=== PATIENT | male | born 1940 | race Caucasian/White ===

== ENCOUNTER 2016-07-23 09:07 | Observation (INO) | payer OTHER ==
[2016-07-23] MEDS ORDERED: TUSSIONEX PENNKINETIC SUSP PO PRN (10:57)
[2016-07-23] MEDS: DUONEB 0.5 MG/3 MG NEB SCH ×4 (11:33→20:23)
[2016-07-23 11:53] LABS: BASOPHILS # (AUTO) 0.1 X10^3/uL (0.0-0.1); BASOPHILS % (AUTO) 0.7 % (0.2-1.0); EOSINOPHILS # (AUTO) 0.2 x10^3/uL (0.0-0.2); EOSINOPHILS % (AUTO) 1.9 % (0.9-2.9); HEMATOCRIT 42.4 % (42.0-54.0); HEMOGLOBIN 14.5 g/dL (13.5-18.0); LYMPHOCYTES # (AUTO) 1.3 X10^3/uL (1.3-2.9); MEAN CORPUSCULAR HGB CONC 34.3 g/dL (33.0-35.0); MEAN CORPUSCULAR VOLUME 81.7 fL (80.0-100.0); MEAN PLATELET VOLUME 8.5 fL (7.4-11.0); MONOCYTES # (AUTO) 0.8 x10^3/uL (0.3-0.8); MONOCYTES % (AUTO) 7.9 % (0.0-13.0); NEUTROPHILS # (AUTO) 8.2 x10^3/uL (2.2-4.8); NEUTROPHILS % (AUTO) 77.5 % (42.0-75.0); PLATELET COUNT 203 X10^3/uL (150.0-450.0); RED BLOOD COUNT 5.19 X10^6/uL (4.7-6.0); RED CELL DISTRIBUTION WIDTH 14.7 % (11.6-16.5); WHITE BLOOD COUNT 10.6 X10^3/uL (3.6-10.0)
[2016-07-23 12:00] LABS: ALANINE AMINOTRANSFERASE 15 Units/L (12-78); ALKALINE PHOSPHATASE 86 Units/L (46-116); ASPARTATE AMINO TRANSFERASE 14 Units/L (15-37); BLOOD UREA NITROGEN 21 mg/dL (7-18); CALCIUM 9.4 mg/dL (8.5-10.1); CARBON DIOXIDE 28.9 mmol/L (21-32); CHLORIDE 101 mmol/L (98-107); COR NA(FOR HYPERGLY) 143 mmol/L (136-145); CREATININE 1.09 mg/dL (0.70-1.30); GLUCOSE 160 mg/dL (65-99); SODIUM 142 mmol/L (136-145); eGFR BLACK RACES > 60 (>60); eGFR NON BLACK RACES > 60 (>60)
--- NOTE | 2016-07-23 12:32 | RAD ---
HISTORY: Pneumonia, coughing Study: Two-view Chest Comparison: Findings: The trachea is midline . There is no widening or shift of mediastinum. The cardiac silhouette appear s within normal limits. The costophrenic angles are sharp and both diaphragms are adequately maintai jeffrey. The lungs are adequately aerated. Osseous structures are within normal limits for the patient's age peribronchial cuffing centrally consistent with bronchitis. IMPRESSION: 1. Heart normal size possible bronchitis. No evidence of bacterial pneumonia. Reported By:
[2016-07-23 12:34] VITALS: BMI 26.4
[2016-07-23] MEDS ORDERED: NS 1/2 1000 ML IV 1,000 ML IV ONE (12:38)
[2016-07-23] MEDS: LEVAQUIN PREMIX IV 750 MG 750 MG/150 ML BAG IV SCH (12:48)
[2016-07-23] MEDS: NS 1/2 1000 ML IV 1,000 ML IV SCH (12:48)
[2016-07-23] MEDS: ROBITUSSIN DM PO SCH ×3 (12:48→20:21)
[2016-07-23] MEDS ORDERED: POTASSIUM CHLORIDE LIQ 20 MEQ UDC PO PRN (17:46)
[2016-07-23] MEDS ORDERED: K-LYTE EFFERVESCENT PO PRN (17:46)
[2016-07-23] MEDS: K-DUR TAB 20 MEQ PO PRN (19:13)
[2016-07-23] MEDS ORDERED: TYLENOL 325 MG TAB PO PRN (20:06)
[2016-07-23] MEDS: NORVASC TAB 10 MG PO SCH ×2 (20:21→22:01)
[2016-07-23] MEDS: SINEMET (PLAIN) 25/250 MG PO SCH (20:24)
[2016-07-23] MEDS: ZOCOR TAB 40 MG PO SCH (20:25)
[2016-07-23] MEDS: SNACK - Diabetic Appropriate PO SCH (22:00)
[2016-07-24] MEDS: DUONEB 0.5 MG/3 MG NEB SCH ×6 (01:08→20:45)
[2016-07-24] MEDS ORDERED: RESTORIL CAP 15 MG PO PRN (01:23)
[2016-07-24] MEDS: NS 1/2 1000 ML IV 1,000 ML IV SCH ×2 (01:37→18:03)
[2016-07-24] MEDS ORDERED: NS 1/2 1000 ML IV 1,000 ML IV ONE ×2 (02:38→17:59)
[2016-07-24 06:01] LABS: BASOPHILS # (AUTO) 0.1 X10^3/uL (0.0-0.1); BASOPHILS % (AUTO) 0.8 % (0.2-1.0); EOSINOPHILS # (AUTO) 0.1 x10^3/uL (0.0-0.2); EOSINOPHILS % (AUTO) 1.5 % (0.9-2.9); HEMATOCRIT 37.2 % (42.0-54.0); HEMOGLOBIN 12.6 g/dL (13.5-18.0); MEAN CORPUSCULAR HEMOGLOBIN 27.7 pg (27.0-34.0); MEAN CORPUSCULAR HGB CONC 33.8 g/dL (33.0-35.0); MEAN CORPUSCULAR VOLUME 81.8 fL (80.0-100.0); MEAN PLATELET VOLUME 8.7 fL (7.4-11.0); MONOCYTES % (AUTO) 9.7 % (0.0-13.0); NEUTROPHILS # (AUTO) 7.8 x10^3/uL (2.2-4.8); PLATELET COUNT 181 X10^3/uL (150.0-450.0); RED BLOOD COUNT 4.54 X10^6/uL (4.7-6.0); RED CELL DISTRIBUTION WIDTH 14.7 % (11.6-16.5); WHITE BLOOD COUNT 9.9 X10^3/uL (3.6-10.0)
[2016-07-24 06:14] LABS: ALANINE AMINOTRANSFERASE 14 Units/L (12-78); ALBUMIN 3.2 g/dL (3.4-5.0); ALKALINE PHOSPHATASE 68 Units/L (46-116); ASPARTATE AMINO TRANSFERASE 14 Units/L (15-37); BLOOD UREA NITROGEN 18 mg/dL (7-18); CALCIUM 8.8 mg/dL (8.5-10.1); CARBON DIOXIDE 24.7 mmol/L (21-32); CHLORIDE 104 mmol/L (98-107); COR CA(FOR HYPOALB) 9.4 mg/dL (8.5-10.1); COR NA(FOR HYPERGLY) 144 mmol/L (136-145); CREATININE 1.12 mg/dL (0.70-1.30); GLUCOSE 175 mg/dL (65-99); MAGNESIUM 1.7 mg/dL (1.7-2.9); SODIUM 142 mmol/L (136-145); TOTAL PROTEIN 6.6 g/dL (6.4-8.2); eGFR BLACK RACES > 60 (>60); eGFR NON BLACK RACES > 60 (>60)
[2016-07-24] MEDS: K-DUR TAB 20 MEQ PO PRN (06:30)
--- NOTE | 2016-07-24 06:51 | RAD ---
HISTORY: Cough Study: Chest one view Comparison: July 23, 2016 Findings: The trachea is midline. The cardiac silhouette is unremarkable. The lungs are free of acute alveol ar infiltrates. No pleural effusions are identified. There is peribronchial thickening consistent wi th bronchitis.. The bony thorax is unremarkable. IMPRESSION: . Peribronchial thickening consistent with bronchitis Reported By:
[2016-07-24] MEDS: LEVAQUIN PREMIX IV 750 MG 750 MG/150 ML BAG IV SCH (08:40)
[2016-07-24] MEDS: SINEMET (PLAIN) 25/250 MG PO SCH ×2 (08:41→20:32)
[2016-07-24] MEDS: ECOTRIN TAB 325 MG PO SCH (08:41)
[2016-07-24] MEDS: HYZAAR 50/12.5 MG PO SCH (08:41)
[2016-07-24] MEDS: ROBITUSSIN DM PO SCH ×4 (08:41→20:32)
[2016-07-24] MEDS ORDERED: MAALOX or MYLANTA PO PRN (11:32)
[2016-07-24] MEDS ORDERED: GLUCOPHAGE ONE (17:59)
[2016-07-24] MEDS: GLUCOPHAGE PO SCH (18:04)
[2016-07-24] MEDS: ZOCOR TAB 40 MG PO SCH (20:33)
[2016-07-24] MEDS: NORVASC TAB 10 MG PO SCH (20:33)
[2016-07-24] MEDS: SNACK - Diabetic Appropriate PO SCH (20:34)
--- NOTE | 2016-07-24 22:00 | DR.UPDATE ---
H&P Update History and Physical Update: H&P UPDATE FOR ADMISSION 07/23/16 MR. KIM'S H&P WAS COMPLETED IN OUR OFFICE PRIOR TO ADMISSION. HE HAS BEEN SEEN AND EXAMINED WITH NO CHANGES NOTED.
--- NOTE | 2016-07-24 22:03 | PCM.PROG ---
Progress Note - Progress Note for Day of Date: 07/24/16 - Subjective Subjective: PATIENT RESTS IN BED, AT BEDSIDE. PATIENT CONTINUES PNEUMONIA PROTOCOL WITH IV LEVAQUIN, DUONEBS, ROBITUSSIN, TUSSIONEX, AND SUPPLEMENTAL OXYGEN. PATIENT IS NOTED WITH A COARSE, NON-PRODUCTIVE COUGH. PATIENT IS AFEBRILE. ON AUSCULTATION, LUNGS ARE NOTED WITH WHEEZING THROUGHOUT. CBC WNL EXCEPT: H/H 12.6/37.2. CMP WNL EXCEPT: POTASSIUM 3.2, GLUCOSE 175, ALBUMIN 3.2. WE WILL CONTINUE CURRENT TREATMENT AND FOLLOW UP IN AM WITH LABS AND CHEST XRAY. - Past Medical Family Social History Past Med/Fam/Surg Hx: No changes since H&P Allergies: Allergies No Known Drug Allergy Allergy (Verified 11/03/14 15:11) - Review of Systems ROS: No change since H&P - Vital Signs and I&O's Vital Signs: Temperature 98.1 F Pulse Rate [Left Brachial] 100 Pulse Rate [Right Brachial] 55 Pulse Rate 99 Respiratory Rate 20 Blood Pressure [Right Arm] 113/57 Blood Pressure [Left Arm] 130/71 Blood Pressure 158/90 O2 Sat by Pulse Oximetry 95 Intake and Output: Intake & Output 07/22/16 07/23/16 07/24/16 07/25/16 11:59 11:59 11:59 11:59 Intake Total 1660 695 Output Total 2550 Balance -890 695 - Physical Exam Oriented: Normal, Time, Person, Place Eyes: Normal. negative: Diplopia, Discharge, Pain, Redness, Photophobia Ear: Normal. negative: Swelling, Ecchymosis, Hemotypanum, Abrasion, Laceration Nose: Discharge. negative: Injected, Blood Throat: Red, Dry. negative: Exudate Respiratory: Generalized, Wheezes Cardiovascular: Normal. negative: Murmur, Edema : Normal. negative: Dysuria, Hematuria, Frequency, Discharge, Testicular Pain Auscultation: Bowel Sounds: Normal. negative: Bruit Palpation: Normal. negative: Spleen Enlarged, Liver Enlarged, Mass Pulsatile Tenderness: Normal. negative: Rebound, Guarding, Rigidity Skin: Normal. negative: Diaphoresis, Wound, Bruising, Ecchymosis Musculoskeletal: Normal Psychiatric: Normal Mood Description: Calm, Appropriate Affect: Normal Speech Pattern: Clear, Appropriate - Laboratory and Diagnostics Result Diagrams: 07/24/16 03:23 07/24/16 13:10 Labs: 07/23/16 11:39 Sputum - Expectorated Sputum Sputum Culture - Preliminary 07/23/16 11:39 Sputum - Expectorated Sputum - Final Laboratory WBC 9.9 X10^3/uL (3.6-10.0) 07/24/16 03:23 RBC 4.54 X10^6/uL (4.7-6.0) L 07/24/16 03:23 Hgb 12.6 g/dL (13.5-18.0) L 07/24/16 03:23 Hct 37.2 % (42.0-54.0) L 07/24/16 03:23 MCV 81.8 fL (80.0-100.0) 07/24/16 03:23 MCH 27.7 pg (27.0-34.0) 07/24/16 03:23 MCHC 33.8 g/dL (33.0-35.0) 07/24/16 03:23 RDW 14.7 % (11.6-16.5) 07/24/16 03:23 Plt Count 181 X10^3/uL (150.0-450.0) 07/24/16 03:23 MPV 8.7 fL (7.4-11.0) 07/24/16 03:23 Neut % 78.0 % (42.0-75.0) H 07/24/16 03:23 Lymph % 10.0 % (21.0-51.0) L 07/24/16 03:23 [place] % 9.7 % (0.0-13.0) 07/24/16 03:23 Eos % 1.5 % (0.9-2.9) 07/24/16 03:23 Baso % 0.8 % (0.2-1.0) 07/24/16 03:23 Neut # 7.8 x10^3/uL (2.2-4.8) H 07/24/16 03:23 Lymph # 1.0 X10^3/uL (1.3-2.9) L 07/24/16 03:23 [place] # 1.0 x10^3/uL (0.3-0.8) H 07/24/16 03:23 Eos # 0.1 x10^3/uL (0.0-0.2) 07/24/16 03:23 Baso # 0.1 X10^3/uL (0.0-0.1) 07/24/16 03:23 Absolute Nucleated RBC 0.0 /100WBC 07/24/16 03:23 Sodium 142 mmol/L (136-145) 07/24/16 03:23 Corrected Sodium 144 mmol/L (136-145) 07/24/16 03:23 Potassium 4.2 mmol/L (3.5-5.1) 07/24/16 13:10 Chloride 104 mmol/L (98-107) 07/24/16 03:23 Carbon Dioxide 24.7 mmol/L (21-32) 07/24/16 03:23 BUN 18 mg/dL (7-18) 07/24/16 03:23 Creatinine 1.12 mg/dL (0.70-1.30) 07/24/16 03:23 Est GFR (MDRD) Af Amer > 60 (>60) 07/24/16 03:23 Est GFR (MDRD) Non-Af > 60 (>60) 07/24/16 03:23 Glucose 175 mg/dL (65-99) H 07/24/16 03:23 Calcium 8.8 mg/dL (8.5-10.1) 07/24/16 03:23 Corrected Calcium 9.4 mg/dL (8.5-10.1) 07/24/16 03:23 Magnesium 1.7 mg/dL (1.7-2.9) 07/24/16 03:23 Total Bilirubin 0.60 mg/dL (0.2-1.0) 07/24/16 03:23 AST 14 Units/L (15-37) L 07/24/16 03:23 ALT 14 Units/L (12-78) 07/24/16 03:23 Alkaline Phosphatase 68 Units/L (46-116) 07/24/16 03:23 Total Protein 6.6 g/dL (6.4-8.2) 07/24/16 03:23 Albumin 3.2 g/dL (3.4-5.0) L 07/24/16 03:23 Globulin 3.4 g/dL (2.5-4.5) 07/24/16 03:23 Albumin/Globulin Ratio 0.9 Ratio (1.1-2.1) L 07/24/16 03:23 Influenza A (H1N1) PCR Not detected (NOT DETECT) 07/23/16 12:57 Influenza Type A (PCR) Negative (NEGATIVE) 07/23/16 12:57 Influenza Type B (PCR) Negative (NEGATIVE) 07/23/16 12:57 - Plan (1) Bronchopneumonia Status: Acute Plan: CONTINUE IV LEVAQUIN, DUONEBS, ROBITUSSIN, TUSSIONEX, SUPPLEMENTAL OXYGEN , MONITOR LABS AND CHEST XRAY. (2) Essential hypertension Status: Chronic
[2016-07-25] MEDS: DUONEB 0.5 MG/3 MG NEB SCH ×3 (01:02→08:46)
[2016-07-25] MEDS ORDERED: NS 1/2 1000 ML IV 1,000 ML IV ONE (04:59)
[2016-07-25] MEDS: NS 1/2 1000 ML IV 1,000 ML IV SCH (05:21)
[2016-07-25 06:30] LABS: ALANINE AMINOTRANSFERASE 12 Units/L (12-78); ALBUMIN 3.3 g/dL (3.4-5.0); ALKALINE PHOSPHATASE 69 Units/L (46-116); ASPARTATE AMINO TRANSFERASE 16 Units/L (15-37); BLOOD UREA NITROGEN 11 mg/dL (7-18); CALCIUM 9.4 mg/dL (8.5-10.1); CARBON DIOXIDE 25.7 mmol/L (21-32); CHLORIDE 106 mmol/L (98-107); COR NA(FOR HYPERGLY) 144 mmol/L (136-145); CREATININE 0.95 mg/dL (0.70-1.30); GLUCOSE 130 mg/dL (65-99); MAGNESIUM 1.9 mg/dL (1.7-2.9); SODIUM 143 mmol/L (136-145); TOTAL PROTEIN 6.7 g/dL (6.4-8.2); eGFR BLACK RACES > 60 (>60); eGFR NON BLACK RACES > 60 (>60)
[2016-07-25 06:37] LABS: BASOPHILS # (AUTO) 0.1 X10^3/uL (0.0-0.1); BASOPHILS % (AUTO) 1.3 % (0.2-1.0); EOSINOPHILS # (AUTO) 0.2 x10^3/uL (0.0-0.2); EOSINOPHILS % (AUTO) 3.5 % (0.9-2.9); HEMATOCRIT 36.6 % (42.0-54.0); HEMOGLOBIN 12.5 g/dL (13.5-18.0); LYMPHOCYTES % (AUTO) 14.5 % (21.0-51.0); MEAN CORPUSCULAR HEMOGLOBIN 28.1 pg (27.0-34.0); MEAN CORPUSCULAR HGB CONC 34.3 g/dL (33.0-35.0); MEAN CORPUSCULAR VOLUME 82.1 fL (80.0-100.0); MEAN PLATELET VOLUME 8.6 fL (7.4-11.0); MONOCYTES # (AUTO) 0.7 x10^3/uL (0.3-0.8); MONOCYTES % (AUTO) 10.4 % (0.0-13.0); NEUTROPHILS % (AUTO) 70.3 % (42.0-75.0); PLATELET COUNT 189 X10^3/uL (150.0-450.0); RED BLOOD COUNT 4.46 X10^6/uL (4.7-6.0); RED CELL DISTRIBUTION WIDTH 14.3 % (11.6-16.5); WHITE BLOOD COUNT 7.1 X10^3/uL (3.6-10.0)
--- NOTE | 2016-07-25 07:23 | RAD ---
HISTORY: Pneumonia Study: Single-view chest, done portably Comparison: July 24, 2016 Findings: Trachea is midline. Heart size is at the upper limits of normal with aortic uncoiling. Peribronchial cuffing is seen in the hilar regions bilaterally compatible with bronchitis. No consolidation, CHF, pleural fluid or pneumothorax is seen. Osseous structures are intact. IMPRESSION: Hypertensive configuration. Peribronchial cuffing in the hilar regions bilaterally, compatible with bronchitis. No consolidation is seen. There is no significant interval change. Reported By:
[2016-07-25] MEDS ORDERED: GLUCOPHAGE ONE (08:29)
[2016-07-25] MEDS: GLUCOPHAGE PO SCH (08:51)
[2016-07-25] MEDS: HYZAAR 50/12.5 MG PO SCH (08:51)
[2016-07-25] MEDS: LEVAQUIN PREMIX IV 750 MG 750 MG/150 ML BAG IV SCH (08:51)
[2016-07-25] MEDS: ECOTRIN TAB 325 MG PO SCH (08:51)
[2016-07-25] MEDS: ROBITUSSIN DM PO SCH (08:51)
[2016-07-25] MEDS: SINEMET (PLAIN) 25/250 MG PO SCH (08:51)
[2016-07-25 09:20] VITALS: BP 158/71
== END 2016-07-25 10:45 | disposition home or self-care (01) ==
LOC: MED/SURG 09:07 → UNDOADMOB 09:07 → MED/SURG 10:10
PROVIDERS: ADMIT Internal Medicine; ATTEND Internal Medicine
DX: J18.0 Bronchopneumonia, unspecified organism (principal); I10 Essential (primary) hypertension; D64.89 Other specified anemias; I25.10 Atherosclerotic heart disease of native coronary artery without angina pectoris; E11.65 Type 2 diabetes mellitus with hyperglycemia; E87.6 Hypokalemia
CPT/HCPCS: 36415; 71010; 71020; 80053; 83735; 84132; 85025; 87040; 87070; 87205; 87502; 87503; 94640; 94760; A4222; G0378; J1956; J7620

== ENCOUNTER 2022-10-01 08:16 | Inpatient (IN) ==
--- NOTE | 2022-10-01 12:10 | EKG ---
Test Reason : weakness Blood Pressure : */* mmHG Vent. Rate : 79 BPM Atrial Rate : 79 BPM P-R Int : 198 ms QRS Dur : 82 ms QT Int : 386 ms P-R-T Axes : 98 -7 11 degrees QTc Int : 442 ms Normal sinus rhythm Inferior infarct , age undetermined Abnormal ECG No previous ECGs available Confirmed by Arnold Iraheta ([id number]) on 10/02/2022 4:38:33 PM Referred By: Confirmed By: Arnold Iraheta
[2022-10-01] MEDS: NS 1,000 ML IV 1,000 ML IV SCH (12:15)
[2022-10-01 12:34] LABS: BASOPHILS # (AUTO) 0.1 X10^3/uL (0.0-0.1); EOSINOPHILS # (AUTO) 0.4 x10^3/uL (0.0-0.2); EOSINOPHILS % (AUTO) 4.3 % (0.9-2.9); HEMATOCRIT 42.1 % (42.0-54.0); HEMOGLOBIN 14.7 g/dL (13.5-18.0); LYMPHOCYTES # (AUTO) 1.3 X10^3/uL (1.3-2.9); LYMPHOCYTES % (AUTO) 15.2 % (21.0-51.0); MEAN CORPUSCULAR HEMOGLOBIN 28.4 pg (27.0-34.0); MEAN CORPUSCULAR VOLUME 81.2 fL (80.0-100.0); MEAN PLATELET VOLUME 8.1 fL (7.4-11.0); MONOCYTES # (AUTO) 0.7 x10^3/uL (0.3-0.8); MONOCYTES % (AUTO) 8.5 % (0.0-13.0); NEUTROPHILS # (AUTO) 5.9 x10^3/uL (2.2-4.8); PLATELET COUNT 248 X10^3/uL (150.0-450.0); RED BLOOD COUNT 5.18 X10^6/uL (4.7-6.0); RED CELL DISTRIBUTION WIDTH 14.6 % (11.6-16.5); WHITE BLOOD COUNT 8.3 X10^3/uL (3.6-10.0)
[2022-10-01 12:45] LABS: ALANINE AMINOTRANSFERASE 47 Units/L (12-78); ALBUMIN 3.8 g/dL (3.4-5.0); ALKALINE PHOSPHATASE 116 Units/L (46-116); ASPARTATE AMINO TRANSFERASE 31 Units/L (15-37); BLOOD UREA NITROGEN 21 mg/dL (7-18); CALCIUM 9.3 mg/dL (8.5-10.1); CARBON DIOXIDE 36.6 mmol/L (21-32); CHLORIDE 98 mmol/L (98-107); COR NA(FOR HYPERGLY) 142 mmol/L (136-145); CREATINE KINASE 63 Units/L (39-308); CREATININE 1.19 mg/dL (0.70-1.30); GLUCOSE 167 mg/dL (65-99); POTASSIUM 3.4 mmol/L (3.5-5.1); SODIUM 140 mmol/L (136-145); TOTAL PROTEIN 7.7 g/dL (6.4-8.2); eGFR NON BLACK RACES > 60 (>60)
[2022-10-01 16:08] LABS: APPEARANCE,URINE CLEAR (CLEAR); COLOR,URINE YELLOW (YELLOW)
[2022-10-01 16:09] LABS: BILIRUBIN,URINE NEGATIVE (NEGATIVE); BLOOD/HEMOGLOBIN,URINE NEGATIVE (NEGATIVE); GLUCOSE, URINE NEGATIVE (NEGATIVE); KETONES,URINE NEGATIVE (NEGATIVE); LEUKOCYTE ESTERASE ,URINE NEGATIVE (NEGATIVE); NITRITES,URINE NEGATIVE (NEGATIVE); PROTEIN,URINE NEGATIVE (NEGATIVE); UROBILINOGEN,URINE NORMAL (NORMAL)
[2022-10-01] MEDS: NovoLIN R (or HumuLIN R) SUBCUT PRN ×2 (17:02→21:11)
[2022-10-01] MEDS ORDERED: K-DUR TAB 20 MEQ PO PRN (18:49)
[2022-10-01] MEDS ORDERED: KLOR-CON PO PRN (18:49)
[2022-10-01] MEDS ORDERED: K-RIDER 10 MEQ/NS 100 ML 10 MEQ/100 ML BAG IV PRN (18:49)
[2022-10-01] MEDS ORDERED: POTASSIUM CHLORIDE LIQ 20 MEQ UDC PO PRN (18:49)
[2022-10-01] MEDS ORDERED: POTASSIUM CHL 60 MEQ/NS 0.45% 500 ML IV PRN (18:49)
[2022-10-01] MEDS ORDERED: POTASSIUM CHL 40 MEQ/NS 0.45% 500 ML IV PRN (18:49)
[2022-10-01] MEDS ORDERED: MICRO K EXTEN CAP 10 MEQ PO PRN (18:49)
[2022-10-01] MEDS ORDERED: MILK OF MAGNESIA PO PRN (20:24)
[2022-10-01] MEDS ORDERED: GLUCOPHAGE ONE (21:01)
[2022-10-01] MEDS: FLOMAX PO SCH (21:05)
[2022-10-01] MEDS: COLACE CAP 100 MG PO PRN (21:05)
[2022-10-01] MEDS: GLUCOPHAGE PO SCH (21:06)
[2022-10-01] MEDS: NORVASC TAB 10 MG PO SCH (21:06)
[2022-10-01] MEDS: SNACK - Diabetic Appropriate PO SCH (21:06)
[2022-10-01] MEDS: ZOCOR TAB 40 MG PO SCH (21:06)
[2022-10-01] MEDS: SINEMET (PLAIN) 25/100 MG PO SCH (21:06)
[2022-10-01] MEDS: MAGNESIUM SULFATE 1 GRAM/100 mL PREMIX 1 G/100 ML BAG IV PRN (21:11)
--- NOTE | 2022-10-01 23:41 | CT ---
HISTORYweakness, frequent fallsSTUDYBRAIN W/O [id number]/2023TECHNIQUE r including Automated Exposure Control (AEC) and adjustment of mA and kV were utilized.Contrast: NoneFINDINGSBRAIN PARENCHYMA: No acute hemorrhage, infarct, mass, or mass effect.Colon-white differentiation is maintained.Scattered white matter chronic small vessel ischemic changes.VENTRICLES/EXTRA-AXIAL SPACES: Unremarkable size and configuration. No hydrocephalus or extra-axial fluid collections.EXTRACRANIAL STRUCTURES:Unremarkable bones and soft tissues. Minimal frothy material in the sphenoid sinus.IMPRESSIONNo acute intracranial findings with atrophy and probable chronic small vessel ischemic change. MRI is more sensitive for acute infarct. Minimal frothy material in the sphenoid sinus.Electronically signed by: Sonu Morris (Oct 01, 2022 23:40:29)
[2022-10-02] MEDS: NS 1,000 ML IV 1,000 ML IV SCH ×4 (01:23→18:43)
[2022-10-02] MEDS ORDERED: GLUCOPHAGE ONE ×3 (03:42→19:28)
[2022-10-02] MEDS: GLUCOPHAGE PO SCH ×3 (05:50→21:36)
[2022-10-02] MEDS: NovoLIN R (or HumuLIN R) SUBCUT PRN ×3 (05:51→17:20)
[2022-10-02 06:40] LABS: BASOPHILS # (AUTO) 0.1 X10^3/uL (0.0-0.1); BASOPHILS % (AUTO) 1.1 % (0.2-1.0); EOSINOPHILS # (AUTO) 0.4 x10^3/uL (0.0-0.2); EOSINOPHILS % (AUTO) 4.3 % (0.9-2.9); HEMATOCRIT 37.1 % (42.0-54.0); LYMPHOCYTES % (AUTO) 10.2 % (21.0-51.0); MEAN CORPUSCULAR HEMOGLOBIN 28.5 pg (27.0-34.0); MEAN CORPUSCULAR VOLUME 81.3 fL (80.0-100.0); MEAN PLATELET VOLUME 8.5 fL (7.4-11.0); MONOCYTES # (AUTO) 0.8 x10^3/uL (0.3-0.8); MONOCYTES % (AUTO) 9.1 % (0.0-13.0); NEUTROPHILS # (AUTO) 7.1 x10^3/uL (2.2-4.8); NEUTROPHILS % (AUTO) 75.3 % (42.0-75.0); PLATELET COUNT 230 X10^3/uL (150.0-450.0); RED BLOOD COUNT 4.57 X10^6/uL (4.7-6.0); RED CELL DISTRIBUTION WIDTH 14.7 % (11.6-16.5); WHITE BLOOD COUNT 9.4 X10^3/uL (3.6-10.0)
[2022-10-02 06:48] LABS: ALANINE AMINOTRANSFERASE 38 Units/L (12-78); ALBUMIN 3.1 g/dL (3.4-5.0); ALKALINE PHOSPHATASE 93 Units/L (46-116); ASPARTATE AMINO TRANSFERASE 35 Units/L (15-37); BLOOD UREA NITROGEN 25 mg/dL (7-18); CALCIUM 8.5 mg/dL (8.5-10.1); CARBON DIOXIDE 29.5 mmol/L (21-32); CHLORIDE 99 mmol/L (98-107); COR CA(FOR HYPOALB) 9.2 mg/dL (8.5-10.1); COR NA(FOR HYPERGLY) 141 mmol/L (136-145); CREATININE 1.09 mg/dL (0.70-1.30); GLUCOSE 249 mg/dL (65-99); POTASSIUM 3.5 mmol/L (3.5-5.1); SODIUM 137 mmol/L (136-145); TOTAL PROTEIN 6.4 g/dL (6.4-8.2); eGFR NON BLACK RACES > 60 (>60)
--- NOTE | 2022-10-02 07:55 | RAD ---
HISTORYSOB Relevant Clinical InformationSTUDYCHEST, 1 VIEWCOMPARISONNone availableFINDINGSThe trachea is midline, normal heart size, there is uncoiling of the aortic arch. There is mild elevation of the right diaphragm. There is no evidence of pneumothorax or pleural effusions. There is left lower lobe linear radiopacities that could correspond with atelectasis or chronic changes. No dominant alveolar radiopacities.IMPRESSIONLeft lower lobe radiopacities could represent subsegmental atelectasis versus chronic changes.Electronically signed by: Bryanna Kellogg (Oct 02, 2022 07:53:45)
[2022-10-02] MEDS: SINEMET (PLAIN) 25/100 MG PO SCH ×2 (08:19→20:28)
[2022-10-02] MEDS: PriLOSEC PO SCH (08:19)
[2022-10-02] MEDS: HYZAAR 50/12.5 MG PO SCH (08:19)
[2022-10-02] MEDS: ASPIRIN EC 81 MG PO SCH (08:19)
[2022-10-02] MEDS: MAGNESIUM SULFATE 1 GRAM/100 mL PREMIX 1 G/100 ML BAG IV PRN (08:22)
[2022-10-02] MEDS ORDERED: PATIENT'S HOME MEDICATION (Losartan-Hydrochlorothiazide 100-25 mg tablet) PO SCH (09:00)
[2022-10-02] MEDS: LOVENOX INJ 40 MG SYR SC SCH (10:15)
--- NOTE | 2022-10-02 11:02 | DR.UPDATE ---
H&P Update Prescription drug monitoring program results: PDMP reviewed and no concerns identified H&P Reviewed: Yes Any changes to H&P?: Yes Changes noted:: WAS A DIRECT ADMISSION FROM OUR OFFICE FOR FURTHER EVALUATION AND TREATMENT OF GENERALIZED WEANESS, UNSTEADY GAIT, AND FREQUENT FALLS. PATIENT REPORTS FALLING SEVERAL TIMES OVER THE PAST FEW MONTHS, BUT REPORTS THAT IT HAS BEEN WORSE OVER THE PAST FEW WEEKS. HIS FAMILY FEELS THAT HE IS UNSAFE AT HOME AND COULD BENEFIT FROM PHYSICAL THERAPY SERVICES IN THE HALF-WAY UNTIL HE IS SAFE TO RETURN HOME. ON ARRIVAL TO THE HOSPITAL, HIS VITALS WERE 97.8-88-18-95%-146/69. LABS WERE OBTAINED. WBC 8.3, RBC 5.18, HGB 14.7, HCT 42.1, PLT COUNT 248, SODIUM 140, POTASSIUM 3.4, CHLORIDE 98, CARBON DIOXIDE 36.6, BUN 21, CREATININE 1.19, GLUCOSE 167, CALCIUM 9.3, MAGNESIUM 1.6, TOTAL BILI 1.30, AST 31, ALT 47, ALK PHOS 116, CREATINE KINASE 63, TROPONIN 5.3, TOTAL PROTEIN 7.7. A URINALYSIS WAS OBTAINED AND WAS UNREMARKABLE, HOWEVER, A CULTURE WAS SET UP. A CHEST XRAY WAS OBTAINED AND REVEALED: Left lower lobe radiopacities could represent subsegmental atelectasis versus chronic changes. EKG REVEALED: NORMAL SINUS RHYTHM WITH HR 79. A BRAIN CT WAS OBTAINED AND REVEALED: No acute intracranial findings with atrophy and probable chronic small vessel ischemic change. MRI is more sensitive for acute infarct. Minimal frothy material in the sphenoid sinus. HE WAS STARTED ON NORMAL SALINE AT 80 ML/HR, THE POTASSIUM AND MAGNESIUM PROTOCOLS, OTBS ACHS, HUMULIN R SLIDING SCALE, MILK OF MAGNESIA 30ML Q12H PRN, COLACE 200MG Q12H PRN, LOVENOX 40MG SC DAILY, AND HIS HOME MEDICATIONS WERE RESUMED. HOME MEDS INCLUDE: NORVASC, ASPIRIN, SINEMET, HYZAAR, GLUCOPHAGE, ZOCOR, AND FLOMAX. WE WILL HAVE PHYSICAL THERAPY EVALATE PATIENT. OTHERWISE, WE PLAN TO FOLLOW-UP WITH AM LABS AND CONTINUE TO MONITOR. ADMITTING DX: HYPOMAGENESEMIA, HYPOKALEMIA, GENERALIZED WEAKNESS, UNSTEADY GAIT, FREQUENT FALLS, HTN, TYPE 2 DM. TIME SPENT ON CLINICAL ASSESSMENT, REVIWING LABS AND IMAGING, DECISION MAKING, AND DOCUMENTATION GREATER THAN 75 MINUTES. Patient was examined?: Yes
[2022-10-02] MEDS: ZOCOR TAB 40 MG PO SCH (20:28)
[2022-10-02] MEDS: FLOMAX PO SCH (20:28)
[2022-10-02] MEDS: NORVASC TAB 10 MG PO SCH (20:28)
[2022-10-02] MEDS: SNACK - Diabetic Appropriate PO SCH (20:29)
--- NOTE | 2022-10-02 23:28 | PCM.PROG ---
Progress Note - Progress Note for Day of Date of Exam: 10/02/22 - Subjective Subjective: IS CURRENTLY INPATIENT STATUS FOR TREATMENT OF HYPOMAGNESEMIA, HYPOKALEMIA, GENERALIZED WEAKNESS, UNSTEADY GAIT, AND FREQUENT FALLS. HE HAS A PMH OF PARKINSONS DISEASE, HYPERLIPIDEMIA, HTN, GERD, BPH, KIDNEY STONES, DM II, AND PROSTATE CANCER. TODAY, PATIENT IS ALERT AND ORIENTED, LYING IN BED ON MORNING ROUNDS. HE CONTINUES TO COMPLAIN OF WEAKNESS. STAFF REPORTS THAT HE HAS AN UNSTEADY GAIT AND REQUIRES MODERATE ASSISTANCE ON AMBULATION. ON EXAMINATION, HEART IS REGULAR IN RATE AND RHYTHM. BILATERAL LUNGS ARE NOTED WITH DIMINISHED LUNG SOUNDS THROUGHOUT. ABDOMEN IS ROUND, SOFT, AND NON-TENDER WITH NORMAL BOWEL SOUNDS NOTED IN ALL QUADRANTS. HER VITALS THIS MORNING ARE: 97.9-95-18-94%-138/70. LABS WERE OBTAINED. WBC 9.4, RBC 4.57, HGB 13.0, HCT 37.1, PLT COUNT 230, SODIUM 137, POTASSIUM 3.5, CHLORIDE 99, CARBON DIOXIDE 29.5, BUN 25, CREATININE 1.09, GLUCOSE 249, CALCIUM 8.5, MAGNESIUM 1.9, AST 35, ALT 38, ALK PHOS 93, TOTAL PROTEIN 6.4, ALBUMIN 3.1. URINE CULTURE IS P ENDING. A BRAIN CT WITHOUT CONTRAST WAS OBTAINED YESTERDAY AND REVEALED: No acute intracranial findings with atrophy and probable chronic small vessel ischemic change. MRI is more sensitive for acute infarct. Minimal frothy material in the sphenoid sinus. HE IS CURRENTLY RECEIVING NORMAL SALINE AT 80 ML/HR, THE POTASSIUM AND MAGNESIUM PROTOCOLS, OTBS ACHS, HUMULIN R SLIDING SCALE, MILK OF MAGNESIA 30ML Q12H PRN, COLACE 200MG Q12H PRN, LOVENOX 40MG SC DAILY, AND HIS HOME MEDICATIONS WERE RESUMED. HOME MEDS INCLUDE: NORVASC, ASPIRIN, SINEMET, HYZAAR, GLUCOPHAGE, ZOCOR, AND FLOMAX. WE WILL CONTINUE WITH CURRENT PLAN OF CARE TODAY. WE WILL HAVE PHYSICAL THERAPY EVALUATE HIM. OTHERWISE, WE PLAN TO FOLLOW-UP WITH AM LABS AND CONTINUE TO MONITOR. TIME SPENT ON CLINICAL ASSESSMENT, REVIEWING LABS AND IMAGING, DECISION MAKING, AND DOCUMENTATION GREATER THAN 45 MINUTES. - Past Medical Family Social History Past Med/Fam/Surg Hx: No changes since H&P Allergies: Allergies No Known Allergies Allergy (Verified 10/01/22 12:09) - Review of Systems ROS: No change since H&P - Vital Signs and I&O's Vital Signs: Temperature 98.4 F Temperature 97.8 F Pulse Rate [Right Brachial] 78 Pulse Rate [Right Brachial] 88 Respiratory Rate 20 Respiratory Rate 18 Blood Pressure [Right Arm] 145/77 Blood Pressure [Left Arm] 158/71 O2 Sat by Pulse Oximetry 94 O2 Sat by Pulse Oximetry 95 Intake and Output: Intake & Output 09/30/22 10/01/22 10/02/22 10/03/22 11:59 11:59 11:59 11:59 Intake Total 1738 / 1738 1070 / 1070 Output Total 200 / 200 Balance 1538 / 1538 1070 / 1070 - Physical Exam Oriented: Normal Eyes: Normal Ear: Normal Nose: Normal Throat: Normal Respiratory: Normal Cardiovascular: Normal : Normal Auscultation: Bowel Sounds: Normal Palpation: Normal Tenderness: Normal Skin: Normal Musculoskeletal: Normal Psychiatric: Normal Mood Description: Calm Affect: Normal Speech Pattern: Clear, Appropriate - Laboratory and Diagnostics Result Diagrams: 10/02/22 05:16 10/02/22 05:16 Labs: 10/01/22 15:45 Urine,Clean Catch Urine Culture - Preliminary Laboratory WBC 9.4 X10^3/uL (3.6-10.0) 10/02/22 05:16 RBC 4.57 X10^6/uL (4.7-6.0) L 10/02/22 05:16 Hgb 13.0 g/dL (13.5-18.0) L 10/02/22 05:16 Hct 37.1 % (42.0-54.0) L 10/02/22 05:16 MCV 81.3 fL (80.0-100.0) 10/02/22 05:16 MCH 28.5 pg (27.0-34.0) 10/02/22 05:16 MCHC 35.0 g/dL (33.0-35.0) 10/02/22 05:16 RDW 14.7 % (11.6-16.5) 10/02/22 05:16 Plt Count 230 X10^3/uL (150.0-450.0) 10/02/22 05:16 MPV 8.5 fL (7.4-11.0) 10/02/22 05:16 Neut % (Auto) 75.3 % (42.0-75.0) H 10/02/22 05:16 Lymph % (Auto) 10.2 % (21.0-51.0) L 10/02/22 05:16 [place] % (Auto) 9.1 % (0.0-13.0) 10/02/22 05:16 Eos % (Auto) 4.3 % (0.9-2.9) H 10/02/22 05:16 Baso % (Auto) 1.1 % (0.2-1.0) H 10/02/22 05:16 Neut # (Auto) 7.1 x10^3/uL (2.2-4.8) H 10/02/22 05:16 Lymph # (Auto) 1.0 X10^3/uL (1.3-2.9) L 10/02/22 05:16 [place] # (Auto) 0.8 x10^3/uL (0.3-0.8) 10/02/22 05:16 Eos # (Auto) 0.4 x10^3/uL (0.0-0.2) H 10/02/22 05:16 Baso # (Auto) 0.1 X10^3/uL (0.0-0.1) 10/02/22 05:16 Absolute Nucleated RBC 0.1 /100WBC 10/02/22 05:16 Sodium 137 mmol/L (136-145) 10/02/22 05:16 Corrected Sodium 141 mmol/L (136-145) 10/02/22 05:16 Potassium 3.5 mmol/L (3.5-5.1) 10/02/22 05:16 Chloride 99 mmol/L (98-107) 10/02/22 05:16 Carbon Dioxide 29.5 mmol/L (21-32) 10/02/22 05:16 BUN 25 mg/dL (7-18) H 10/02/22 05:16 Creatinine 1.09 mg/dL (0.70-1.30) 10/02/22 05:16 Est GFR (MDRD) Af Amer > 60 (>60) 10/02/22 05:16 Est GFR (MDRD) Non-Af > 60 (>60) 10/02/22 05:16 Glucose 249 mg/dL (65-99) H 10/02/22 05:16 POC Glucose (mg/dL) 148 mg/dL (65-99) H 10/02/22 20:58 Calcium 8.5 mg/dL (8.5-10.1) 10/02/22 05:16 Corrected Calcium 9.2 mg/dL (8.5-10.1) 10/02/22 05:16 Magnesium 1.9 mg/dL (2.0-2.9) L 10/02/22 05:16 Total Bilirubin 0.80 mg/dL (0.2-1.0) 10/02/22 05:16 AST 35 Units/L (15-37) 10/02/22 05:16 ALT 38 Units/L (12-78) 10/02/22 05:16 Alkaline Phosphatase 93 Units/L (46-116) 10/02/22 05:16 Creatine Kinase 63 Units/L (39-308) 10/01/22 12:08 Troponin I High Sens 5.3 ng/L (4.0-60.0) 10/01/22 12:08 Total Protein 6.4 g/dL (6.4-8.2) 10/02/22 05:16 Albumin 3.1 g/dL (3.4-5.0) L 10/02/22 05:16 Globulin 3.3 g/dL (2.5-4.5) 10/02/22 05:16 Albumin/Globulin Ratio 0.9 Ratio (1.1-2.1) L 10/02/22 05:16 Specimen Type Random urine 10/01/22 15:45 Urine Color Yellow (YELLOW) 10/01/22 15:45 Urine Appearance Clear (CLEAR) 10/01/22 15:45 Urine pH 6.0 (5.0 - 8.0) 10/01/22 15:45 Ur Specific Arthur 1.015 (1.000-1.030) 10/01/22 15:45 Urine Protein Negative (NEGATIVE) 10/01/22 15:45 Urine Glucose (UA) Negative (NEGATIVE) 10/01/22 15:45 Urine Ketones Negative (NEGATIVE) 10/01/22 15:45 Urine Blood Negative (NEGATIVE) 10/01/22 15:45 Urine Nitrite Negative (NEGATIVE) 10/01/22 15:45 Urine Bilirubin Negative (NEGATIVE) 10/01/22 15:45 Urine Urobilinogen Normal (NORMAL) 10/01/22 15:45 Ur Leukocyte Esterase Negative (NEGATIVE) 10/01/22 15:45 - Plan (1) Hypomagnesemia Status: Acute Plan: NORMAL SALINE AT 80 ML/HR, THE POTASSIUM AND MAGNESIUM PROTOCOLS, OTBS ACHS, HUMULIN R SLIDING SCALE, MILK OF MAGNESIA 30ML Q12H PRN, COLACE 200MG Q12H PRN, LOVENOX 40MG SC DAILY, AND HIS HOME MEDICATIONS WERE RESUMED. HOME MEDS INCLUDE: NORVASC, ASPIRIN, SINEMET, HYZAAR, GLUCOPHAGE, ZOCOR, AND FLOMAX. (2) Hypokalemia Status: Acute (3) Generalized weakness Status: Acute (4) Unsteady gait Status: Acute (5) Frequent falls Status: Acute (6) GERD (gastroesophageal reflux disease) Status: Chronic Qualifiers: Esophagitis presence: esophagitis presence not specified Qualified Code(s): K21.9 - Gastro-esophageal reflux disease without esophagitis (7) Hyperlipidemia Status: Chronic Qualifiers: Hyperlipidemia type: mixed hyperlipidemia Qualified Code(s): E78.2 - Mixed hyperlipidemia (8) BPH (benign prostatic hyperplasia) Status: Chronic Qualifiers: Lower urinary tract symptom presence: unspecified whether lower urinary tract symptoms present Qualified Code(s): N40.0 - Benign prostatic hyperplasia without lower urinary tract symptoms (9) DM II (diabetes mellitus, type II), controlled Status: Chronic Qualifiers: Diabetes mellitus watermelon harvesting supervisor insulin use: with watermelon harvesting supervisor use Diabetes mellitus complication status: with hyperglycemia Qualified Code(s): E11.65 - Type 2 diabetes mellitus with hyperglycemia; Z79.4 - assisted (current) use of insulin (10) Essential hypertension Status: Chronic
[2022-10-03] MEDS: NS 1,000 ML IV 1,000 ML IV SCH ×4 (04:29→23:30)
[2022-10-03] MEDS ORDERED: GLUCOPHAGE ONE ×3 (05:01→19:52)
[2022-10-03] MEDS: GLUCOPHAGE PO SCH ×4 (05:16→21:07)
[2022-10-03 05:41] LABS: BASOPHILS # (AUTO) 0.1 X10^3/uL (0.0-0.1); BASOPHILS % (AUTO) 1.1 % (0.2-1.0); EOSINOPHILS # (AUTO) 0.5 x10^3/uL (0.0-0.2); EOSINOPHILS % (AUTO) 4.8 % (0.9-2.9); HEMATOCRIT 38.6 % (42.0-54.0); HEMOGLOBIN 13.5 g/dL (13.5-18.0); LYMPHOCYTES # (AUTO) 1.3 X10^3/uL (1.3-2.9); LYMPHOCYTES % (AUTO) 12.1 % (21.0-51.0); MEAN CORPUSCULAR HEMOGLOBIN 28.3 pg (27.0-34.0); MEAN CORPUSCULAR HGB CONC 34.9 g/dL (33.0-35.0); MEAN CORPUSCULAR VOLUME 81.3 fL (80.0-100.0); MEAN PLATELET VOLUME 8.8 fL (7.4-11.0); MONOCYTES # (AUTO) 0.8 x10^3/uL (0.3-0.8); MONOCYTES % (AUTO) 7.3 % (0.0-13.0); NEUTROPHILS # (AUTO) 7.9 x10^3/uL (2.2-4.8); NEUTROPHILS % (AUTO) 74.7 % (42.0-75.0); PLATELET COUNT 277 X10^3/uL (150.0-450.0); RED BLOOD COUNT 4.75 X10^6/uL (4.7-6.0); RED CELL DISTRIBUTION WIDTH 14.6 % (11.6-16.5); WHITE BLOOD COUNT 10.6 X10^3/uL (3.6-10.0)
[2022-10-03 06:04] LABS: ALANINE AMINOTRANSFERASE 29 Units/L (12-78); ALBUMIN 3.5 g/dL (3.4-5.0); ALKALINE PHOSPHATASE 102 Units/L (46-116); ASPARTATE AMINO TRANSFERASE 27 Units/L (15-37); BLOOD UREA NITROGEN 16 mg/dL (7-18); CALCIUM 8.8 mg/dL (8.5-10.1); CARBON DIOXIDE 28.8 mmol/L (21-32); CHLORIDE 102 mmol/L (98-107); COR NA(FOR HYPERGLY) 141 mmol/L (136-145); CREATININE 0.93 mg/dL (0.70-1.30); GLUCOSE 148 mg/dL (65-99); MAGNESIUM 1.9 mg/dL (2.0-2.9); POTASSIUM 3.9 mmol/L (3.5-5.1); SODIUM 140 mmol/L (136-145); TOTAL PROTEIN 6.8 g/dL (6.4-8.2); eGFR NON BLACK RACES > 60 (>60)
[2022-10-03] MEDS: HYZAAR 50/12.5 MG PO SCH (09:39)
[2022-10-03] MEDS: LOVENOX INJ 40 MG SYR SC SCH (09:40)
[2022-10-03] MEDS: SINEMET (PLAIN) 25/100 MG PO SCH ×2 (09:40→20:25)
[2022-10-03] MEDS: ASPIRIN EC 81 MG PO SCH (09:40)
[2022-10-03] MEDS: PriLOSEC PO SCH (09:40)
[2022-10-03] MEDS: MAGNESIUM SULFATE 1 GRAM/100 mL PREMIX 1 G/100 ML BAG IV PRN ×2 (10:26→15:08)
[2022-10-03] MEDS: NovoLIN R (or HumuLIN R) SUBCUT PRN ×2 (12:09→20:29)
--- NOTE | 2022-10-03 13:20 | PCM.PROG ---
Progress Note - Progress Note for Day of Date of Exam: 10/03/22 - Subjective Subjective: IS CURRENTLY INPATIENT STATUS FOR TREATMENT OF HYPOMAGNESEMIA, HYPOKALEMIA, GENERALIZED WEAKNESS, UNSTEADY GAIT, AND FREQUENT FALLS. HE HAS A PMH OF PARKINSONS DISEASE, HYPERLIPIDEMIA, HTN, GERD, BPH, KIDNEY STONES, DM II, AND PROSTATE CANCER. TODAY, PATIENT IS ALERT AND ORIENTED, LYING IN BED ON MORNING ROUNDS. HE CONTINUES TO COMPLAIN OF WEAKNESS. STAFF REPORTS THAT HE HAS AN UNSTEADY GAIT AND REQUIRES MODERATE ASSISTANCE ON AMBULATION. ON EXAMINATION, HEART IS REGULAR IN RATE AND RHYTHM. BILATERAL LUNGS ARE NOTED WITH DIMINISHED LUNG SOUNDS THROUGHOUT. ABDOMEN IS ROUND, SOFT, AND NON-TENDER WITH NORMAL BOWEL SOUNDS NOTED IN ALL QUADRANTS. HER VITALS THIS MORNING ARE: 98.5-84-20-94%-139/71. LABS WERE OBTAINED. WBC 10.6, RBC 4.75, HGB 13.5, HCT 38.6, PLT COUNT 277, SODIUM 140, POTASSIUM 3.9, CHLORIDE 102, BUN 16, CREATININE 0.93, GLUCOSE 148, CALCIUM 8.8, MAGNESIUM 1.9, AST 27, ALT 29, ALK PHOS 102, TOTAL PROTEIN 6.8, ALBUMIN 3.5. URINE CULTURE IS PENDING. HE IS CURR ENTLY RECEIVING NORMAL SALINE AT 80 ML/HR, THE POTASSIUM AND MAGNESIUM PROTOCOLS, OTBS ACHS, HUMULIN R SLIDING SCALE, MILK OF MAGNESIA 30ML Q12H PRN, COLACE 200MG Q12H PRN, LOVENOX 40MG SC DAILY, AND HIS HOME MEDICATIONS WERE RESUMED. HOME MEDS INCLUDE: NORVASC, ASPIRIN, SINEMET, HYZAAR, GLUCOPHAGE, ZOCOR, AND FLOMAX. WE WILL CONTINUE WITH CURRENT PLAN OF CARE TODAY. WE WILL HAVE PHYSICAL THERAPY WORK WITH HIM TODAY. OTHERWISE, WE PLAN TO FOLLOW-UP WITH AM LABS AND CONTINUE TO MONITOR. TIME SPENT ON CLINICAL ASSESSMENT, REVIEWING LABS AND IMAGING, DECISION MAKING, AND DOCUMENTATION GREATER THAN 45 MINUTES. - Past Medical Family Social History Past Med/Fam/Surg Hx: No changes since H&P Allergies: Allergies No Known Allergies Allergy (Verified 10/01/22 12:09) - Review of Systems ROS: No change since H&P - Vital Signs and I&O's Vital Signs: Temperature 98.5 F Temperature 97.8 F Pulse Rate [Right Brachial] 84 Pulse Rate [Right Brachial] 88 Respiratory Rate 20 Respiratory Rate 18 Blood Pressure [Right Arm] 139/71 Blood Pressure [Left Arm] 158/71 O2 Sat by Pulse Oximetry 94 O2 Sat by Pulse Oximetry 95 Intake and Output: Intake & Output 10/01/22 10/02/22 10/03/22 10/04/22 11:59 11:59 11:59 11:59 Intake Total 1738 / 1738 1650 / 1650 Output Total 200 / 200 Balance 1538 / 1538 1650 / 1650 - Physical Exam Oriented: Normal Eyes: Normal Ear: Normal Nose: Normal Throat: Normal Respiratory: Normal Cardiovascular: Normal : Normal Auscultation: Bowel Sounds: Normal Tenderness: Normal Skin: Normal Musculoskeletal: Normal Psychiatric: Normal Mood Description: Calm Affect: Normal Speech Pattern: Clear, Appropriate - Laboratory and Diagnostics Result Diagrams: 10/03/22 04:26 10/03/22 04:26 Labs: 10/01/22 15:45 Urine,Clean Catch Urine Culture - Final Laboratory WBC 10.6 X10^3/uL (3.6-10.0) H 10/03/22 04:26 RBC 4.75 X10^6/uL (4.7-6.0) 10/03/22 04:26 Hgb 13.5 g/dL (13.5-18.0) 10/03/22 04:26 Hct 38.6 % (42.0-54.0) L 10/03/22 04:26 MCV 81.3 fL (80.0-100.0) 10/03/22 04:26 MCH 28.3 pg (27.0-34.0) 10/03/22 04:26 MCHC 34.9 g/dL (33.0-35.0) 10/03/22 04:26 RDW 14.6 % (11.6-16.5) 10/03/22 04:26 Plt Count 277 X10^3/uL (150.0-450.0) 10/03/22 04:26 MPV 8.8 fL (7.4-11.0) 10/03/22 04:26 Neut % (Auto) 74.7 % (42.0-75.0) 10/03/22 04:26 Lymph % (Auto) 12.1 % (21.0-51.0) L 10/03/22 04:26 [place] % (Auto) 7.3 % (0.0-13.0) 10/03/22 04:26 Eos % (Auto) 4.8 % (0.9-2.9) H 10/03/22 04:26 Baso % (Auto) 1.1 % (0.2-1.0) H 10/03/22 04:26 Neut # (Auto) 7.9 x10^3/uL (2.2-4.8) H 10/03/22 04:26 Lymph # (Auto) 1.3 X10^3/uL (1.3-2.9) 10/03/22 04:26 [place] # (Auto) 0.8 x10^3/uL (0.3-0.8) 10/03/22 04:26 Eos # (Auto) 0.5 x10^3/uL (0.0-0.2) H 10/03/22 04:26 Baso # (Auto) 0.1 X10^3/uL (0.0-0.1) 10/03/22 04:26 Absolute Nucleated RBC 0.0 /100WBC 10/03/22 04:26 Sodium 140 mmol/L (136-145) 10/03/22 04:26 Corrected Sodium 141 mmol/L (136-145) 10/03/22 04:26 Potassium 3.9 mmol/L (3.5-5.1) 10/03/22 04:26 Chloride 102 mmol/L (98-107) 10/03/22 04:26 Carbon Dioxide 28.8 mmol/L (21-32) 10/03/22 04:26 BUN 16 mg/dL (7-18) 10/03/22 04:26 Creatinine 0.93 mg/dL (0.70-1.30) 10/03/22 04:26 Est GFR (MDRD) Af Amer > 60 (>60) 10/03/22 04:26 Est GFR (MDRD) Non-Af > 60 (>60) 10/03/22 04:26 Glucose 148 mg/dL (65-99) H 10/03/22 04:26 POC Glucose (mg/dL) 219 mg/dL (65-99) H 10/03/22 11:25 Calcium 8.8 mg/dL (8.5-10.1) 10/03/22 04:26 Corrected Calcium TNP 10/03/22 04:26 Magnesium 1.9 mg/dL (2.0-2.9) L 10/03/22 04:26 Total Bilirubin 0.80 mg/dL (0.2-1.0) 10/03/22 04:26 AST 27 Units/L (15-37) 10/03/22 04:26 ALT 29 Units/L (12-78) 10/03/22 04:26 Alkaline Phosphatase 102 Units/L (46-116) 10/03/22 04:26 Creatine Kinase 63 Units/L (39-308) 10/01/22 12:08 Troponin I High Sens 5.3 ng/L (4.0-60.0) 10/01/22 12:08 Total Protein 6.8 g/dL (6.4-8.2) 10/03/22 04:26 Albumin 3.5 g/dL (3.4-5.0) 10/03/22 04:26 Globulin 3.3 g/dL (2.5-4.5) 10/03/22 04:26 Albumin/Globulin Ratio 1.1 Ratio (1.1-2.1) 10/03/22 04:26 Specimen Type Random urine 10/01/22 15:45 Urine Color Yellow (YELLOW) 10/01/22 15:45 Urine Appearance Clear (CLEAR) 10/01/22 15:45 Urine pH 6.0 (5.0 - 8.0) 10/01/22 15:45 Ur Specific [place] 1.015 (1.000-1.030) 10/01/22 15:45 Urine Protein Negative (NEGATIVE) 10/01/22 15:45 Urine Glucose (UA) Negative (NEGATIVE) 10/01/22 15:45 Urine Ketones Negative (NEGATIVE) 10/01/22 15:45 Urine Blood Negative (NEGATIVE) 10/01/22 15:45 Urine Nitrite Negative (NEGATIVE) 10/01/22 15:45 Urine Bilirubin Negative (NEGATIVE) 10/01/22 15:45 Urine Urobilinogen Normal (NORMAL) 10/01/22 15:45 Ur Leukocyte Esterase Negative (NEGATIVE) 10/01/22 15:45 - Plan (1) Hypomagnesemia Status: Acute Plan: NORMAL SALINE AT 80 ML/HR, THE POTASSIUM AND MAGNESIUM PROTOCOLS, OTBS ACHS, HUMULIN R SLIDING SCALE, MILK OF MAGNESIA 30ML Q12H PRN, COLACE 200MG Q12H PRN, LOVENOX 40MG SC DAILY, AND HIS HOME MEDICATIONS WERE RESUMED. HOME MEDS INCLUDE: NORVASC, ASPIRIN, SINEMET, HYZAAR, GLUCOPHAGE, ZOCOR, AND FLOMAX. (2) Hypokalemia Status: Acute (3) Generalized weakness Status: Acute (4) Unsteady gait Status: Acute (5) Frequent falls Status: Acute (6) GERD (gastroesophageal reflux disease) Status: Chronic Qualifiers: Esophagitis presence: esophagitis presence not specified Qualified Code(s): K21.9 - Gastro-esophageal reflux disease without esophagitis (7) Hyperlipidemia Status: Chronic Qualifiers: Hyperlipidemia type: mixed hyperlipidemia Qualified Code(s): E78.2 - Mixed hyperlipidemia (8) BPH (benign prostatic hyperplasia) Status: Chronic Qualifiers: Lower urinary tract symptom presence: unspecified whether lower urinary tract symptoms present Qualified Code(s): N40.0 - Benign prostatic hyperplasia without lower urinary tract symptoms (9) DM II (diabetes mellitus, type II), controlled Status: Chronic Qualifiers: Diabetes mellitus retirement insulin use: with watermelon harvesting supervisor use Diabetes mellitus complication status: with hyperglycemia Qualified Code(s): E11.65 - Type 2 diabetes mellitus with hyperglycemia; Z79.4 - senior care (current) use of insulin (10) Essential hypertension Status: Chronic
[2022-10-03] MEDS: COLACE CAP 100 MG PO PRN (20:25)
[2022-10-03] MEDS: ZOCOR TAB 40 MG PO SCH (20:26)
[2022-10-03] MEDS: FLOMAX PO SCH (20:26)
[2022-10-03] MEDS: NORVASC TAB 10 MG PO SCH (20:26)
[2022-10-03] MEDS: SNACK - Diabetic Appropriate PO SCH (20:29)
[2022-10-04] MEDS ORDERED: GLUCOPHAGE ONE ×3 (05:00→19:49)
[2022-10-04] MEDS: GLUCOPHAGE PO SCH ×3 (05:18→21:55)
[2022-10-04] MEDS: NS 1,000 ML IV 1,000 ML IV SCH ×3 (05:18→20:52)
[2022-10-04 05:29] LABS: BASOPHILS # (AUTO) 0.1 X10^3/uL (0.0-0.1); BASOPHILS % (AUTO) 1.1 % (0.2-1.0); EOSINOPHILS # (AUTO) 0.4 x10^3/uL (0.0-0.2); EOSINOPHILS % (AUTO) 4.1 % (0.9-2.9); HEMATOCRIT 37.5 % (42.0-54.0); HEMOGLOBIN 13.1 g/dL (13.5-18.0); LYMPHOCYTES # (AUTO) 1.1 X10^3/uL (1.3-2.9); LYMPHOCYTES % (AUTO) 11.6 % (21.0-51.0); MEAN CORPUSCULAR HEMOGLOBIN 28.3 pg (27.0-34.0); MEAN CORPUSCULAR HGB CONC 34.8 g/dL (33.0-35.0); MEAN CORPUSCULAR VOLUME 81.3 fL (80.0-100.0); MEAN PLATELET VOLUME 8.3 fL (7.4-11.0); MONOCYTES # (AUTO) 0.8 x10^3/uL (0.3-0.8); MONOCYTES % (AUTO) 8.5 % (0.0-13.0); NEUTROPHILS # (AUTO) 7.2 x10^3/uL (2.2-4.8); NEUTROPHILS % (AUTO) 74.7 % (42.0-75.0); PLATELET COUNT 263 X10^3/uL (150.0-450.0); RED BLOOD COUNT 4.61 X10^6/uL (4.7-6.0); RED CELL DISTRIBUTION WIDTH 14.7 % (11.6-16.5); WHITE BLOOD COUNT 9.6 X10^3/uL (3.6-10.0)
[2022-10-04 05:50] LABS: ALANINE AMINOTRANSFERASE 25 Units/L (12-78); ALBUMIN 3.3 g/dL (3.4-5.0); ALKALINE PHOSPHATASE 99 Units/L (46-116); ASPARTATE AMINO TRANSFERASE 23 Units/L (15-37); BLOOD UREA NITROGEN 16 mg/dL (7-18); CALCIUM 8.6 mg/dL (8.5-10.1); CARBON DIOXIDE 29.3 mmol/L (21-32); CHLORIDE 101 mmol/L (98-107); COR CA(FOR HYPOALB) 9.2 mg/dL (8.5-10.1); COR NA(FOR HYPERGLY) 140 mmol/L (136-145); CREATININE 0.98 mg/dL (0.70-1.30); GLUCOSE 135 mg/dL (65-99); SODIUM 139 mmol/L (136-145); TOTAL PROTEIN 6.7 g/dL (6.4-8.2); eGFR NON BLACK RACES > 60 (>60)
[2022-10-04] MEDS: SINEMET (PLAIN) 25/100 MG PO SCH ×2 (08:38→20:00)
[2022-10-04] MEDS: ASPIRIN EC 81 MG PO SCH (08:38)
[2022-10-04] MEDS: PriLOSEC PO SCH (08:38)
[2022-10-04] MEDS: HYZAAR 50/12.5 MG PO SCH (08:40)
[2022-10-04] MEDS: LOVENOX INJ 40 MG SYR SC SCH (08:40)
--- NOTE | 2022-10-04 10:25 | PCM.PROG ---
Progress Note - Progress Note for Day of Date of Exam: 10/04/22 - Subjective Subjective: IS CURRENTLY INPATIENT STATUS FOR TREATMENT OF HYPOMAGNESEMIA, HYPOKALEMIA, GENERALIZED WEAKNESS, UNSTEADY GAIT, AND FREQUENT FALLS. HE HAS A PMH OF PARKINSONS DISEASE, HYPERLIPIDEMIA, HTN, GERD, BPH, KIDNEY STONES, DM II, AND PROSTATE CANCER. TODAY, PATIENT IS ALERT AND ORIENTED, LYING IN BED ON MORNING ROUNDS. HE CONTINUES TO COMPLAIN OF WEAKNESS. STAFF REPORTS THAT HE HAS AN UNSTEADY GAIT AND REQUIRES ASSISTANCE WITH AMBULATION. ON EXAMINATION, HEART IS REGULAR IN RATE AND RHYTHM. BILATERAL LUNGS ARE NOTED WITH DIMINISHED LUNG SOUNDS THROUGHOUT. ABDOMEN IS ROUND, SOFT, AND NON-TENDER WITH NORMAL BOWEL SOUNDS NOTED IN ALL QUADRANTS. HER VITALS THIS MORNING ARE: 98.4-87-20-94%-116/67. LABS WERE OBTAINED. WBC 9.6-4.61, HGB 13.1, HCT 37.5, PLT COUNT 263, SODIUM 139, POTASSIUM 4.0, CHLORIDE 101, CARBON DIOXIDE 29.3, BUN 16, CREATININE 0.98, GLUCOSE 135, CALCIUM 8.6, AST 23, ALT 25, ALK PHOS 99, TOTAL PROTEIN 6.7, ALBUMIN 3.3. HE IS CURRENTLY RECEIVING NORMAL SALINE AT 80 ML/HR, THE POTASSIUM AND MAGNESIUM PROTOCOLS, OTBS ACHS, HUMULIN R SLIDING SCALE, MILK OF MAGNESIA 30ML Q12H PRN, COLACE 200MG Q12H PRN, LOVENOX 40MG SC DAILY, AND HIS HOME MEDICATIONS WERE RESUMED. HOME MEDS INCLUDE: NORVASC, ASPIRIN, SINEMET, HYZAAR, GLUCOPHAGE, ZOCOR, AND FLOMAX. WE WILL CONTINUE WITH CURRENT PLAN OF CARE TODAY. WE WILL HAVE PHYSICAL THERAPY WORK WITH HIM TODAY. OTHERWISE, WE PLAN TO FOLLOW-UP WITH AM LABS AND CONTINUE TO MONITOR. TIME SPENT ON CLINICAL ASSESSMENT, REVIEWING LABS AND IMAGING, DECISION MAKING, AND DOCUMENTATION GREATER THAN 45 MINUTES. - Past Medical Family Social History Past Med/Fam/Surg Hx: No changes since H&P Allergies: Allergies No Known Allergies Allergy (Verified 10/01/22 12:09) - Review of Systems ROS: No change since H&P - Vital Signs and I&O's Vital Signs: Temperature 98.4 F Temperature 97.8 F Pulse Rate [Right Brachial] 87 Pulse Rate [Right Brachial] 88 Respiratory Rate 20 Respiratory Rate 18 Blood Pressure [Right Arm] 116/67 Blood Pressure [Left Arm] 148/66 Blood Pressure [Left Arm] 148/70 O2 Sat by Pulse Oximetry 94 O2 Sat by Pulse Oximetry 95 Intake and Output: Intake & Output 10/01/22 10/02/22 10/03/22 10/04/22 11:59 11:59 11:59 11:59 Intake Total 1738 / 1738 1650 / 1650 2385 / 2385 Output Total 200 / 200 Balance 1538 / 1538 1650 / 1650 2385 / 2385 - Physical Exam Oriented: Normal Eyes: Normal Ear: Normal Nose: Normal Throat: Normal Respiratory: Normal Cardiovascular: Normal : Normal Auscultation: Bowel Sounds: Normal Palpation: Normal Tenderness: Normal Skin: Normal Musculoskeletal: Normal Psychiatric: Normal Mood Description: Calm Affect: Normal Speech Pattern: Clear, Appropriate - Laboratory and Diagnostics Result Diagrams: 10/05/22 04:46 10/05/22 04:46 Labs: 10/01/22 15:45 Urine,Clean Catch Urine Culture - Final Laboratory WBC 9.6 X10^3/uL (3.6-10.0) 10/04/22 04:53 RBC 4.61 X10^6/uL (4.7-6.0) L 10/04/22 04:53 Hgb 13.1 g/dL (13.5-18.0) L 10/04/22 04:53 Hct 37.5 % (42.0-54.0) L 10/04/22 04:53 MCV 81.3 fL (80.0-100.0) 10/04/22 04:53 MCH 28.3 pg (27.0-34.0) 10/04/22 04:53 MCHC 34.8 g/dL (33.0-35.0) 10/04/22 04:53 RDW 14.7 % (11.6-16.5) 10/04/22 04:53 Plt Count 263 X10^3/uL (150.0-450.0) 10/04/22 04:53 MPV 8.3 fL (7.4-11.0) 10/04/22 04:53 Neut % (Auto) 74.7 % (42.0-75.0) 10/04/22 04:53 Lymph % (Auto) 11.6 % (21.0-51.0) L 10/04/22 04:53 [place] % (Auto) 8.5 % (0.0-13.0) 10/04/22 04:53 Eos % (Auto) 4.1 % (0.9-2.9) H 10/04/22 04:53 Baso % (Auto) 1.1 % (0.2-1.0) H 10/04/22 04:53 Neut # (Auto) 7.2 x10^3/uL (2.2-4.8) H 10/04/22 04:53 Lymph # (Auto) 1.1 X10^3/uL (1.3-2.9) L 10/04/22 04:53 [place] # (Auto) 0.8 x10^3/uL (0.3-0.8) 10/04/22 04:53 Eos # (Auto) 0.4 x10^3/uL (0.0-0.2) H 10/04/22 04:53 Baso # (Auto) 0.1 X10^3/uL (0.0-0.1) 10/04/22 04:53 Absolute Nucleated RBC 0.0 /100WBC 10/04/22 04:53 Sodium 139 mmol/L (136-145) 10/04/22 04:53 Corrected Sodium 140 mmol/L (136-145) 10/04/22 04:53 Potassium 4.0 mmol/L (3.5-5.1) 10/04/22 04:53 Chloride 101 mmol/L (98-107) 10/04/22 04:53 Carbon Dioxide 29.3 mmol/L (21-32) 10/04/22 04:53 BUN 16 mg/dL (7-18) 10/04/22 04:53 Creatinine 0.98 mg/dL (0.70-1.30) 10/04/22 04:53 Est GFR (MDRD) Af Amer > 60 (>60) 10/04/22 04:53 Est GFR (MDRD) Non-Af > 60 (>60) 10/04/22 04:53 Glucose 135 mg/dL (65-99) H 10/04/22 04:53 POC Glucose (mg/dL) 127 mg/dL (65-99) H 10/04/22 05:33 Calcium 8.6 mg/dL (8.5-10.1) 10/04/22 04:53 Corrected Calcium 9.2 mg/dL (8.5-10.1) 10/04/22 04:53 Magnesium 1.9 mg/dL (2.0-2.9) L 10/03/22 04:26 Total Bilirubin 1.00 mg/dL (0.2-1.0) 10/04/22 04:53 AST 23 Units/L (15-37) 10/04/22 04:53 ALT 25 Units/L (12-78) 10/04/22 04:53 Alkaline Phosphatase 99 Units/L (46-116) 10/04/22 04:53 Creatine Kinase 63 Units/L (39-308) 10/01/22 12:08 Troponin I High Sens 5.3 ng/L (4.0-60.0) 10/01/22 12:08 Total Protein 6.7 g/dL (6.4-8.2) 10/04/22 04:53 Albumin 3.3 g/dL (3.4-5.0) L 10/04/22 04:53 Globulin 3.4 g/dL (2.5-4.5) 10/04/22 04:53 Albumin/Globulin Ratio 1.0 Ratio (1.1-2.1) L 10/04/22 04:53 Specimen Type Random urine 10/01/22 15:45 Urine Color Yellow (YELLOW) 10/01/22 15:45 Urine Appearance Clear (CLEAR) 10/01/22 15:45 Urine pH 6.0 (5.0 - 8.0) 10/01/22 15:45 Ur Specific [place] 1.015 (1.000-1.030) 10/01/22 15:45 Urine Protein Negative (NEGATIVE) 10/01/22 15:45 Urine Glucose (UA) Negative (NEGATIVE) 10/01/22 15:45 Urine Ketones Negative (NEGATIVE) 10/01/22 15:45 Urine Blood Negative (NEGATIVE) 10/01/22 15:45 Urine Nitrite Negative (NEGATIVE) 10/01/22 15:45 Urine Bilirubin Negative (NEGATIVE) 10/01/22 15:45 Urine Urobilinogen Normal (NORMAL) 10/01/22 15:45 Ur Leukocyte Esterase Negative (NEGATIVE) 10/01/22 15:45 - Plan (1) Hypomagnesemia Status: Acute Plan: NORMAL SALINE AT 80 ML/HR, THE POTASSIUM AND MAGNESIUM PROTOCOLS, OTBS ACHS, HUMULIN R SLIDING SCALE, MILK OF MAGNESIA 30ML Q12H PRN, COLACE 200MG Q12H PRN, LOVENOX 40MG SC DAILY, AND HIS HOME MEDICATIONS WERE RESUMED. HOME MEDS INCLUDE: NORVASC, ASPIRIN, SINEMET, HYZAAR, GLUCOPHAGE, ZOCOR, AND FLOMAX. (2) Hypokalemia Status: Acute (3) Generalized weakness Status: Acute (4) Unsteady gait Status: Acute (5) Frequent falls Status: Acute (6) GERD (gastroesophageal reflux disease) Status: Chronic Qualifiers: Esophagitis presence: esophagitis presence not specified Qualified Code(s): K21.9 - Gastro-esophageal reflux disease without esophagitis (7) Hyperlipidemia Status: Chronic Qualifiers: Hyperlipidemia type: mixed hyperlipidemia Qualified Code(s): E78.2 - Mixed hyperlipidemia (8) BPH (benign prostatic hyperplasia) Status: Chronic Qualifiers: Lower urinary tract symptom presence: unspecified whether lower urinary tract symptoms present Qualified Code(s): N40.0 - Benign prostatic hyperplasia without lower urinary tract symptoms (9) DM II (diabetes mellitus, type II), controlled Status: Chronic Qualifiers: Diabetes mellitus snf insulin use: with marine oil terminal superintendent use Diabetes mellitus complication status: with hyperglycemia Qualified Code(s): E11.65 - Type 2 diabetes mellitus with hyperglycemia; Z79.4 - USP (current) use of insulin (10) Essential hypertension Status: Chronic
[2022-10-04] MEDS: NovoLIN R (or HumuLIN R) SUBCUT PRN (17:01)
[2022-10-04] MEDS: NORVASC TAB 10 MG PO SCH (20:00)
[2022-10-04] MEDS: FLOMAX PO SCH (20:00)
[2022-10-04] MEDS: ZOCOR TAB 40 MG PO SCH (20:00)
[2022-10-04] MEDS: SNACK - Diabetic Appropriate PO SCH (20:52)
[2022-10-05] MEDS ORDERED: GLUCOPHAGE ONE ×2 (05:11→13:41)
[2022-10-05 05:24] LABS: BASOPHILS # (AUTO) 0.1 X10^3/uL (0.0-0.1); BASOPHILS % (AUTO) 1.5 % (0.2-1.0); EOSINOPHILS # (AUTO) 0.4 x10^3/uL (0.0-0.2); EOSINOPHILS % (AUTO) 4.8 % (0.9-2.9); HEMATOCRIT 38.3 % (42.0-54.0); HEMOGLOBIN 13.4 g/dL (13.5-18.0); LYMPHOCYTES # (AUTO) 1.3 X10^3/uL (1.3-2.9); LYMPHOCYTES % (AUTO) 16.7 % (21.0-51.0); MEAN CORPUSCULAR HEMOGLOBIN 28.3 pg (27.0-34.0); MEAN CORPUSCULAR HGB CONC 34.9 g/dL (33.0-35.0); MEAN CORPUSCULAR VOLUME 81.1 fL (80.0-100.0); MEAN PLATELET VOLUME 8.4 fL (7.4-11.0); MONOCYTES # (AUTO) 0.7 x10^3/uL (0.3-0.8); NEUTROPHILS # (AUTO) 5.3 x10^3/uL (2.2-4.8); PLATELET COUNT 278 X10^3/uL (150.0-450.0); RED BLOOD COUNT 4.72 X10^6/uL (4.7-6.0); RED CELL DISTRIBUTION WIDTH 14.6 % (11.6-16.5); WHITE BLOOD COUNT 7.8 X10^3/uL (3.6-10.0)
[2022-10-05] MEDS: GLUCOPHAGE PO SCH ×2 (05:37→13:55)
[2022-10-05 05:41] LABS: ALANINE AMINOTRANSFERASE 19 Units/L (12-78); ALBUMIN 3.3 g/dL (3.4-5.0); ALKALINE PHOSPHATASE 97 Units/L (46-116); ASPARTATE AMINO TRANSFERASE 21 Units/L (15-37); BLOOD UREA NITROGEN 15 mg/dL (7-18); CALCIUM 8.8 mg/dL (8.5-10.1); CARBON DIOXIDE 28.3 mmol/L (21-32); CHLORIDE 103 mmol/L (98-107); COR CA(FOR HYPOALB) 9.4 mg/dL (8.5-10.1); COR NA(FOR HYPERGLY) 140 mmol/L (136-145); CREATININE 0.87 mg/dL (0.70-1.30); GLUCOSE 156 mg/dL (65-99); SODIUM 139 mmol/L (136-145); TOTAL PROTEIN 6.8 g/dL (6.4-8.2); eGFR NON BLACK RACES > 60 (>60)
[2022-10-05] MEDS: NS 1,000 ML IV 1,000 ML IV SCH ×2 (06:02→07:31)
[2022-10-05] MEDS: ASPIRIN EC 81 MG PO SCH (09:13)
[2022-10-05] MEDS: LOVENOX INJ 40 MG SYR SC SCH (09:13)
[2022-10-05] MEDS: PriLOSEC PO SCH (09:13)
[2022-10-05] MEDS: HYZAAR 50/12.5 MG PO SCH (09:14)
[2022-10-05] MEDS: SINEMET (PLAIN) 25/100 MG PO SCH (09:14)
[2022-10-05 14:24] VITALS: BP 139/63; PULSE 77; TEMP 98.1; O2SAT 94
== END 2022-10-05 14:40 | disposition home health service (06) | DRG 641 ==
LOC: MED/SURG → OBSVTOIN 11:14
PROVIDERS: ADMIT Internal Medicine; ATTEND Internal Medicine
DX: G20 Parkinson's disease; E83.42 Hypomagnesemia; I10 Essential (primary) hypertension; Z85.46 Personal history of malignant neoplasm of prostate; E11.65 Type 2 diabetes mellitus with hyperglycemia; Z79.4 Long term (current) use of insulin; R06.02 Shortness of breath; R29.6 Repeated falls; E87.6 Hypokalemia; R53.1 Weakness; E78.2 Mixed hyperlipidemia; R26.81 Unsteadiness on feet; N40.0 Benign prostatic hyperplasia without lower urinary tract symptoms

== ENCOUNTER 2022-12-12 10:41 | Observation (INO) ==
[2022-12-12 10:54] VITALS: BMI 25.7
--- NOTE | 2022-12-12 11:14 | DR.GENAD ---
HPI Time Seen Time Seen by Provider: 12/12/22 11:13 PCP Primary Care Physician: Dr. Godinez HPI Comment HPI Comment: Patient is 82yr old male in er with generalized weakness and frequent falls since discharge from hospital 2 months ago. He is complaining of intermittent dizziness and chills. He fell 5 times yesterday not hit his head. He is hurting in sacral area and left elbow. Complaint/Symptoms Chief Complaint Doctors Comments: Generalized weakness, dizziness and frequent fall. Chief Complaint:: Pt states that since being discharged from the hospital 2 months ago despite working with home therapy he has had progressively worsening generalized weakness with frequent falls. Pt states that yesterday he fell 5 times. Pt's only complaint from falls yesterday is pain in the left elbow and sacrum. Denies hitting his head. Pt has also had intermittent dizziness and chills. COVID-19 Coronavirus risk:travel/contact w/high risk person: No Has patient experienced Coronavirus symptoms: No Source History Provided: Patient Mode of Arrival Mode of Arrival: Wheelchair Timing Onset of Chief Complaint: 12/12/22 PMH PMH Past Medical History: Yes Past Medical History: Diabetes, GERD and Hypertension Past Medical History Comment: parkinsons, prostate cancer Past Surgical History: Yes Surgical History: Other Past Surgical History Comment: Prostatectomy Family History History of Family Medical Conditions: Yes Family Medical History: Diabetes Mellitus Social History Does patient currently use any type of tobacco product: No Have you used tobacco products in the last 12 months: No Type of Tobacco Use: None Does any household member use tobacco: No Alcohol Use: Rarely Do you use any recreational Drugs:: No Lives With: Spouse Lives Where: Home Travel Risk Coronavirus risk:travel/contact w/high risk person: No Has patient experienced Coronavirus symptoms: No Infectious screening In the last 2 months have you had wt loss of >10#?: NO Have you had fever, night sweats or hemotysis?: No Have you traveled outside the country in the last 6 months?: No Isolation: Standard ROS Review of Systems Constitutional: Weakness and Fatigue; negative Fever Eyes: No Symptoms Reported ENTM: No Symptoms Reported Respiratoy: No Symptoms Reported Cardiovascular: No Symptoms Reported Gastrointestinal/Abdominal: No Symptoms Reported Genitourinary: No Symptoms Reported Neurological: Weakness and Dizziness Musculoskeletal: Back Pain (SACRAL PAIN.), Muscle Pain and Elbow (LEFT ELBOW PAIN.) Integumentary: No Symptoms Reported Hematologic/Lymphatic: No Symptoms Reported Endocrine: No Symptoms Reported; negative Increased Thirst or Increased Urine Psychiatric: No Symptoms Reported All Other Systems: Reviewed and Negative PE Vital Signs Vitals: Vital Signs Temperature 98.0 F Pulse Rate 80 Pulse Rate 83 Pulse Rate 89 Pulse Rate 83 Pulse Rate 84 Pulse Rate 85 Pulse Rate 84 Pulse Rate 90 Pulse Rate 91 Pulse Rate 94 Pulse Rate 102 Respiratory Rate 23 Respiratory Rate 22 Respiratory Rate 23 Respiratory Rate 23 Respiratory Rate 22 Respiratory Rate 25 Respiratory Rate 22 Respiratory Rate 25 Respiratory Rate 25 Respiratory Rate 22 Blood Pressure 131/68 Blood Pressure 133/63 Blood Pressure 127/67 Blood Pressure 116/59 Blood Pressure 101/57 O2 Sat by Pulse Oximetry 97 O2 Sat by Pulse Oximetry 96 O2 Sat by Pulse Oximetry 97 O2 Sat by Pulse Oximetry 95 O2 Sat by Pulse Oximetry 96 O2 Sat by Pulse Oximetry 94 O2 Sat by Pulse Oximetry 95 O2 Sat by Pulse Oximetry 94 O2 Sat by Pulse Oximetry 95 O2 Sat by Pulse Oximetry 97 O2 Sat by Pulse Oximetry 95 General Limitations: No Limitations General Appearance: Alert and In No Apparent Distress Head Head Exam: Normal Inspection and Atraumatic Eyes Eye exam: Normal Appearance ENT ENT Exam: Normal Exam, Normal Oropharynx, Normal External Ear Exam and TM's Normal Bilaterally External Ear Exam: Normal External Inspection; negative Mastoid Tenderness TM/Canal Exam: Bilateral: Normal Nose Exam: Normal Nose Exam Mouth Exam: Normal Inspection Throat Exam: Normal Inspection; negative Tonsillar Erythema, Tonsillomegaly or Tonsillar Exudate Neck Neck Exam: Normal Inspection; negative Trachea Midline or Tenderness Chest Chest Inspection: Normal Inspection and Symmetric Chest Wall Rise; negative Tenderness Respiratory Respiratory Exam: Normal Lung Sounds Bilat; negative Accessory Muscle Use, Chest Wall Tenderness or Respiratory Distress Respiratory Exam: Bilateral: Rhonchi Cardiovascular Cardiovascular Exam: Regular Rate, Normal Rhythm and Normal Heart Sounds; negative Systolic Murmur or Diastolic Murmur Abdominal Exam Abdominal Exam: Normal Inspection, Normal Bowel Sounds and Soft; negative Tenderness Extremities Extremities Exam: Normal Inspection and Tenderness (Left elbow tenderness.) Back Back Exam: Paraspinal Tenderness (LOWER BACK TENDERNESS.) Neurologic Neurological Exam: Alert; negative Motor Sensory Deficit Psychiatric Psychiatric Exam: Normal Affect and Normal Mood Skin Skin Exam: Intact MDM Additional Information Additional Information Obtained From: Family Differential Diagnosis Differential Diagnosis: Generalized weakness, frequent falls, uti, pneumonia, m i, back pain and lt COURSE Treatment Treatment: See orders done while patient was in er. Labs, EKG, Xray, CT and EKG reports discussed with patient and family. Dr. Tillman will admit patient to hospital for further management. Consultation Consultation Comments: DISCUSSED PATIENT WITH DR. TILLMAN. HE WILL ADMIT PATIENT. Education/Counseling Education/Counseling: Patient and Family Educated On: Diagnosis ROR Labs Reviewed Laboratory Results Reviewed?: Yes 12/15/22 05:11 12/15/22 05:11 Laboratory: WBC 8.6 X10^3/uL (3.6-10.0) 12/12/22 11:47 RBC 4.76 X10^6/uL (4.7-6.0) 12/12/22 11:47 Hgb 13.4 g/dL (13.5-18.0) L 12/12/22 11:47 Hct 39.1 % (42.0-54.0) L 12/12/22 11:47 MCV 82.0 fL (80.0-100.0) 12/12/22 11:47 MCH 28.2 pg (27.0-34.0) 12/12/22 11:47 MCHC 34.4 g/dL (33.0-35.0) 12/12/22 11:47 RDW 14.9 % (11.6-16.5) 12/12/22 11:47 Plt Count 186 X10^3/uL (150.0-450.0) 12/12/22 11:47 MPV 8.5 fL (7.4-11.0) 12/12/22 11:47 Neut % (Auto) 88.3 % (42.0-75.0) H 12/12/22 11:47 Lymph % (Auto) 3.5 % (21.0-51.0) L 12/12/22 11:47 [place] % (Auto) 6.0 % (0.0-13.0) 12/12/22 11:47 Eos % (Auto) 1.6 % (0.9-2.9) 12/12/22 11:47 Baso % (Auto) 0.6 % (0.2-1.0) 12/12/22 11:47 Neut # (Auto) 7.6 x10^3/uL (2.2-4.8) H 12/12/22 11:47 Lymph # (Auto) 0.3 X10^3/uL (1.3-2.9) L 12/12/22 11:47 [place] # (Auto) 0.5 x10^3/uL (0.3-0.8) 12/12/22 11:47 Eos # (Auto) 0.1 x10^3/uL (0.0-0.2) 12/12/22 11:47 Baso # (Auto) 0.1 X10^3/uL (0.0-0.1) 12/12/22 11:47 Absolute Nucleated RBC 0.1 /100WBC 12/12/22 11:47 Sodium 135 mmol/L (136-145) L 12/12/22 11:47 Corrected Sodium 139 mmol/L (136-145) 12/12/22 11:47 Potassium 3.4 mmol/L (3.5-5.1) L 12/12/22 11:47 Chloride 97 mmol/L (98-107) L 12/12/22 11:47 Carbon Dioxide 27.0 mmol/L (21-32) 12/12/22 11:47 BUN 22 mg/dL (7-18) H 12/12/22 11:47 Creatinine 1.54 mg/dL (0.70-1.30) H 12/12/22 11:47 Est GFR (MDRD) Af Amer 56 (>60) L 12/12/22 11:47 Est GFR (MDRD) Non-Af 46 (>60) L 12/12/22 11:47 Glucose 260 mg/dL (65-99) H 12/12/22 11:47 Calcium 8.8 mg/dL (8.5-10.1) 12/12/22 11:47 Corrected Calcium TNP 12/12/22 11:47 Magnesium 1.9 mg/dL (2.0-2.9) L 12/12/22 11:47 Total Bilirubin 3.50 mg/dL (0.2-1.0) H 12/12/22 11:47 AST 247 Units/L (15-37) H 12/12/22 11:47 ALT 145 Units/L (12-78) H 12/12/22 11:47 Alkaline Phosphatase 231 Units/L (46-116) H 12/12/22 11:47 Ammonia 10 umol/L (11-32) L 12/12/22 14:45 Troponin I High Sens 6.9 ng/L (4.0-60.0) 12/12/22 11:47 Total Protein 6.6 g/dL (6.4-8.2) 12/12/22 11:47 Albumin 3.5 g/dL (3.4-5.0) 12/12/22 11:47 Globulin 3.1 g/dL (2.5-4.5) 12/12/22 11:47 Albumin/Globulin Ratio 1.1 Ratio (1.1-2.1) 12/12/22 11:47 Thiamine 133 nmol/L (70-180) 12/12/22 14:54 Vitamin B12 965 pg/mL (193-986) 12/12/22 14:45 Folate 13.5 ng/mL (>8.6) 12/12/22 14:45 Specimen Type Clean catch urine 12/12/22 13:33 Urine Color [place] (YELLOW) 12/12/22 13:33 Urine Appearance Clear (CLEAR) 12/12/22 13:33 Urine pH 5.0 (5.0 - 8.0) 12/12/22 13:33 Ur Specific [place] 1.015 (1.000-1.030) 12/12/22 13:33 Urine Protein 1+ (NEGATIVE) 12/12/22 13:33 Urine Glucose (UA) Negative (NEGATIVE) 12/12/22 13:33 Urine Ketones Negative (NEGATIVE) 12/12/22 13:33 Urine Blood 1+ (NEGATIVE) 12/12/22 13:33 Urine Nitrite Negative (NEGATIVE) 12/12/22 13:33 Urine Bilirubin 1+ (NEGATIVE) 12/12/22 13:33 Urine Urobilinogen 2+ (NORMAL) 12/12/22 13:33 Ur Leukocyte Esterase Negative (NEGATIVE) 12/12/22 13:33 Urine RBC None seen /HPF (0-3) 12/12/22 13:33 Urine WBC 0-2 /HPF (0-5) 12/12/22 13:33 Ur Squamous Epith Cells Rare /HPF (NEGATIVE) 12/12/22 13:33 Amorphous Sediment Trace /HPF (NEGATIVE) 12/12/22 13:33 Urine Bacteria Trace /HPF (NEGATIVE) 12/12/22 13:33 Hyaline Casts Rare /LPF (NEGATIVE) 12/12/22 13:33 Urine Mucus Rare /HPF (NEGATIVE) 12/12/22 13:33 Ur Culture Indicated? No/not indicated 12/12/22 13:33 XRAY XRAY Interpreted by: Radiologist (Report noted.) and Self EKG Rate: 84 [place]: Normal Rhythm: NSR Block: None Hypertrophy: None ST: Infarct (SEPTAL AGE UNDETERMINED.) Opioid Opioid Risk Tool Age (Fly box if 16-45): No History of Preadolescent Sexual Abuse: No Total: 0 Total Score Risk Category: Low Risk Copyright: Blade STEWART predicting aberrant behaviors Discharge Plan Diagnosis Discharge Problem: Generalized weakness, Frequent falls, Elevated transaminase level, Dehydration Discharge Plan Patient Disposition: ADMITTED INPATIENT Condition: Stable
[2022-12-12] MEDS ORDERED: NS 1,000 ML IV 1,000 ML ONE (11:38)
[2022-12-12] MEDS: NS 1,000 ML IV 1,000 ML IV SCH ×3 (11:49→19:43)
--- NOTE | 2022-12-12 11:51 | EKG ---
Test Reason : HYPOTENSION Blood Pressure : */* mmHG Vent. Rate : 84 BPM Atrial Rate : 84 BPM P-R Int : 204 ms QRS Dur : 80 ms QT Int : 362 ms P-R-T Axes : 10 10 45 degrees QTc Int : 427 ms Normal sinus rhythm Septal infarct , age undetermined Abnormal ECG When compared with ECG of 01-OCT-2022 12:02, Septal infarct is now present Criteria for Inferior infarct are no longer present Nonspecific T wave abnormality no longer evident in Inferior leads Confirmed by Arnold Iraheta ([id number]) on 12/14/2022 7:24:08 AM Referred By: Confirmed By: Arnold Iraheta
[2022-12-12 12:04] LABS: BASOPHILS # (AUTO) 0.1 X10^3/uL (0.0-0.1); BASOPHILS % (AUTO) 0.6 % (0.2-1.0); EOSINOPHILS # (AUTO) 0.1 x10^3/uL (0.0-0.2); EOSINOPHILS % (AUTO) 1.6 % (0.9-2.9); HEMATOCRIT 39.1 % (42.0-54.0); HEMOGLOBIN 13.4 g/dL (13.5-18.0); LYMPHOCYTES # (AUTO) 0.3 X10^3/uL (1.3-2.9); LYMPHOCYTES % (AUTO) 3.5 % (21.0-51.0); MEAN CORPUSCULAR HEMOGLOBIN 28.2 pg (27.0-34.0); MEAN CORPUSCULAR HGB CONC 34.4 g/dL (33.0-35.0); MEAN PLATELET VOLUME 8.5 fL (7.4-11.0); MONOCYTES # (AUTO) 0.5 x10^3/uL (0.3-0.8); NEUTROPHILS # (AUTO) 7.6 x10^3/uL (2.2-4.8); NEUTROPHILS % (AUTO) 88.3 % (42.0-75.0); PLATELET COUNT 186 X10^3/uL (150.0-450.0); RED BLOOD COUNT 4.76 X10^6/uL (4.7-6.0); RED CELL DISTRIBUTION WIDTH 14.9 % (11.6-16.5); WHITE BLOOD COUNT 8.6 X10^3/uL (3.6-10.0)
[2022-12-12 12:19] LABS: ALANINE AMINOTRANSFERASE 145 Units/L (12-78); ALBUMIN 3.5 g/dL (3.4-5.0); ALKALINE PHOSPHATASE 231 Units/L (46-116); ASPARTATE AMINO TRANSFERASE 247 Units/L (15-37); BLOOD UREA NITROGEN 22 mg/dL (7-18); CALCIUM 8.8 mg/dL (8.5-10.1); CHLORIDE 97 mmol/L (98-107); COR NA(FOR HYPERGLY) 139 mmol/L (136-145); CREATININE 1.54 mg/dL (0.70-1.30); GLUCOSE 260 mg/dL (65-99); POTASSIUM 3.4 mmol/L (3.5-5.1); SODIUM 135 mmol/L (136-145); TOTAL PROTEIN 6.6 g/dL (6.4-8.2); eGFR NON BLACK RACES 46 (>60)
[2022-12-12 13:50] LABS: BILIRUBIN,URINE 1+ (NEGATIVE); BLOOD/HEMOGLOBIN,URINE 1+ (NEGATIVE); GLUCOSE, URINE NEGATIVE (NEGATIVE); KETONES,URINE NEGATIVE (NEGATIVE); LEUKOCYTE ESTERASE ,URINE NEGATIVE (NEGATIVE); NITRITES,URINE NEGATIVE (NEGATIVE); PROTEIN,URINE 1+ (NEGATIVE); UROBILINOGEN,URINE 2+ (NORMAL)
[2022-12-12 13:59] LABS: COLOR,URINE ORANGE (YELLOW)
[2022-12-12 14:00] LABS: APPEARANCE,URINE CLEAR (CLEAR)
[2022-12-12 14:01] LABS: BACTERIA,URINE TRACE /HPF (NEGATIVE); HYALINE CASTS, URINE RARE /LPF (NEGATIVE); RBC,URINE NONE SEEN /HPF (0-3); SQUAMOUS EPITHELIAL CELL,UR RARE /HPF (NEGATIVE)
[2022-12-12] MEDS ORDERED: NS 1,000 ML IV 1,000 ML with MAGNESIUM SULFATE 50% INJ VIAL 1 G, MVI INJ (ADULT) 10 ML IV SCH ×3 (14:30)
[2022-12-12] MEDS ORDERED: PATIENT'S HOME MEDICATION (Losartan-Hydrochlorothiazide 100-25 mg tablet) PO SCH (14:45)
--- NOTE | 2022-12-12 15:57 | CT ---
EXAM: CT ABDOMEN WITHOUT INTRAVENOUS CONTRASTHISTORY: Elevated transaminases. Abdominal distention.TECHNIQUE: Spiral axial CT images are obtained through the abdomen without the administration of intravenous contrast. Additional coronal and sagittal reformatted images are reconstructed.DOSIMETRY: Total DLP 215.62 mGycm; CTDI 5.68 mGyCOMPARISON: None available.FINDINGS:GENITOURINARY SYSTEM: There are multiple scattered bilateral renal cysts; largest projecting from the left lower pole kidney measuring approximately 5.1 cm; the largest on the right seen in the anterior middle pole measuring 3.3 cm. There are multiple tiny nonobstructing bilateral renal calculi, left greater than right. The kidneys are otherwise unremarkable. There is no ureteral calculus or stigmata of obstructive uropathy. The urinary bladder is grossly unremarkable for a non-dedicated exam.GASTROINTESTINAL TRACT: There is no evidence for bowel herniation, bowel obstruction, colitis or diverticulitis seen in the visualized bowel loops. A normal-appearing appendix is seen.CT ABDOMEN: Severe aortoiliac atherosclerotic disease, without aneurysm formation. The liver, spleen, pancreas, adrenal glands, gallbladder, and inferior vena cava are within normal limits for a noncontrast CT scan. There is no intra-abdominal or retroperitoneal lymphadenopathy, free fluid, or free air seen. No abdominal herniation is noted. Moderate to severe multilevel DDD is seen in the middle and distal thoracic spine and upper lumbar spine.CT PELVIS: CT pelvis is not excluded with this exam.LUNG BASES: The lung bases are clear. There is severe coronary atherosclerosis.IMPRESSION:1. No gross acute abnormality seen.2. No evidence for renal stone disease or obstructive uropathy.3. Multiple scattered bilateral renal cysts; largest projecting from the left lower pole kidney measuring approximately 5.1 cm; the largest on the right seen in the anterior middle pole measuring 3.3 cm.4. Multiple tiny nonobstructing bilateral renal calculi, left greater than right.5. No evidence for acute appendicitis, bowel herniation/obstruction, colitis or diverticulitis seen.6. No free fluid, free air, mass lesions, or lymphadenopathy seen.7. The liver appears grossly unremarkable for a noncontrast CT scan.Electronically signed by: Ann Winchester (Dec 12, 2022 15:56:17)
[2022-12-12] MEDS ORDERED: NovoLIN R (or HumuLIN R) SC PRN (17:05)
[2022-12-12] MEDS: ACTOS PO SCH (17:24)
[2022-12-12] MEDS: HYZAAR 50/12.5 MG PO SCH (17:24)
[2022-12-12] MEDS ORDERED: ZOCOR TAB 40 MG PO SCH (21:00)
[2022-12-12] MEDS ORDERED: GLUCOPHAGE XR 24-HR PO SCH (21:00)
[2022-12-12] MEDS ORDERED: GLUCOPHAGE ONE (21:01)
[2022-12-12] MEDS: NORVASC TAB 10 MG PO SCH (21:03)
[2022-12-12] MEDS: SNACK - Diabetic Appropriate PO SCH (21:04)
[2022-12-12] MEDS: GLUCOPHAGE PO SCH (21:04)
[2022-12-12] MEDS: PriLOSEC PO SCH (21:04)
[2022-12-12] MEDS: SINEMET (PLAIN) 25/100 MG PO SCH (21:04)
[2022-12-12] MEDS: NovoLIN R (or HumuLIN R) SUBCUT PRN (21:09)
--- NOTE | 2022-12-12 21:24 | RAD ---
HISTORYsob generalized weaknessSTUDYCHEST, 1 [id number]/01/2023 aFINDINGSThe trachea is midline. The cardiac silhouette is unremarkable. The thoracic aorta is atherosclerotic and mildly tortuous. There is mild elevation of the right hemidiaphragm. The lungs are clear without focal infiltrate or effusion. The bony thorax is unremarkable.IMPRESSIONNo acute cardiopulmonary findings .Electronically signed by: Yakov Salazar (Dec 12, 2022 21:23:04)
[2022-12-12] MEDS: ULTRAM PO PRN (21:41)
[2022-12-12] MEDS ORDERED: CONSULT PHARMACY - POTASSIUM & MAGNESIUM XX SCH (22:00)
[2022-12-12] MEDS ORDERED: K-DUR TAB 20 MEQ PO SCH (23:00)
[2022-12-12] MEDS: MAG-OX TAB PO SCH (23:19)
[2022-12-13] MEDS: MAG-OX TAB PO SCH ×3 (00:14→20:12)
[2022-12-13] MEDS: NS 1,000 ML IV 1,000 ML IV SCH (03:30)
[2022-12-13] MEDS ORDERED: GLUCOPHAGE ONE ×3 (04:56→19:56)
[2022-12-13] MEDS: GLUCOPHAGE PO SCH ×3 (05:44→21:17)
[2022-12-13] MEDS: ULTRAM PO PRN ×2 (06:00→18:59)
[2022-12-13] MEDS: NovoLIN R (or HumuLIN R) SUBCUT PRN ×3 (06:03→20:27)
[2022-12-13 06:10] LABS: BASOPHILS # (AUTO) 0.1 X10^3/uL (0.0-0.1); BASOPHILS % (AUTO) 0.7 % (0.2-1.0); EOSINOPHILS # (AUTO) 0.2 x10^3/uL (0.0-0.2); EOSINOPHILS % (AUTO) 2.4 % (0.9-2.9); HEMATOCRIT 37.8 % (42.0-54.0); HEMOGLOBIN 12.9 g/dL (13.5-18.0); LYMPHOCYTES # (AUTO) 0.4 X10^3/uL (1.3-2.9); LYMPHOCYTES % (AUTO) 5.2 % (21.0-51.0); MEAN CORPUSCULAR HEMOGLOBIN 28.1 pg (27.0-34.0); MEAN CORPUSCULAR HGB CONC 34.1 g/dL (33.0-35.0); MEAN CORPUSCULAR VOLUME 82.4 fL (80.0-100.0); MONOCYTES # (AUTO) 0.8 x10^3/uL (0.3-0.8); NEUTROPHILS # (AUTO) 6.7 x10^3/uL (2.2-4.8); NEUTROPHILS % (AUTO) 81.7 % (42.0-75.0); PLATELET COUNT 175 X10^3/uL (150.0-450.0); RED BLOOD COUNT 4.59 X10^6/uL (4.7-6.0); RED CELL DISTRIBUTION WIDTH 14.8 % (11.6-16.5); WHITE BLOOD COUNT 8.2 X10^3/uL (3.6-10.0)
[2022-12-13 06:27] LABS: ALANINE AMINOTRANSFERASE 121 Units/L (12-78); ALBUMIN 3.1 g/dL (3.4-5.0); ALKALINE PHOSPHATASE 259 Units/L (46-116); ASPARTATE AMINO TRANSFERASE 171 Units/L (15-37); BLOOD UREA NITROGEN 15 mg/dL (7-18); CARBON DIOXIDE 27.3 mmol/L (21-32); CHLORIDE 97 mmol/L (98-107); COR CA(FOR HYPOALB) 8.7 mg/dL (8.5-10.1); COR NA(FOR HYPERGLY) 136 mmol/L (136-145); CREATININE 1.12 mg/dL (0.70-1.30); GLUCOSE 242 mg/dL (65-99); POTASSIUM 3.4 mmol/L (3.5-5.1); SODIUM 133 mmol/L (136-145); TOTAL PROTEIN 6.3 g/dL (6.4-8.2); eGFR NON BLACK RACES > 60 (>60)
[2022-12-13] MEDS ORDERED: CONSULT PHARMACY - POTASSIUM & MAGNESIUM XX SCH (08:00)
[2022-12-13] MEDS ORDERED: K-DUR TAB 20 MEQ PO ONE (09:00)
[2022-12-13] MEDS: NS + KCL 20 MEQ/L 1,000 ML IV SCH ×3 (09:52→18:28)
[2022-12-13] MEDS: ACTOS PO SCH (09:53)
[2022-12-13] MEDS: HYZAAR 50/12.5 MG PO SCH (09:53)
[2022-12-13] MEDS: SINEMET (PLAIN) 25/100 MG PO SCH ×2 (09:53→20:13)
[2022-12-13] MEDS: ASPIRIN EC 81 MG PO SCH (09:53)
[2022-12-13] MEDS: FLOMAX PO SCH (14:10)
[2022-12-13] MEDS: NORVASC TAB 10 MG PO SCH (20:08)
[2022-12-13] MEDS: SNACK - Diabetic Appropriate PO SCH (20:08)
[2022-12-13] MEDS: PriLOSEC PO SCH (20:08)
[2022-12-14] MEDS: NS + KCL 20 MEQ/L 1,000 ML IV SCH ×3 (01:49→18:50)
[2022-12-14] MEDS ORDERED: GLUCOPHAGE ONE ×3 (05:13→20:14)
[2022-12-14] MEDS: GLUCOPHAGE PO SCH ×3 (05:30→21:02)
[2022-12-14 06:09] LABS: BASOPHILS # (AUTO) 0.1 X10^3/uL (0.0-0.1); BASOPHILS % (AUTO) 1.1 % (0.2-1.0); EOSINOPHILS # (AUTO) 0.3 x10^3/uL (0.0-0.2); EOSINOPHILS % (AUTO) 4.8 % (0.9-2.9); HEMATOCRIT 35.5 % (42.0-54.0); HEMOGLOBIN 12.3 g/dL (13.5-18.0); LYMPHOCYTES # (AUTO) 0.6 X10^3/uL (1.3-2.9); LYMPHOCYTES % (AUTO) 8.2 % (21.0-51.0); MEAN CORPUSCULAR HEMOGLOBIN 28.3 pg (27.0-34.0); MEAN CORPUSCULAR HGB CONC 34.7 g/dL (33.0-35.0); MEAN CORPUSCULAR VOLUME 81.6 fL (80.0-100.0); MEAN PLATELET VOLUME 8.7 fL (7.4-11.0); MONOCYTES % (AUTO) 14.8 % (0.0-13.0); NEUTROPHILS # (AUTO) 4.9 x10^3/uL (2.2-4.8); NEUTROPHILS % (AUTO) 71.1 % (42.0-75.0); PLATELET COUNT 167 X10^3/uL (150.0-450.0); RED BLOOD COUNT 4.35 X10^6/uL (4.7-6.0); RED CELL DISTRIBUTION WIDTH 15.2 % (11.6-16.5); WHITE BLOOD COUNT 6.9 X10^3/uL (3.6-10.0)
[2022-12-14 06:26] LABS: ALANINE AMINOTRANSFERASE 111 Units/L (12-78); ALBUMIN 2.8 g/dL (3.4-5.0); ALKALINE PHOSPHATASE 236 Units/L (46-116); ASPARTATE AMINO TRANSFERASE 77 Units/L (15-37); BLOOD UREA NITROGEN 14 mg/dL (7-18); CALCIUM 8.3 mg/dL (8.5-10.1); CARBON DIOXIDE 28.1 mmol/L (21-32); CHLORIDE 100 mmol/L (98-107); COR CA(FOR HYPOALB) 9.3 mg/dL (8.5-10.1); COR NA(FOR HYPERGLY) 136 mmol/L (136-145); CREATININE 1.04 mg/dL (0.70-1.30); GLUCOSE 147 mg/dL (65-99); POTASSIUM 3.9 mmol/L (3.5-5.1); SODIUM 135 mmol/L (136-145); eGFR NON BLACK RACES > 60 (>60)
[2022-12-14] MEDS: FLOMAX PO SCH (09:42)
[2022-12-14] MEDS: ACTOS PO SCH (09:42)
[2022-12-14] MEDS: HYZAAR 50/12.5 MG PO SCH (09:43)
[2022-12-14] MEDS: MAG-OX TAB PO SCH ×2 (09:43→21:04)
[2022-12-14] MEDS: ASPIRIN EC 81 MG PO SCH (09:43)
[2022-12-14] MEDS: SINEMET (PLAIN) 25/100 MG PO SCH ×2 (09:43→21:03)
[2022-12-14] MEDS: LOVENOX INJ 40 MG SYR SC SCH (09:44)
[2022-12-14] MEDS: ULTRAM PO PRN (15:47)
--- NOTE | 2022-12-14 16:13 | RAD ---
HISTORYCONSTIPATIONSTUDYACUTE ABDOMEN SERIESCOMPARISONNoneFINDINGSThe lungs are not well inflated. As a result, there are hypoventilatory changes. Given the degree of inflation, I see no evidence for pneumonia.Heart size probably normal. The aorta is tortuous; this can be seen with atherosclerosis, hypertension, and aging.Gas is present in nondilated bowel. No bowel obstruction or free air. There is not an abnormally large amount of stool in the colon. No significant abnormal calcification is seen.Degenerative changes are present in the spine.Surgical clips are seen in the lower pelvis.IMPRESSION1. No significant abnormalityElectronically signed by: Joe Bagley (Dec 14, 2022 16:11:59)
[2022-12-14] MEDS: LINZESS PO SCH (18:20)
[2022-12-14] MEDS: SNACK - Diabetic Appropriate PO SCH (20:40)
[2022-12-14] MEDS ORDERED: COLACE CAP 100 MG PO SCH ×2 (21:00)
[2022-12-14] MEDS: PriLOSEC PO SCH (21:02)
[2022-12-14] MEDS: NORVASC TAB 10 MG PO SCH (21:03)
[2022-12-15] MEDS: NS + KCL 20 MEQ/L 1,000 ML IV SCH ×2 (00:55→08:57)
[2022-12-15 04:36] VITALS: RESP 20
[2022-12-15] MEDS ORDERED: GLUCOPHAGE ONE (05:23)
[2022-12-15] MEDS: GLUCOPHAGE PO SCH (05:24)
[2022-12-15 06:23] LABS: BASOPHILS # (AUTO) 0.1 X10^3/uL (0.0-0.1); BASOPHILS % (AUTO) 0.8 % (0.2-1.0); EOSINOPHILS # (AUTO) 0.3 x10^3/uL (0.0-0.2); EOSINOPHILS % (AUTO) 4.5 % (0.9-2.9); HEMOGLOBIN 12.4 g/dL (13.5-18.0); LYMPHOCYTES # (AUTO) 0.6 X10^3/uL (1.3-2.9); LYMPHOCYTES % (AUTO) 8.2 % (21.0-51.0); MEAN CORPUSCULAR HEMOGLOBIN 27.9 pg (27.0-34.0); MEAN CORPUSCULAR HGB CONC 34.4 g/dL (33.0-35.0); MEAN CORPUSCULAR VOLUME 81.2 fL (80.0-100.0); MEAN PLATELET VOLUME 8.9 fL (7.4-11.0); MONOCYTES # (AUTO) 0.8 x10^3/uL (0.3-0.8); MONOCYTES % (AUTO) 10.7 % (0.0-13.0); NEUTROPHILS # (AUTO) 5.6 x10^3/uL (2.2-4.8); NEUTROPHILS % (AUTO) 75.8 % (42.0-75.0); PLATELET COUNT 176 X10^3/uL (150.0-450.0); RED BLOOD COUNT 4.44 X10^6/uL (4.7-6.0); RED CELL DISTRIBUTION WIDTH 15.1 % (11.6-16.5); WHITE BLOOD COUNT 7.4 X10^3/uL (3.6-10.0)
[2022-12-15 06:40] LABS: ALANINE AMINOTRANSFERASE 100 Units/L (12-78); ALBUMIN 2.8 g/dL (3.4-5.0); ALKALINE PHOSPHATASE 228 Units/L (46-116); ASPARTATE AMINO TRANSFERASE 39 Units/L (15-37); BLOOD UREA NITROGEN 12 mg/dL (7-18); CALCIUM 8.6 mg/dL (8.5-10.1); CARBON DIOXIDE 26.5 mmol/L (21-32); CHLORIDE 99 mmol/L (98-107); COR CA(FOR HYPOALB) 9.6 mg/dL (8.5-10.1); COR NA(FOR HYPERGLY) 135 mmol/L (136-145); CREATININE 0.85 mg/dL (0.70-1.30); GLUCOSE 143 mg/dL (65-99); MAGNESIUM 1.9 mg/dL (2.0-2.9); POTASSIUM 4.1 mmol/L (3.5-5.1); SODIUM 134 mmol/L (136-145); TOTAL PROTEIN 6.2 g/dL (6.4-8.2); eGFR NON BLACK RACES > 60 (>60)
[2022-12-15] MEDS: ASPIRIN EC 81 MG PO SCH (08:56)
[2022-12-15] MEDS: LOVENOX INJ 40 MG SYR SC SCH (08:56)
[2022-12-15] MEDS: ACTOS PO SCH (08:56)
[2022-12-15] MEDS: FLOMAX PO SCH (08:56)
[2022-12-15] MEDS: MAG-OX TAB PO SCH (08:56)
[2022-12-15] MEDS: HYZAAR 50/12.5 MG PO SCH (08:56)
[2022-12-15] MEDS: SINEMET (PLAIN) 25/100 MG PO SCH (08:57)
[2022-12-15] MEDS: LINZESS PO SCH (09:00)
[2022-12-15 09:58] VITALS: BP 148/73; PULSE 90; TEMP 97.9; O2SAT 93
[2022-12-15] MEDS ORDERED: COLACE CAP 100 MG PO SCH (21:00)
== END 2022-12-15 12:20 | disposition home health service (06) ==
LOC: ER 10:41 → MED/SURG 10:41
PROVIDERS: ADMIT Obstetrics & Gynecology Obstetrics; ATTEND Internal Medicine
DX: R26.89 Other abnormalities of gait and mobility; I10 Essential (primary) hypertension; N40.1 Benign prostatic hyperplasia with lower urinary tract symptoms; R42 Dizziness and giddiness; R53.1 Weakness; Z59.86 Financial insecurity; R06.02 Shortness of breath; K21.9 Gastro-esophageal reflux disease without esophagitis; R29.6 Repeated falls; R74.01 Elevation of levels of liver transaminase levels; R94.31 Abnormal electrocardiogram [ECG] [EKG]; W18.39XA Other fall on same level, initial encounter; M25.522 Pain in left elbow; R35.0 Frequency of micturition; E86.0 Dehydration; E11.65 Type 2 diabetes mellitus with hyperglycemia; K59.09 Other constipation

== ENCOUNTER 2023-08-17 19:30 | Observation (INO) ==
--- NOTE | 2023-08-17 20:20 | DR.GENAD ---
HPI Time Seen Time Seen by Provider: 08/17/23 20:20 PCP Primary Care Physician: Melba Albert HPI Comment HPI Comment: 83 y/o with Parkinson's in with worsening, recurrent falls for the past 2-3 days per the son as below; information is hard to obtain from patient but he says he doesn't really hurt anywhere; he's legs are just "weak" and have been x "nine months"; he's been in PT which hasn't helped; for the past few days, he's become weaker and weaker; he denies cough, cp, sob, abd pain, n/v/d and headache. Complaint/Symptoms Chief Complaint:: Patient son states patient has been more unsteady since wednesday and has fell 5 time since wednesday. Patient states he does not have much energy. Source History Provided: Family Member Mode of Arrival Mode of Arrival: Wheelchair Timing Onset of Chief Complaint: 08/15/23 PMH PMH Past Medical History: Yes Past Medical History: Diabetes Past Surgical History: Yes Surgical History: Other Past Surgical History Comment: Prostate Family History History of Family Medical Conditions: No Family Medical History: Diabetes Mellitus and Hypertension Social History Do you use any recreational Drugs:: No Infectious screening Have you traveled outside the country in the last 6 months?: No Isolation: Standard ROS Review of Systems Constitutional: No Symptoms Reported Eyes: No Symptoms Reported ENTM: No Symptoms Reported Respiratoy: No Symptoms Reported Cardiovascular: No Symptoms Reported Gastrointestinal/Abdominal: No Symptoms Reported Genitourinary: No Symptoms Reported Neurological: No Symptoms Reported Musculoskeletal: See HPI Integumentary: No Symptoms Reported Hematologic/Lymphatic: No Symptoms Reported Endocrine: No Symptoms Reported Psychiatric: No Symptoms Reported PE Vital Signs Vitals: Vital Signs Temperature 97.5 F Pulse Rate 95 Pulse Rate 95 Pulse Rate 109 Pulse Rate 93 Pulse Rate 95 Pulse Rate 93 Pulse Rate 90 Pulse Rate 93 Pulse Rate 96 Pulse Rate 99 Respiratory Rate 33 Respiratory Rate 28 Respiratory Rate 33 Respiratory Rate 22 Respiratory Rate 28 Respiratory Rate 24 Respiratory Rate 25 Respiratory Rate 25 Respiratory Rate 27 Respiratory Rate 20 Blood Pressure 116/79 Blood Pressure 122/68 Blood Pressure 113/61 Blood Pressure 119/66 O2 Sat by Pulse Oximetry 94 O2 Sat by Pulse Oximetry 95 O2 Sat by Pulse Oximetry 95 O2 Sat by Pulse Oximetry 95 O2 Sat by Pulse Oximetry 92 O2 Sat by Pulse Oximetry 94 O2 Sat by Pulse Oximetry 95 O2 Sat by Pulse Oximetry 93 General Limitations: No Limitations General Appearance: Alert and In No Apparent Distress Head Head Exam: Normal Inspection Eyes Eye exam: Normal Appearance Neck Neck Exam: Normal Inspection Chest Chest Inspection: Normal Inspection Respiratory Respiratory Exam: Normal Lung Sounds Bilat Respiratory Exam: Bilateral: Clear to Auscultation Cardiovascular Cardiovascular Exam: Regular Rate and Normal Rhythm Abdominal Exam Abdominal Exam: Normal Inspection, Normal Bowel Sounds and Soft Extremities Extremities Exam: Normal Inspection Back Back Exam: Normal Inspection Neurologic Neurological Exam: Alert, Oriented X3 and Other (2-3/5 ble, 5/5 hand strength) Psychiatric Psychiatric Exam: Normal Affect and Normal Mood Skin Skin Exam: Warm, Dry, Intact and Normal Color COURSE Consultation Call Returned: 00:11 (Dr Yousif returned call, accepted admission and advised add ition of steroid and ivermectin to regimen; will defer ivermectin to attending.) Critical Care Notes Total Time (mins): 30 Critical Diagnosis: sepsis, hypoxia, covid 19 pneumonia Critical Interventions: labs/xrays with interpretation abx, fluids multiple discussions with family re: ros/lab results and need for admission discussion with attending for admission ROR Labs Reviewed Laboratory Results Reviewed?: Yes 08/17/23 20:38 08/17/23 20:38 Laboratory: WBC 13.3 X10^3/uL (3.6-10.0) H 08/17/23 20:38 RBC 4.81 X10^6/uL (4.7-6.0) 08/17/23 20:38 Hgb 13.6 g/dL (13.5-18.0) 08/17/23 20:38 Hct 39.8 % (42.0-54.0) L 08/17/23 20:38 MCV 82.8 fL (80.0-100.0) 08/17/23 20:38 MCH 28.3 pg (27.0-34.0) 08/17/23 20:38 MCHC 34.2 g/dL (33.0-35.0) 08/17/23 20:38 RDW 14.8 % (11.6-16.5) 08/17/23 20:38 Plt Count 225 X10^3/uL (150.0-450.0) 08/17/23 20:38 MPV 8.2 fL (7.4-11.0) 08/17/23 20:38 Neut % (Auto) 81.4 % (42.0-75.0) H 08/17/23 20:38 Lymph % (Auto) 7.3 % (21.0-51.0) L 08/17/23 20:38 Oliver % (Auto) 9.8 % (0.0-13.0) 08/17/23 20:38 Eos % (Auto) 0.8 % (0.9-2.9) L 08/17/23 20:38 Baso % (Auto) 0.7 % (0.2-1.0) 08/17/23 20:38 Neut # (Auto) 10.8 x10^3/uL (2.2-4.8) H 08/17/23 20:38 Lymph # (Auto) 1.0 X10^3/uL (1.3-2.9) L 08/17/23 20:38 Oliver # (Auto) 1.3 x10^3/uL (0.3-0.8) H 08/17/23 20:38 Eos # (Auto) 0.1 x10^3/uL (0.0-0.2) 08/17/23 20:38 Baso # (Auto) 0.1 X10^3/uL (0.0-0.1) 08/17/23 20:38 Absolute Nucleated RBC 0.0 /100WBC 08/17/23 20:38 Sample Site Rrad 08/17/23 23:17 ABG pH 7.440 (7.35-7.45) 08/17/23 23:17 ABG pCO2 34.0 mmHg (35.0-45.0) L 08/17/23 23:17 ABG pO2 66.0 mmHg (80.0-100.0) L 08/17/23 23:17 ABG HCO3 23.1 mmol/L (22-26) 08/17/23 23:17 ABG O2 Saturation 93.0 % (90-100) 08/17/23 23:17 ABG Base Excess -0.6 mmol/L (-2.0-2.0) 08/17/23 23:17 [place] Test Pos 08/17/23 23:17 A-a Gradient 41.0 mmHg 08/17/23 23:17 FiO2 21.0 08/17/23 23:17 Blood Gas Comments Erasmo abg well-mtf 08/17/23 23:17 Sodium 132 mmol/L (136-145) L 08/17/23 20:38 Corrected Sodium 133 mmol/L (136-145) L 08/17/23 20:38 Potassium 3.3 mmol/L (3.5-5.1) L 08/17/23 20:38 Chloride 96 mmol/L (98-107) L 08/17/23 20:38 Carbon Dioxide 25.0 mmol/L (21-32) 08/17/23 20:38 BUN 21 mg/dL (7-18) H 08/17/23 20:38 Creatinine 1.33 mg/dL (0.70-1.30) H 08/17/23 20:38 Est GFR (MDRD) Af Amer > 60 (>60) 08/17/23 20:38 Est GFR (MDRD) Non-Af 54 (>60) L 08/17/23 20:38 Glucose 154 mg/dL (65-99) H 08/17/23 20:38 Lactic Acid 1.7 mmol/L (0.4-2.0) 08/17/23 23:25 Calcium 9.2 mg/dL (8.5-10.1) 08/17/23 20:38 Corrected Calcium 9.8 mg/dL (8.5-10.1) 08/17/23 20:38 Magnesium 1.9 mg/dL (2.0-2.9) L 08/17/23 20:38 Total Bilirubin 1.80 mg/dL (0.2-1.0) H 08/17/23 20:38 AST 15 Units/L (15-37) 08/17/23 20:38 ALT < 6 Units/L (12-78) L 08/17/23 20:38 Alkaline Phosphatase 91 Units/L (46-116) 08/17/23 20:38 Total Protein 7.6 g/dL (6.4-8.2) 08/17/23 20:38 Albumin 3.2 g/dL (3.4-5.0) L 08/17/23 20:38 Globulin 4.4 g/dL (2.5-4.5) 08/17/23 20:38 Albumin/Globulin Ratio 0.7 Ratio (1.1-2.1) L 08/17/23 20:38 Specimen Type Clean catch urine 08/17/23 22: Urine Color Kathia (YELLOW) 08/17/23: Urine Appearance Clear (CLEAR) 08/17/23: Urine pH 5.0 (5.0 - 8.0) 08/17/23 22: Ur Specific [place] 1.020 (1.000-1.030) 08/17/23: Urine Protein 3+ (NEGATIVE) 08/17/23: Urine Glucose (UA) Negative (NEGATIVE) 08/17/23: Urine Ketones 1+ (NEGATIVE) 08/17/23: Urine Blood 1+ (NEGATIVE) 08/17/23: Urine Nitrite Negative (NEGATIVE) 08/17/23: Urine Bilirubin 1+ (NEGATIVE) 08/17/23: Urine Urobilinogen 1+ (NORMAL) 08/17/23: Ur Leukocyte Esterase 1+ (NEGATIVE) 08/17/23 22:25 Urine RBC 0-2 /HPF (0-3) 08/17/23 22: Urine WBC 0-2 /HPF (0-5) 08/17/23 22:25 Ur Squamous Epith Cells Few /HPF (NEGATIVE) 08/17/23 22:25 Urine Bacteria Trace /HPF (NEGATIVE) 08/17/23: Hyaline Casts Moderate /LPF (NEGATIVE) 08/17/23 22: Urine Mucus Few /HPF (NEGATIVE) 08/17/23 22:25 Ur Culture Indicated? No/not indicated 08/17/23 22:25 SARS-CoV-2 (PCR) Positive (NEGATIVE) A 08/17/23 21:05 Influenza Type A (PCR) Negative (NEGATIVE) 08/17/23 21:05 Influenza Type B (PCR) Negative (NEGATIVE) 08/17/23 21:05 RSV (PCR) Negative (NEGATIVE) 08/17/23 21:05 Other Results Comments: 83 y/o with Parkinson's in with worsening, recurrent falls for the past 2-3 days denies symptoms other than "weakness" in legs; no significant cough, fever or chills but tested positive covid with developing covid pneu most likely contributing to weakness; vs c/w sepsis; admit for hydration and abx. XRAY XRAY Interpreted by: Radiologist X-ray Results: ct brain: Advanced chronic brain changes. No acute intracranial process. ct chest w/o: Mild multifocal airspace infiltrates may represent developing pneumonia. 2.2 cm nodular density left lung apex may represent scarring but is indeterminate and warrants follow-up CT imaging in 3 months versus PET-CT evaluation. Moderately distended gallbladder of uncertain significance. Left nephrolithiasis without obstruction. Opioid Opioid Risk Tool Age (Fly box if 16-45): No History of Preadolescent Sexual Abuse: No Total: 0 Total Score Risk Category: Low Risk Copyright: Blade STEWART predicting aberrant behaviors Discharge Plan Diagnosis Discharge Problem: Sepsis due to COVID-19, Pneumonia due to 2019 novel coronavirus, Weakness, Hypoxia Discharge Plan Patient Disposition: 09 ADMITTED INPATIENT Condition: Stable Prescriptions: No Action aspirin 81 mg Tablet,Delayed Release (Dr/Ec) 81 mg PO DAILY docusate sodium 100 mg Capsule 200 mg PO HS Qty: 60 4RF pioglitazone 30 mg tablet 30 mg PO DAILY Qty: 30 4RF polyethylene glycol 3350 [Miralax] 17 gram/dose powder 17 g PO DAILY Qty: 1 3RF magnesium hydroxide [Milk of Magnesia] 400 mg/5 mL Suspension 10 ml PO QID PRNQty: 1 3RF metformin 500 mg tablet 500 mg PO TID carbidopa-levodopa 25-250 mg tablet 1 tab PO BID simvastatin 40 mg tablet 40 mg PO QPM losartan-hydrochlorothiazide 100-25 mg tablet 1 tab PO QDAY tamsulosin 0.4 mg capsule 0.4 mg PO QPM amlodipine 10 mg tablet 10 mg PO QPM omeprazole 20 mg capsule,delayed release(DR/EC) 20 mg PO QDAY Health Concerns: Post Hospitalization: new medications and changes needed to prevent readmission or further decline. Pt educated and given instructions on all concerns. Plan of Treatment: Continue with present treatment and follow up plan. Pt is to keep follow up appointment as instructed and take medications as ordered. Follow ups/Referrals Follow ups/Referrals: MELBA ALBERT [Primary Care Provider] - 3 days
[2023-08-17 20:45] LABS: BASOPHILS # (AUTO) 0.1 X10^3/uL (0.0-0.1); BASOPHILS % (AUTO) 0.7 % (0.2-1.0); EOSINOPHILS # (AUTO) 0.1 x10^3/uL (0.0-0.2); EOSINOPHILS % (AUTO) 0.8 % (0.9-2.9); HEMATOCRIT 39.8 % (42.0-54.0); HEMOGLOBIN 13.6 g/dL (13.5-18.0); LYMPHOCYTES % (AUTO) 7.3 % (21.0-51.0); MEAN CORPUSCULAR HEMOGLOBIN 28.3 pg (27.0-34.0); MEAN CORPUSCULAR HGB CONC 34.2 g/dL (33.0-35.0); MEAN CORPUSCULAR VOLUME 82.8 fL (80.0-100.0); MEAN PLATELET VOLUME 8.2 fL (7.4-11.0); MONOCYTES # (AUTO) 1.3 x10^3/uL (0.3-0.8); MONOCYTES % (AUTO) 9.8 % (0.0-13.0); NEUTROPHILS # (AUTO) 10.8 x10^3/uL (2.2-4.8); NEUTROPHILS % (AUTO) 81.4 % (42.0-75.0); PLATELET COUNT 225 X10^3/uL (150.0-450.0); RED BLOOD COUNT 4.81 X10^6/uL (4.7-6.0); RED CELL DISTRIBUTION WIDTH 14.8 % (11.6-16.5); WHITE BLOOD COUNT 13.3 X10^3/uL (3.6-10.0)
[2023-08-17 20:59] LABS: ALANINE AMINOTRANSFERASE < 6 Units/L (12-78); ALBUMIN 3.2 g/dL (3.4-5.0); ALKALINE PHOSPHATASE 91 Units/L (46-116); ASPARTATE AMINO TRANSFERASE 15 Units/L (15-37); BLOOD UREA NITROGEN 21 mg/dL (7-18); CALCIUM 9.2 mg/dL (8.5-10.1); CHLORIDE 96 mmol/L (98-107); COR CA(FOR HYPOALB) 9.8 mg/dL (8.5-10.1); COR NA(FOR HYPERGLY) 133 mmol/L (136-145); CREATININE 1.33 mg/dL (0.70-1.30); GLUCOSE 154 mg/dL (65-99); POTASSIUM 3.3 mmol/L (3.5-5.1); SODIUM 132 mmol/L (136-145); TOTAL PROTEIN 7.6 g/dL (6.4-8.2); eGFR NON BLACK RACES 54 (>60)
--- NOTE | 2023-08-17 21:32 | CT ---
EXAM:BRAIN W/O CONHISTORY:Patient son states patient has been more unsteady since wednesday and has fallen 5 time since Wednesday. Patient states he does not have much energy.;COMPARISON:CT of the brain October 01, 2022TECHNIQUE:CT of the brain without contrastFINDINGS:Advanced generalized brain atrophy. Advanced microvascular ischemic change in the bilateral periventricular white matter. Prominent ventricle size is similar to the comparison study and commensurate with the degree of volume loss. No hemorrhage or extra-axial collection. No midline shift. No mass or mass effect. The mastoid air cells are clear. The zygomatic arches are intact. No sinus air-fluid levels. Mild mucoperiosteal thickening in the sphenoid sinuses.IMPRESSION:Advanced chronic brain changes. No acute intracranial process.Dose reduction techniques including automated exposure control (AEC) and adjustment of mA and kv were utilized.THIS IS AN ELECTRONICALLY VERIFIED FINAL REPORT08/17/2023 9:29 PM - Electronically signed by Terrance Guidry MD
[2023-08-17] MEDS: NS 1,000 ML IV 1,000 ML IV ONE (22:21)
[2023-08-17] MEDS: K-DUR TAB 20 MEQ PO SCH (22:22)
--- NOTE | 2023-08-17 22:24 | CT ---
EXAM:CHEST W/O CONHISTORY:Patient son states patient has been more unsteady since wednesday and has fell 5 time since wednesday. Patient states he does not have much energy.;COMPARISON:Frontal chest radiograph August 15, 2023TECHNIQUE:CT of the chest without intravenous contrastFINDINGS:Sensitivity is reduced without intravenous contrast. The thoracic aorta tapers normally with advanced multifocal atherosclerotic calcifications. No pericardial effusion. Extensive coronary atherosclerotic calcifications are evident. No mediastinal lymphadenopathy.Limited visualization of the upper abdomen demonstrates a moderately distended gallbladder. Renal cortical cysts are present. There is atrophy of the pancreas. 2 mm and punctate left renal stones.There is a 2.2 cm nodular density in the left lung apex which could represent scarring but is indeterminate and warrants follow-up. There is mild airspace infiltrate in the medial and lateral aspect of the right upper lobe. There is mild airspace infiltrate dependently in the right lower lobe. There is no pleural effusion or pneumothorax. No displaced fracture.IMPRESSION:Mild multifocal airspace infiltrates may represent developing pneumonia.2.2 cm nodular density left lung apex may represent scarring but is indeterminate and warrants follow-up CT imaging in 3 months versus PET-CT evaluation.Moderately distended gallbladder of uncertain significance.Left nephrolithiasis without obstruction.Dose reduction techniques including automated exposure control (AEC) and adjustment of mA and kv were utilized.THIS IS AN ELECTRONICALLY VERIFIED FINAL REPORT08/17/2023 10:20 PM - Electronically signed by Terrance Guidry MD
[2023-08-17 22:58] LABS: BILIRUBIN,URINE 1+ (NEGATIVE); BLOOD/HEMOGLOBIN,URINE 1+ (NEGATIVE); GLUCOSE, URINE NEGATIVE (NEGATIVE); KETONES,URINE 1+ (NEGATIVE); LEUKOCYTE ESTERASE ,URINE 1+ (NEGATIVE); NITRITES,URINE NEGATIVE (NEGATIVE); PROTEIN,URINE 3+ (NEGATIVE); UROBILINOGEN,URINE 1+ (NORMAL)
[2023-08-17 23:01] LABS: APPEARANCE,URINE CLEAR (CLEAR); BACTERIA,URINE TRACE /HPF (NEGATIVE); COLOR,URINE AMBER (YELLOW); HYALINE CASTS, URINE MODERATE /LPF (NEGATIVE); RBC,URINE 0-2 /HPF (0-3); SQUAMOUS EPITHELIAL CELL,UR FEW /HPF (NEGATIVE)
[2023-08-17] MEDS: ZOSYN VIAL 3.375 GRAMS 3.375 G in NS 100 ML IV 100 ML IV SCH (23:15)
[2023-08-17 23:18] LABS: ABG BASE EXCESS -0.6 mmol/L (-2.0-2.0); ABG HCO3 23.1 mmol/L (22-26)
[2023-08-17 23:19] LABS: ABG ALLEN TEST POS
[2023-08-18] MEDS ORDERED: PERIACTIN TAB 4 MG PO PRN (00:36)
[2023-08-18] MEDS ORDERED: SOLU-Medrol 125 MG VIAL IVP SCH (01:00)
[2023-08-18] MEDS: CONSULT PHARMACY - ANTIBIOTIC XX SCH (01:40)
[2023-08-18] MEDS: PHARMACY CONSULT - LOVENOX XX SCH (01:40)
[2023-08-18] MEDS: PHARMACY CONSULT - IVERMECTIN XX SCH (01:41)
[2023-08-18] MEDS: SOLU-Medrol 125 MG VIAL IVP SCH ×2 (01:49→15:20)
[2023-08-18] MEDS: NS 1,000 ML IV 1,000 ML IV SCH (01:49)
[2023-08-18 03:04] VITALS: BMI 26.4
[2023-08-18] MEDS: ASCORBIC ACID INJ MULTI-DOSE VIAL 1,500 MG in NS 100 ML IV 100 ML IV SCH (03:53)
[2023-08-18 05:20] LABS: BASOPHILS % (AUTO) 0.5 % (0.2-1.0); EOSINOPHILS # (AUTO) 0.1 x10^3/uL (0.0-0.2); EOSINOPHILS % (AUTO) 1.2 % (0.9-2.9); HEMATOCRIT 37.9 % (42.0-54.0); HEMOGLOBIN 12.7 g/dL (13.5-18.0); LYMPHOCYTES # (AUTO) 0.4 X10^3/uL (1.3-2.9); LYMPHOCYTES % (AUTO) 4.4 % (21.0-51.0); MEAN CORPUSCULAR HEMOGLOBIN 27.8 pg (27.0-34.0); MEAN CORPUSCULAR HGB CONC 33.5 g/dL (33.0-35.0); MEAN CORPUSCULAR VOLUME 83.1 fL (80.0-100.0); MEAN PLATELET VOLUME 8.7 fL (7.4-11.0); MONOCYTES # (AUTO) 0.3 x10^3/uL (0.3-0.8); MONOCYTES % (AUTO) 3.5 % (0.0-13.0); NEUTROPHILS # (AUTO) 8.8 x10^3/uL (2.2-4.8); NEUTROPHILS % (AUTO) 90.4 % (42.0-75.0); PLATELET COUNT 200 X10^3/uL (150.0-450.0); RED BLOOD COUNT 4.57 X10^6/uL (4.7-6.0); RED CELL DISTRIBUTION WIDTH 15.3 % (11.6-16.5); WHITE BLOOD COUNT 9.8 X10^3/uL (3.6-10.0)
[2023-08-18 05:25] LABS: ALANINE AMINOTRANSFERASE < 6 Units/L (12-78); ALBUMIN 2.8 g/dL (3.4-5.0); ALKALINE PHOSPHATASE 82 Units/L (46-116); ASPARTATE AMINO TRANSFERASE 15 Units/L (15-37); BLOOD UREA NITROGEN 20 mg/dL (7-18); CALCIUM 8.5 mg/dL (8.5-10.1); CARBON DIOXIDE 25.8 mmol/L (21-32); CHLORIDE 99 mmol/L (98-107); COR CA(FOR HYPOALB) 9.5 mg/dL (8.5-10.1); COR NA(FOR HYPERGLY) 136 mmol/L (136-145); CREATININE 1.11 mg/dL (0.70-1.30); GLUCOSE 148 mg/dL (65-99); POTASSIUM 3.6 mmol/L (3.5-5.1); SODIUM 135 mmol/L (136-145); TOTAL PROTEIN 6.8 g/dL (6.4-8.2); eGFR NON BLACK RACES > 60 (>60)
[2023-08-18 06:01] LABS: PLATELET MORPHOLOGY COMMENT NORMAL (NORMAL)
[2023-08-18] MEDS: NS 250 ML IV 25 ML IV PRN (06:09)
[2023-08-18] MEDS: BROVANA IN SCH (08:31)
[2023-08-18] MEDS: PULMICORT NEB TX 0.5 MG NEB SCH (08:31)
[2023-08-18] MEDS ORDERED: VITAMIN A PO SCH (09:00)
[2023-08-18] MEDS: THIAMINE HCL INJ IVP SCH (09:58)
[2023-08-18] MEDS: LOVENOX INJ 40 MG SYR SC SCH (09:58)
[2023-08-18] MEDS: ZINC SULFATE PO SCH (09:59)
[2023-08-18] MEDS: PEPCID TAB 40 MG PO SCH (09:59)
[2023-08-18] MEDS: VITAMIN D (1.25MG) PO SCH (10:33)
--- NOTE | 2023-08-18 11:03 | DR.H&P ---
H&P History & Physical for Day of: H&P Date: 08/18/23 Chief Complaint Chief Complaint: weakness, falls Allergies Allergies Allergy/AdvReac Type Severity Reaction Status Date / Time No Known Allergies Allergy Verified 08/15/23 11:11 History of Present Illness History of Present Illness: Mr Zimmerman is a 83y/o male with a PMH of Parkinson's, recurrent falls, HTN, GERD, Type 2 DM, HLD presented with weakness and recurrent falls. Er work up showed CT-head with no acute changes. COVID-[address]-chest showed multifocal infiltrates. Patient was started on COVID-19 protocol and admitted to ICU for further care. He is feeling better this morning. He is able to stand with assistance. He is on 2L NC. He reports good PO intake. He is currently on IV steroids, antibiotics and bronchodilators. Labs/imaging reviewed -WBC 9.8 Hgb 12.7 BUN/Cr:20/1.11 lactic acid: 1.7 -CT-head and CT-chest reviewed Plan: continue ICU care with precautions. Wean O2 as tolerated. Continue IV solumedrol and Zosyn. Will add Remdesivir. Continue vitamin replacement. Resume home medications. Replace electrolytes prn. Lovenox for DVT ppx. PT/OT as tolerated. Monitor AM labs/imaging. Past Medical History Past Medical History: Diabetes Past Surgical History Surgical History: Other Family History Family Medical History: Diabetes Mellitus and Hypertension Social History Does patient currently use any type of tobacco product: No Have you used tobacco products in the last 12 months: No Type of Tobacco Use: None Does any household member use tobacco: No Alcohol Use: Occasionally Drug Use: None Medications Home Medications: Home Medications Medication Instructions Recorded Confirmed Type aspirin 81 mg tablet,delayed 81 mg PO DAILY 10/01/22 08/15/23 History release amlodipine 10 mg tablet 10 mg PO QPM 08/15/23 08/15/23 History carbidopa 25 mg-levodopa 250 mg 1 tab PO BID 08/15/23 08/15/23 History tablet losartan 100 1 tab PO QDAY 08/15/23 08/15/23 History mg-hydrochlorothiazide 25 mg tablet metformin 500 mg tablet 500 mg PO TID 08/15/23 08/15/23 History omeprazole 20 mg capsule,delayed 20 mg PO QDAY 08/15/23 08/15/23 History release simvastatin 40 mg tablet 40 mg PO QPM 08/15/23 08/15/23 History tamsulosin 0.4 mg capsule 0.4 mg PO QPM 08/15/23 08/15/23 History Labs 08/18/23 04:00 08/18/23 04:00 Labs: Laboratory WBC 9.8 X10^3/uL (3.6-10.0) 08/18/23 04:00 RBC 4.57 X10^6/uL (4.7-6.0) L 08/18/23 04:00 Hgb 12.7 g/dL (13.5-18.0) L 08/18/23 04:00 Hct 37.9 % (42.0-54.0) L 08/18/23 04:00 MCV 83.1 fL (80.0-100.0) 08/18/23 04:00 MCH 27.8 pg (27.0-34.0) 08/18/23 04:00 MCHC 33.5 g/dL (33.0-35.0) 08/18/23 04:00 RDW 15.3 % (11.6-16.5) 08/18/23 04:00 Plt Count 200 X10^3/uL (150.0-450.0) 08/18/23 04:00 Plt Count Comment Adequate (ADEQUATE) 08/18/23 04:00 MPV 8.7 fL (7.4-11.0) 08/18/23 04:00 Neut % (Auto) 90.4 % (42.0-75.0) H 08/18/23 04:00 Lymph % (Auto) 4.4 % (21.0-51.0) L 08/18/23 04:00 [place] % (Auto) 3.5 % (0.0-13.0) 08/18/23 04:00 Eos % (Auto) 1.2 % (0.9-2.9) 08/18/23 04:00 Baso % (Auto) 0.5 % (0.2-1.0) 08/18/23 04:00 Neut # (Auto) 8.8 x10^3/uL (2.2-4.8) H 08/18/23 04:00 Lymph # (Auto) 0.4 X10^3/uL (1.3-2.9) L 08/18/23 04:00 [place] # (Auto) 0.3 x10^3/uL (0.3-0.8) 08/18/23 04:00 Eos # (Auto) 0.1 x10^3/uL (0.0-0.2) 08/18/23 04:00 Baso # (Auto) 0.0 X10^3/uL (0.0-0.1) 08/18/23 04:00 Absolute Nucleated RBC 0.1 /100WBC 08/18/23 04:00 Total Counted 100 08/18/23 04:00 Neutrophils % (Manual) 91 % (39-76) H 08/18/23 04:00 Lymphocytes % (Manual) 6 % (13-43) L 08/18/23 04:00 Monocytes % (Manual) 2 % (4-9) L 08/18/23 04:00 Eosinophils % (Manual) 1 % (0-6) 08/18/23 04:00 Plt Morphology Comment Normal (NORMAL) 08/18/23 04:00 RBC Morphology Normal (NORMAL) 08/18/23 04:00 Sample Site Rrad 08/17/23 23:17 ABG pH 7.440 (7.35-7.45) 08/17/23 23:17 ABG pCO2 34.0 mmHg (35.0-45.0) L 08/17/23 23:17 ABG pO2 66.0 mmHg (80.0-100.0) L 08/17/23 23:17 ABG HCO3 23.1 mmol/L (22-26) 08/17/23 23:17 ABG O2 Saturation 93.0 % (90-100) 08/17/23 23:17 ABG Base Excess -0.6 mmol/L (-2.0-2.0) 08/17/23 23:17 [place] Test Pos 08/17/23 23:17 A-a Gradient 41.0 mmHg 08/17/23 23:17 FiO2 21.0 08/17/23 23:17 Blood Gas Comments Erasmo abg well-mtf 08/17/23 23:17 Sodium 135 mmol/L (136-145) L 08/18/23 04:00 Corrected Sodium 136 mmol/L (136-145) 08/18/23 04:00 Potassium 3.6 mmol/L (3.5-5.1) 08/18/23 04:00 Chloride 99 mmol/L (98-107) 08/18/23 04:00 Carbon Dioxide 25.8 mmol/L (21-32) 08/18/23 04:00 BUN 20 mg/dL (7-18) H 08/18/23 04:00 Creatinine 1.11 mg/dL (0.70-1.30) 08/18/23 04:00 Est GFR (MDRD) Af Amer > 60 (>60) 08/18/23 04:00 Est GFR (MDRD) Non-Af > 60 (>60) 08/18/23 04:00 Glucose 148 mg/dL (65-99) H 08/18/23 04:00 Lactic Acid 1.7 mmol/L (0.4-2.0) 08/17/23 23:25 Calcium 8.5 mg/dL (8.5-10.1) 08/18/23 04:00 Corrected Calcium 9.5 mg/dL (8.5-10.1) 08/18/23 04:00 Magnesium 1.9 mg/dL (2.0-2.9) L 08/17/23 20:38 Total Bilirubin 1.50 mg/dL (0.2-1.0) H 08/18/23 04:00 AST 15 Units/L (15-37) 08/18/23 04:00 ALT < 6 Units/L (12-78) L 08/18/23 04:00 Alkaline Phosphatase 82 Units/L (46-116) 08/18/23 04:00 Total Protein 6.8 g/dL (6.4-8.2) 08/18/23 04:00 Albumin 2.8 g/dL (3.4-5.0) L 08/18/23 04:00 Globulin 4.0 g/dL (2.5-4.5) 08/18/23 04:00 Albumin/Globulin Ratio 0.7 Ratio (1.1-2.1) L 08/18/23 04:00 Specimen Type Clean catch urine 08/17/23 22:25 Urine Color Kathia (YELLOW) 08/17/23 22:25 Urine Appearance Clear (CLEAR) 08/17/23: Urine pH 5.0 (5.0 - 8.0) 08/17/23 22:25 Ur Specific [place] 1.020 (1.000-1.030) 08/17/23 22:25 Urine Protein 3+ (NEGATIVE) 08/17/23 22:25 Urine Glucose (UA) Negative (NEGATIVE) 08/17/23 22:25 Urine Ketones 1+ (NEGATIVE) 08/17/23 22:25 Urine Blood 1+ (NEGATIVE) 08/17/23 22: Urine Nitrite Negative (NEGATIVE) 08/17/23 22: Urine Bilirubin 1+ (NEGATIVE) 08/17/23 22: Urine Urobilinogen 1+ (NORMAL) 08/17/23 22:25 Ur Leukocyte Esterase 1+ (NEGATIVE) 08/17/23 22:25 Urine RBC 0-2 /HPF (0-3) 08/17/23 22:25 Urine WBC 0-2 /HPF (0-5) 08/17/23 22:25 Ur Squamous Epith Cells Few /HPF (NEGATIVE) 08/17/23 22:25 Urine Bacteria Trace /HPF (NEGATIVE) 08/17/23 22: Hyaline Casts Moderate /LPF (NEGATIVE) 08/17/23 22:25 Urine Mucus Few /HPF (NEGATIVE) 08/17/23 22:25 Ur Culture Indicated? No/not indicated 08/17/23 22:25 SARS-CoV-2 (PCR) Positive (NEGATIVE) A 08/17/23 21:05 Influenza Type A (PCR) Negative (NEGATIVE) 08/17/23 21:05 Influenza Type B (PCR) Negative (NEGATIVE) 08/17/23 21:05 RSV (PCR) Negative (NEGATIVE) 08/17/23 21:05 Review of Systems Constitutional: Weakness Eyes: No Symptoms Reported ENT: No Symptoms Reported Respiratory: Cough and Shortness of Breath Cardiovascular: No Symptoms Reported Gastrointestinal: No Symptoms Reported Genitourinary: No Symptoms Reported Musculoskeletal: No Symptoms Reported Skin: No Symptoms Reported Neurological: No Symptoms Reported Physical Exam Vital Signs: Vital Signs Temperature 97.6 F Temperature 98.8 F Pulse Rate [Right Brachial] 71 Pulse Rate 83 Pulse Rate 87 Pulse Rate 90 Pulse Rate 84 Pulse Rate 92 Pulse Rate 67 Pulse Rate 67 Pulse Rate 72 Pulse Rate 71 Pulse Rate 71 Respiratory Rate 24 Respiratory Rate 20 Respiratory Rate 20 Respiratory Rate 17 Respiratory Rate 16 Respiratory Rate 17 Respiratory Rate 18 Respiratory Rate 17 Respiratory Rate 19 Blood Pressure [Right Arm] 165/75 Blood Pressure 154/82 O2 Sat by Pulse Oximetry 94 O2 Sat by Pulse Oximetry 94 O2 Sat by Pulse Oximetry 97 O2 Sat by Pulse Oximetry 98 O2 Sat by Pulse Oximetry 96 O2 Sat by Pulse Oximetry 96 O2 Sat by Pulse Oximetry 98 O2 Sat by Pulse Oximetry 96 O2 Sat by Pulse Oximetry 96 O2 Sat by Pulse Oximetry 96 Oriented: Normal Eyes: Normal Ear: Normal Throat: Normal Respiratory: Diminished Throughout, RLL Rales and LLL Rales Cardiovascular: Normal Auscultation: Bowel Sounds: Normal Palpation: Normal Tenderness: Normal Skin: Normal Musculoskeletal: Normal Psychiatric: Normal Mood Description: Calm Affect: Normal Speech Pattern: Clear and Appropriate Assessment/Plan (1) COVID-19 virus infection: Status: Acute (2) Pneumonia: Qualifiers: Laterality: bilateral Lung location: unspecified part of lung Pneumonia type: due to unspecified organism Qualified Code(s): J18.9 - Pneumonia, unspecified organism Status: Acute (3) Acute respiratory failure: Qualifiers: Respiratory failure complication: hypoxia Qualified Code(s): J96.01 - Acute respiratory failure with hypoxia Status: Acute (4) AMS (altered mental status): Qualifiers: Altered mental status type: disorientation Qualified Code(s): R41.0 - Disorientation, unspecified Status: Acute (5) Generalized weakness: Status: Acute (6) Frequent falls: Status: Acute (7) GERD (gastroesophageal reflux disease): Qualifiers: Esophagitis presence: esophagitis presence not specified Qualified Code(s): K21.9 - Gastro-esophageal reflux disease without esophagitis Status: Chronic (8) DM II (diabetes mellitus, type II), controlled: Qualifiers: Diabetes mellitus complication status: with hyperglycemia Diabetes mellitus correction insulin use: with oil heaterman use Qualified Code(s): E11.65 - Type 2 diabetes mellitus with hyperglycemia; Z79.4 - FDC (current) use of insulin Status: Chronic (9) Parkinson disease: Qualifiers: Dyskinesia presence: unspecified whether dyskinesia Fluctuating manifestations: unspecified whether manifestations fluctuate Qualified Code(s): G20.A1 - Parkinson's disease without dyskinesia, without mention of fluctuations Status: Acute Review H&P Reviewed: Yes Patient was examined?: Yes
[2023-08-18] MEDS: REMDESIVIR 200 MG in NS 100 ML IV 140 ML IV ONE (13:26)
[2023-08-18] MEDS: NovoLIN R (or HumuLIN R) SC PRN (13:31)
[2023-08-18] MEDS: NS 1,000 ML IV 1,000 ML ONE (16:48)
[2023-08-18] MEDS ORDERED: MELATONIN PO SCH (21:00)
[2023-08-18] MEDS: NORVASC TAB 10 MG PO SCH (21:05)
[2023-08-18] MEDS: COLACE CAP 100 MG PO SCH (21:06)
[2023-08-18] MEDS: ZOCOR TAB 40 MG PO SCH (21:06)
[2023-08-18] MEDS: FLOMAX PO SCH (21:07)
[2023-08-18] MEDS: SINEMET (PLAIN) 25/250 MG PO SCH (21:09)
[2023-08-18] MEDS ORDERED: GLUCOPHAGE PO SCH (22:00)
[2023-08-19] MEDS: GLUCOPHAGE ONE ×2 (03:09→09:58)
[2023-08-19 05:22] LABS: BASOPHILS % (AUTO) 0.2 % (0.2-1.0); HEMATOCRIT 37.4 % (42.0-54.0); HEMOGLOBIN 12.6 g/dL (13.5-18.0); LYMPHOCYTES # (AUTO) 0.3 X10^3/uL (1.3-2.9); LYMPHOCYTES % (AUTO) 3.7 % (21.0-51.0); MEAN CORPUSCULAR HEMOGLOBIN 27.9 pg (27.0-34.0); MEAN CORPUSCULAR HGB CONC 33.6 g/dL (33.0-35.0); MEAN PLATELET VOLUME 8.6 fL (7.4-11.0); MONOCYTES # (AUTO) 0.3 x10^3/uL (0.3-0.8); MONOCYTES % (AUTO) 3.4 % (0.0-13.0); NEUTROPHILS # (AUTO) 8.5 x10^3/uL (2.2-4.8); NEUTROPHILS % (AUTO) 92.7 % (42.0-75.0); PLATELET COUNT 216 X10^3/uL (150.0-450.0); RED CELL DISTRIBUTION WIDTH 14.7 % (11.6-16.5); WHITE BLOOD COUNT 9.2 X10^3/uL (3.6-10.0)
[2023-08-19 05:40] LABS: ALANINE AMINOTRANSFERASE < 6 Units/L (12-78); ALBUMIN 2.6 g/dL (3.4-5.0); ALKALINE PHOSPHATASE 74 Units/L (46-116); ASPARTATE AMINO TRANSFERASE 14 Units/L (15-37); BLOOD UREA NITROGEN 26 mg/dL (7-18); CALCIUM 8.2 mg/dL (8.5-10.1); CARBON DIOXIDE 25.1 mmol/L (21-32); CHLORIDE 101 mmol/L (98-107); COR CA(FOR HYPOALB) 9.3 mg/dL (8.5-10.1); COR NA(FOR HYPERGLY) 141 mmol/L (136-145); CREATININE 1.05 mg/dL (0.70-1.30); GLUCOSE 237 mg/dL (65-99); MAGNESIUM 2.1 mg/dL (2.0-2.9); POTASSIUM 3.3 mmol/L (3.5-5.1); SODIUM 138 mmol/L (136-145); TOTAL PROTEIN 6.6 g/dL (6.4-8.2); eGFR NON BLACK RACES > 60 (>60)
[2023-08-19] MEDS: GLUCOPHAGE PO SCH (06:04)
[2023-08-19 06:16] LABS: PLATELET MORPHOLOGY COMMENT NORMAL (NORMAL)
[2023-08-19] MEDS ORDERED: CONSULT PHARMACY - POTASSIUM & MAGNESIUM XX SCH (07:00)
--- NOTE | 2023-08-19 08:03 | RAD ---
EXAM:AP chestHISTORY:Follow-up COVID pneumoniaCOMPARISON:08/15/2023, chest CT 08/17/2023FINDINGS:Heart size normal with arteriosclerotic aortic dilation. No definite consolidation, edema, pneumothorax or pleural fluid. There is nonspecific interstitial prominence.IMPRESSION:No localized abnormality identified. Multifocal pulmonary infiltrates described on recent CT not identified on this portable exam.THIS IS AN ELECTRONICALLY VERIFIED FINAL REPORT08/19/2023 7:59 AM - Electronically signed by Kamlesh Kennedy MD
[2023-08-19] MEDS ORDERED: PATIENT'S HOME MEDICATION (Losartan-Hydrochlorothiazide 100-25 mg tablet) PO SCH (09:00)
[2023-08-19] MEDS: HYZAAR 50/12.5 MG PO SCH (09:47)
[2023-08-19] MEDS: ASPIRIN EC 81 MG PO SCH (09:48)
[2023-08-19] MEDS: REMDESIVIR 100 MG in NS 100 ML IV 120 ML IV SCH (09:49)
[2023-08-19] MEDS: PriLOSEC PO SCH (09:56)
[2023-08-19] MEDS: K-DUR TAB 20 MEQ PO SCH ×2 (09:58→11:36)
--- NOTE | 2023-08-19 10:15 | PCM.PROG ---
Progress Note Progress Note for Day of Date of Exam: 08/19/23 Subjective Subjective: Pt is a 83y/o male with a PMH of Parkinson's, recurrent falls, HTN, GERD, Type 2 DM, HLD admitted for COVID-19, Pneumonia, Acute respiratory failure, altered mental status, and generalized weakness. This morning he is sitting in recliner and reports significant improvement in his breathing and strength. He is able to stand with assistance. He is on 2L NC. He reports good PO intake. He is currently on IV steroids, antibiotics and bronchodilators. No acute events overnight. Labs/imaging reviewed - WBCs 9.2, hemoglobin 12.6, platelets 216, sodium 138, potassium 3.3, creatinine 1.05, glucose 237. - CXR: no localized abnormality - CT-chest multifocal infiltrates, 2.2 cm nodular density left lung apex, may represent scarring but is indeterminate and warrants follow-up CT imaging in 3 months versus PET-CT evaluation. Plan: Continue COVID-19 protocol in ICU care with precautions. Wean O2 as tolerated. Continue IV solumedrol, Zosyn, and Remdesivir. Continue vitamin replacement. Home medications have been restarted. Replace electrolytes prn. Lovenox for DVT ppx. PT/OT as tolerated. Monitor AM labs/imaging. Past Medical Family Social History Allergies: Allergies No Known Allergies Allergy (Verified 08/15/23 11:11) Review of Systems ROS changes noted: see HPI Vital Signs and I&O's Vital Signs: Vital Signs Temperature 98.3 F Temperature 97.9 F Pulse Rate 83 Pulse Rate 97 Pulse Rate 95 Pulse Rate 75 Pulse Rate 79 Respiratory Rate 22 Respiratory Rate 20 Respiratory Rate 17 Respiratory Rate 20 Blood Pressure 136/74 Blood Pressure 135/71 Blood Pressure 127/96 O2 Sat by Pulse Oximetry 98 O2 Sat by Pulse Oximetry 75 O2 Sat by Pulse Oximetry 75 O2 Sat by Pulse Oximetry 94 O2 Sat by Pulse Oximetry 95 Intake and Output: Intake & Output 08/16/23 08/17/23 08/18/23 08/19/23 23:59 23:59 23:59 23:59 Intake Total 1698 / 1698 454 / 454 Output Total 1800 / 1800 600 / 600 Balance -102 / -102 -146 / -146 Physical Exam Oriented: Normal Eyes: Normal Ear: Normal Throat: Normal Respiratory: Diminished Cardiovascular: Normal Auscultation: Bowel Sounds: Normal Tenderness: Normal Skin: Normal Musculoskeletal: Normal Psychiatric: Normal Mood Description: Calm Affect: Normal Speech Pattern: Clear and Appropriate Laboratory and Diagnostics 08/19/23 04:05 08/19/23 04:05 Labs: Laboratory WBC 9.2 X10^3/uL (3.6-10.0) 08/19/23 04:05 RBC 4.50 X10^6/uL (4.7-6.0) L 08/19/23 04:05 Hgb 12.6 g/dL (13.5-18.0) L 08/19/23 04:05 Hct 37.4 % (42.0-54.0) L 08/19/23 04:05 MCV 83.0 fL (80.0-100.0) 08/19/23 04:05 MCH 27.9 pg (27.0-34.0) 08/19/23 04:05 MCHC 33.6 g/dL (33.0-35.0) 08/19/23 04:05 RDW 14.7 % (11.6-16.5) 08/19/23 04:05 Plt Count 216 X10^3/uL (150.0-450.0) 08/19/23 04:05 Plt Count Comment Adequate (ADEQUATE) 08/19/23 04:05 MPV 8.6 fL (7.4-11.0) 08/19/23 04:05 Neut % (Auto) 92.7 % (42.0-75.0) H 08/19/23 04:05 Lymph % (Auto) 3.7 % (21.0-51.0) L 08/19/23 04:05 [place] % (Auto) 3.4 % (0.0-13.0) 08/19/23 04:05 Eos % (Auto) 0.0 % (0.9-2.9) L 08/19/23 04:05 Baso % (Auto) 0.2 % (0.2-1.0) 08/19/23 04:05 Neut # (Auto) 8.5 x10^3/uL (2.2-4.8) H 08/19/23 04:05 Lymph # (Auto) 0.3 X10^3/uL (1.3-2.9) L 08/19/23 04:05 [place] # (Auto) 0.3 x10^3/uL (0.3-0.8) 08/19/23 04:05 Eos # (Auto) 0.0 x10^3/uL (0.0-0.2) 08/19/23 04:05 Baso # (Auto) 0.0 X10^3/uL (0.0-0.1) 08/19/23 04:05 Absolute Nucleated RBC 0.0 /100WBC 08/19/23 04:05 Total Counted 100 08/19/23 04:05 Neutrophils % (Manual) 96 % (39-76) H 08/19/23 04:05 Lymphocytes % (Manual) 3 % (13-43) L 08/19/23 04:05 Monocytes % (Manual) 1 % (4-9) L 08/19/23 04:05 Eosinophils % (Manual) 1 % (0-6) 08/18/23 04:00 Plt Morphology Comment Normal (NORMAL) 08/19/23 04:05 RBC Morphology Normal (NORMAL) 08/19/23 04:05 Sample Site Rrad 08/17/23 23:17 ABG pH 7.440 (7.35-7.45) 08/17/23 23:17 ABG pCO2 34.0 mmHg (35.0-45.0) L 08/17/23 23:17 ABG pO2 66.0 mmHg (80.0-100.0) L 08/17/23 23:17 ABG HCO3 23.1 mmol/L (22-26) 08/17/23 23:17 ABG O2 Saturation 93.0 % (90-100) 08/17/23 23:17 ABG Base Excess -0.6 mmol/L (-2.0-2.0) 08/17/23 23:17 [place] Test Pos 08/17/23 23:17 A-a Gradient 41.0 mmHg 08/17/23 23:17 FiO2 21.0 08/17/23 23:17 Blood Gas Comments Erasmo abg well-mtf 08/17/23 23:17 Sodium 138 mmol/L (136-145) 08/19/23 04:05 Corrected Sodium 141 mmol/L (136-145) 08/19/23 04:05 Potassium 3.3 mmol/L (3.5-5.1) L 08/19/23 04:05 Chloride 101 mmol/L (98-107) 08/19/23 04:05 Carbon Dioxide 25.1 mmol/L (21-32) 08/19/23 04:05 BUN 26 mg/dL (7-18) H 08/19/23 04:05 Creatinine 1.05 mg/dL (0.70-1.30) 08/19/23 04:05 Est GFR (MDRD) Af Amer > 60 (>60) 08/19/23 04:05 Est GFR (MDRD) Non-Af > 60 (>60) 08/19/23 04:05 Glucose 237 mg/dL (65-99) H 08/19/23 04:05 POC Glucose (mg/dL) 239 mg/dL (65-99) H 08/19/23 06:04 Lactic Acid 1.7 mmol/L (0.4-2.0) 08/17/23 23:25 Calcium 8.2 mg/dL (8.5-10.1) L 08/19/23 04:05 Corrected Calcium 9.3 mg/dL (8.5-10.1) 08/19/23 04:05 Magnesium 2.1 mg/dL (2.0-2.9) 08/19/23 04:05 Total Bilirubin 0.60 mg/dL (0.2-1.0) 08/19/23 04:05 AST 14 Units/L (15-37) L 08/19/23 04:05 ALT < 6 Units/L (12-78) L 08/19/23 04:05 Alkaline Phosphatase 74 Units/L (46-116) 08/19/23 04:05 Total Protein 6.6 g/dL (6.4-8.2) 08/19/23 04:05 Albumin 2.6 g/dL (3.4-5.0) L 08/19/23 04:05 Globulin 4.0 g/dL (2.5-4.5) 08/19/23 04:05 Albumin/Globulin Ratio 0.7 Ratio (1.1-2.1) L 08/19/23 04:05 Specimen Type Clean catch urine 08/17/23 22:25 Urine Color Kath[place] (YELLOW) 08/17/23 22:25 Urine Appearance Clear (CLEAR) 08/17/23 22: Urine pH 5.0 (5.0 - 8.0) 08/17/23 22:[address] 1.020 (1.000-1.030) 08/17/23 22:25 Urine Protein 3+ (NEGATIVE) 08/17/23 22: Urine Glucose (UA) Negative (NEGATIVE) 08/17/23 22: Urine Ketones 1+ (NEGATIVE) 08/17/23 22: Urine Blood 1+ (NEGATIVE) 08/17/23 22: Urine Nitrite Negative (NEGATIVE) 08/17/23: Urine Bilirubin 1+ (NEGATIVE) 08/17/23: Urine Urobilinogen 1+ (NORMAL) 08/17/23: Ur Leukocyte Esterase 1+ (NEGATIVE) 08/17/23 22: Urine RBC 0-2 /HPF (0-3) 08/17/23 22: Urine WBC 0-2 /HPF (0-5) 08/17/23 22:25 Ur Squamous Epith Cells Few /HPF (NEGATIVE) 08/17/23 22:25 Urine Bacteria Trace /HPF (NEGATIVE) 08/17/23 22: Hyaline Casts Moderate /LPF (NEGATIVE) 08/17/23 22: Urine Mucus Few /HPF (NEGATIVE) 08/17/23 22:25 Ur Culture Indicated? No/not indicated 08/17/23 22:25 SARS-CoV-2 (PCR) Positive (NEGATIVE) A 08/17/23 21:05 Influenza Type A (PCR) Negative (NEGATIVE) 08/17/23 21:05 Influenza Type B (PCR) Negative (NEGATIVE) 08/17/23 21:05 RSV (PCR) Negative (NEGATIVE) 08/17/23 21:05 Plan (1) COVID-19 virus infection: Status: Acute (2) Pneumonia: Status: Acute Qualifiers: Pneumonia type: due to unspecified organism Laterality: bilateral Lung location: unspecified part of lung Qualified Code(s): J18.9 - Pneumonia, unspecified organism (3) Acute respiratory failure: Status: Acute Qualifiers: Respiratory failure complication: hypoxia Qualified Code(s): J96.01 - Acute respiratory failure with hypoxia (4) AMS (altered mental status): Status: Acute Qualifiers: Altered mental status type: disorientation Qualified Code(s): R41.0 - Disorientation, unspecified (5) Generalized weakness: Status: Acute (6) Frequent falls: Status: Acute (7) GERD (gastroesophageal reflux disease): Status: Chronic Qualifiers: Esophagitis presence: esophagitis presence not specified Qualified Code(s): K21.9 - Gastro-esophageal reflux disease without esophagitis (8) DM II (diabetes mellitus, type II), controlled: Status: Chronic Qualifiers: Diabetes mellitus longwall foreman insulin use: with longwall foreman use Diabetes mellitus complication status: with hyperglycemia Qualified Code(s): E11.65 - Type 2 diabetes mellitus with hyperglycemia; Z79.4 - senior production planner (current) use of insulin (9) Parkinson disease: Status: Acute Qualifiers: Dyskinesia presence: unspecified whether dyskinesia Fluctuating manifestations: unspecified whether manifestations fluctuate Qualified Code(s): G20.A1 - Parkinson's disease without dyskinesia, without mention of fluctuations
[2023-08-19] MEDS ORDERED: GLUCOPHAGE ONE (14:52)
[2023-08-19] MEDS ORDERED: ULTRAM PO PRN (16:14)
[2023-08-19] MEDS: TYLENOL 325 MG TAB PO PRN (20:28)
[2023-08-19] MEDS: MILK OF MAGNESIA PO SCH (21:39)
[2023-08-20] MEDS ORDERED: GLUCOPHAGE ONE (04:52)
[2023-08-20 05:31] LABS: BASOPHILS % (AUTO) 0.1 % (0.2-1.0); HEMATOCRIT 37.9 % (42.0-54.0); HEMOGLOBIN 12.8 g/dL (13.5-18.0); LYMPHOCYTES # (AUTO) 0.2 X10^3/uL (1.3-2.9); MEAN CORPUSCULAR HEMOGLOBIN 27.8 pg (27.0-34.0); MEAN CORPUSCULAR HGB CONC 33.7 g/dL (33.0-35.0); MEAN CORPUSCULAR VOLUME 82.5 fL (80.0-100.0); MEAN PLATELET VOLUME 8.3 fL (7.4-11.0); MONOCYTES # (AUTO) 0.4 x10^3/uL (0.3-0.8); MONOCYTES % (AUTO) 4.7 % (0.0-13.0); NEUTROPHILS # (AUTO) 7.7 x10^3/uL (2.2-4.8); NEUTROPHILS % (AUTO) 93.2 % (42.0-75.0); PLATELET COUNT 235 X10^3/uL (150.0-450.0); RED CELL DISTRIBUTION WIDTH 15.1 % (11.6-16.5); WHITE BLOOD COUNT 8.2 X10^3/uL (3.6-10.0)
[2023-08-20] MEDS: MILK OF MAGNESIA PO SCH (05:36)
[2023-08-20 05:56] LABS: ALANINE AMINOTRANSFERASE 9 Units/L (12-78); ALBUMIN 2.5 g/dL (3.4-5.0); ALKALINE PHOSPHATASE 64 Units/L (46-116); ASPARTATE AMINO TRANSFERASE 16 Units/L (15-37); BLOOD UREA NITROGEN 26 mg/dL (7-18); CALCIUM 7.9 mg/dL (8.5-10.1); CARBON DIOXIDE 27.3 mmol/L (21-32); CHLORIDE 104 mmol/L (98-107); COR CA(FOR HYPOALB) 9.1 mg/dL (8.5-10.1); COR NA(FOR HYPERGLY) 144 mmol/L (136-145); CREATININE 1.12 mg/dL (0.70-1.30); GLUCOSE 246 mg/dL (65-99); POTASSIUM 3.4 mmol/L (3.5-5.1); SODIUM 140 mmol/L (136-145); eGFR NON BLACK RACES > 60 (>60)
[2023-08-20 06:02] LABS: PLATELET MORPHOLOGY COMMENT NORMAL (NORMAL)
[2023-08-20] MEDS ORDERED: CONSULT PHARMACY - POTASSIUM & MAGNESIUM XX SCH (07:00)
[2023-08-20] MEDS ORDERED: VITAMIN D3 125 mcg (5,000 UNITS) PO SCH (09:00)
[2023-08-20 09:36] VITALS: BP 145/72; PULSE 82; RESP 18; TEMP 97.6
[2023-08-20] MEDS: K-DUR TAB 20 MEQ PO SCH (10:08)
[2023-08-20 10:16] VITALS: O2SAT 99
== END 2023-08-20 11:19 | disposition home or self-care (01) ==
LOC: ICU 19:30 → ER 19:30 → ICU 08-18 00:58
PROVIDERS: ADMIT Obstetrics & Gynecology Obstetrics; ATTEND Internal Medicine
DX: R40.4 Transient alteration of awareness; E87.6 Hypokalemia; E78.5 Hyperlipidemia, unspecified; R53.1 Weakness; Z79.4 Long term (current) use of insulin; R26.89 Other abnormalities of gait and mobility; J12.82 Pneumonia due to coronavirus disease 2019; E83.42 Hypomagnesemia; R29.6 Repeated falls; I10 Essential (primary) hypertension; E87.1 Hypo-osmolality and hyponatremia; Z59.41 Food insecurity; E11.65 Type 2 diabetes mellitus with hyperglycemia; J96.01 Acute respiratory failure with hypoxia; U07.1 COVID-19; K21.9 Gastro-esophageal reflux disease without esophagitis; G20.A1 Parkinson's disease without dyskinesia, without mention of fluctuations; Z59.86 Financial insecurity; R41.0 Disorientation, unspecified

== ENCOUNTER 2024-03-17 13:49 | Inpatient (IN) ==
--- NOTE | 2024-03-17 13:59 | EKG ---
Test Reason : chest pain Blood Pressure : */* mmHG Vent. Rate : 90 BPM Atrial Rate : 90 BPM P-R Int : 196 ms QRS Dur : 92 ms QT Int : 374 ms P-R-T Axes : 14 8 22 degrees QTc Int : 457 ms Normal sinus rhythm Normal ECG When compared with ECG of 15-AUG-2023 10:45, No significant change was found Confirmed by Tab Guardado MD ([id number]) on 03/19/2024 11:22:09 AM Referred By: Confirmed By: Tab Guardado MD
--- NOTE | 2024-03-17 14:03 | DR.CP ---
HPI Time Seen Time Seen by Provider: 03/17/24 14:02 Complaint Chief Complaint Doctor Comments: Gastric and lower midsternal chest pain for 2 days. Was seen in [place] yesterday and presumptively they ruled him out for heart problems. He said he developed more of the same discomfort today notes came over here for further evaluation. COVID-19 Coronavirus risk:travel/contact w/high risk person: No Has patient experienced Coronavirus symptoms: No Location Chest Pain Radiation Location: None Associated Signs and Symptoms Associated Signs and Symptoms: Shortness of Breath and Nausea/Vomiting PMH PMH Past Medical History: Diabetes Past Surgical History: Yes Surgical History: Other Family History Family Medical History: Diabetes Mellitus and Hypertension Social History Do you use any recreational Drugs:: No Travel Risk Coronavirus risk:travel/contact w/high risk person: No Has patient experienced Coronavirus symptoms: No ROS Review of Systems Constitutional: Other (Chest pain and epigastric pain) Eyes: No Symptoms Reported ENTM: No Symptoms Reported Respiratoy: No Symptoms Reported Cardiovascular: Chest Pain Gastrointestinal/Abdominal: No Symptoms Reported and Abdominal Pain (epigastric) Genitourinary: No Symptoms Reported Neurological: No Symptoms Reported Musculoskeletal: No Symptoms Reported Integumentary: No Symptoms Reported Hematologic/Lymphatic: No Symptoms Reported Endocrine: No Symptoms Reported Psychiatric: Depression PE Vitals Vitals: Vital Signs Temperature 98.2 F Pulse Rate 110 Pulse Rate 110 Pulse Rate 109 Pulse Rate 108 Pulse Rate 112 Pulse Rate 109 Pulse Rate 108 Pulse Rate 109 Pulse Rate 106 Pulse Rate 107 Pulse Rate 115 Pulse Rate 108 Pulse Rate 98 Pulse Rate 97 Pulse Rate 98 Pulse Rate 101 Pulse Rate 97 Pulse Rate 91 Pulse Rate 90 Pulse Rate 89 Respiratory Rate 25 Respiratory Rate 23 Respiratory Rate 24 Respiratory Rate 24 Respiratory Rate 26 Respiratory Rate 26 Respiratory Rate 26 Respiratory Rate 26 Respiratory Rate 24 Respiratory Rate 24 Respiratory Rate 24 Respiratory Rate 22 Respiratory Rate 27 Respiratory Rate 22 Respiratory Rate 22 Respiratory Rate 21 Blood Pressure 164/84 Blood Pressure 175/88 Blood Pressure 150/78 Blood Pressure 162/84 Blood Pressure 157/82 Blood Pressure 167/96 Blood Pressure 169/81 Blood Pressure 171/78 Blood Pressure 149/80 Blood Pressure 158/82 O2 Sat by Pulse Oximetry 97 O2 Sat by Pulse Oximetry 95 O2 Sat by Pulse Oximetry 95 O2 Sat by Pulse Oximetry 95 O2 Sat by Pulse Oximetry 95 O2 Sat by Pulse Oximetry 97 O2 Sat by Pulse Oximetry 93 O2 Sat by Pulse Oximetry 92 O2 Sat by Pulse Oximetry 90 O2 Sat by Pulse Oximetry 92 General General Appearance: In Distress (moderate distress) Head Head Exam: Normal Inspection, Atraumatic and Normocephalic Eyes Eye exam: Normal Appearance, PERRL and EOMI ENT ENT Exam: Normal Exam, Normal Oropharynx and Normal External Ear Exam Chest Chest Inspection: Normal Inspection, Symmetric Chest Wall Rise and Tenderness Respiratory Respiratory Exam: Other (Diminished breath sound bilateral lower lobe) Respiratory Exam: Bilateral: Decreased Breath Sounds (lower lobes) Abdominal Exam Abdominal Exam: Normal Inspection, Normal Bowel Sounds and Soft Extremities Extremities Exam: Normal Inspection and Full ROM Back Back Exam: Normal Inspection and Full ROM Neurologic Neurological Exam: Alert, Oriented X3 and CN II-XII Intact Psychiatric Psychiatric Exam: Depressed MDM Differential Diagnosis Differential Diagnosis: Angina, Chest Wall Pain, Myocardial Infarction and Pneumonia COURSE Treatment Treatment: Patient remained relatively stable during the ER visit. We did do the cardiac workup that was negative see troponin was less than 4 the EKG showed normal sinus rhythm this patient had a urine analysis done showed 2+ protein 2+ blood 2+ ketones 1+ bacteria. His chest x-ray showed cardiomegaly and bilateral pneumonia. Patient had a CBC that was done WC BC was 17.2 hemoglobin was 13.7 hematocrit was 36 platelet was 278 he had a metabolic panel done sodium was 136 potassium 3.7 chloride 95 CO2 30.2 BUN 18 creatinine 1.16 blood sugar was 232. Due to the high white count and the bilateral lung pneumonia there is the necessary to admit the patient for treatment. We did do blood cultures x 2 and we did a lactic acid level and the patient was given Rocephin 1 g in the ER. Contact was made with the on-call physician Dr. Yousif and he stated he was set the patient to admission but give the patient Levaquin 750 mg IV daily. We did call the case management utilization review and they said the patient will be put in for observation. The patient was told of the intent to put in the hospital for observation and he was agreeable to the observation ROR Labs Reviewed Laboratory Results Reviewed?: Yes 03/17/24 14:00 03/17/24 14:00 Laboratory: WBC 17.2 X10^3/uL (3.6-10.0) H 03/17/24 14:00 RBC 4.81 X10^6/uL (4.7-6.0) 03/17/24 14:00 Hgb 13.7 g/dL (13.5-18.0) 03/17/24 14:00 Hct 39.6 % (42.0-54.0) L 03/17/24 14:00 MCV 82.4 fL (80.0-100.0) 03/17/24 14:00 MCH 28.6 pg (27.0-34.0) 03/17/24 14:00 MCHC 34.7 g/dL (33.0-35.0) 03/17/24 14:00 RDW 14.6 % (11.6-16.5) 03/17/24 14:00 Plt Count 278 X10^3/uL (150.0-450.0) 03/17/24 14:00 Plt Count Comment Adequate (ADEQUATE) 03/17/24 14:00 MPV 8.5 fL (7.4-11.0) 03/17/24 14:00 Neut % (Auto) 92.4 % (42.0-75.0) H 03/17/24 14:00 Lymph % (Auto) 3.0 % (21.0-51.0) L 03/17/24 14:00 [place] % (Auto) 4.1 % (0.0-13.0) 03/17/24 14:00 Eos % (Auto) 0.1 % (0.9-2.9) L 03/17/24 14:00 Baso % (Auto) 0.4 % (0.2-1.0) 03/17/24 14:00 Neut # (Auto) 15.8 x10^3/uL (2.2-4.8) H 03/17/24 14:00 Lymph # (Auto) 0.5 X10^3/uL (1.3-2.9) L 03/17/24 14:00 [place] # (Auto) 0.7 x10^3/uL (0.3-0.8) 03/17/24 14:00 Eos # (Auto) 0.0 x10^3/uL (0.0-0.2) 03/17/24 14:00 Baso # (Auto) 0.1 X10^3/uL (0.0-0.1) 03/17/24 14:00 Absolute Nucleated RBC 0.0 /100WBC 03/17/24 14:00 Total Counted 100 03/17/24 14:00 Neutrophils % (Manual) 93 % (39-76) H 03/17/24 14:00 Lymphocytes % (Manual) 2 % (13-43) L 03/17/24 14:00 Monocytes % (Manual) 5 % (4-9) 03/17/24 14:00 Eosinophils % (Manual) 0 % (0-6) 03/17/24 14:00 Basophils % (Manual) 0 % (0-1) 03/17/24 14:00 Toxic Granulation Slight A 03/17/24 14:00 Plt Morphology Comment Normal (NORMAL) 03/17/24 14:00 RBC Morphology Normal (NORMAL) 03/17/24 14:00 Sodium 136 mmol/L (136-145) 03/17/24 14:00 Corrected Sodium 139 mmol/L (136-145) 03/17/24 14:00 Potassium 3.7 mmol/L (3.5-5.1) 03/17/24 14:00 Chloride 95 mmol/L (98-107) L 03/17/24 14:00 Carbon Dioxide 30.2 mmol/L (21-32) 03/17/24 14:00 BUN 19 mg/dL (7-18) H 03/17/24 14:00 Creatinine 1.16 mg/dL (0.70-1.30) 03/17/24 14:00 Est GFR (MDRD) Af Amer > 60 (>60) 03/17/24 14:00 Est GFR (MDRD) Non-Af > 60 (>60) 03/17/24 14:00 Glucose 232 mg/dL (65-99) H 03/17/24 14:00 Lactic Acid 1.7 mmol/L (0.4-2.0) 03/17/24 16:37 Calcium 9.6 mg/dL (8.5-10.1) 03/17/24 14:00 Corrected Calcium TNP 03/17/24 14:00 Total Bilirubin 1.10 mg/dL (0.2-1.0) H 03/17/24 14:00 AST 13 Units/L (15-37) L 03/17/24 14:00 ALT 7 Units/L (12-78) L 03/17/24 14:00 Alkaline Phosphatase 119 Units/L (46-116) H 03/17/24 14:00 Troponin I High Sens 5.1 ng/L (4.0-60.0) 03/17/24 14:00 Total Protein 8.1 g/dL (6.4-8.2) 03/17/24 14:00 Albumin 3.9 g/dL (3.4-5.0) 03/17/24 14:00 Globulin 4.2 g/dL (2.5-4.5) 03/17/24 14:00 Albumin/Globulin Ratio 0.9 Ratio (1.1-2.1) L 03/17/24 14:00 Specimen Type Clean catch urine 03/17/24 14:50 Urine Color Pale yellow (YELLOW) 03/17/24 14:50 Urine Appearance Clear (CLEAR) 03/17/24 14:50 Urine pH 6.5 (5.0 - 8.0) 03/17/24 14:50 Ur Specific [place] 1.015 (1.000-1.030) 03/17/24 14:50 Urine Protein 2+ (NEGATIVE) 03/17/24 14:50 Urine Glucose (UA) 2+ (NEGATIVE) 03/17/24 14:50 Urine Ketones 2+ (NEGATIVE) 03/17/24 14:50 Urine Blood 2+ (NEGATIVE) 03/17/24 14:50 Urine Nitrite Negative (NEGATIVE) 03/17/24 14:50 Urine Bilirubin Negative (NEGATIVE) 03/17/24 14:50 Urine Urobilinogen Normal (NORMAL) 03/17/24 14:50 Ur Leukocyte Esterase Negative (NEGATIVE) 03/17/24 14:50 Urine RBC 0-2 /HPF (0-3) 03/17/24 14:50 Urine WBC 0-2 /HPF (0-5) 03/17/24 14:50 Ur Squamous Epith Cells Rare /HPF (NEGATIVE) 03/17/24 14:50 Urine Bacteria 1+ /HPF (NEGATIVE) 03/17/24 14:50 Urine Mucus Rare /HPF (NEGATIVE) 03/17/24 14:50 Ur Culture Indicated? No/not indicated 03/17/24 14:50 SARS-CoV-2 (PCR) Negative (NEGATIVE) 03/17/24 14:32 Influenza Type A (PCR) Negative (NEGATIVE) 03/17/24 14:32 Influenza Type B (PCR) Negative (NEGATIVE) 03/17/24 14:32 RSV (PCR) Negative (NEGATIVE) 03/17/24 14:32 Opioid Opioid Risk Tool Age (Fly box if 16-45): No History of Preadolescent Sexual Abuse: No Total: 0 Total Score Risk Category: Low Risk Copyright: [facility] predicting aberrant behaviors Discharge Plan Diagnosis Discharge Problem: Bilateral pneumonia, Atypical chest pain Discharge Plan Patient Disposition: ADMITTED INPATIENT Condition: Stable Prescriptions: No Action metformin 500 mg tablet 500 mg PO TID carbidopa-levodopa 25-250 mg tablet 1 tab PO BID simvastatin 40 mg tablet 40 mg PO QPM losartan-hydrochlorothiazide 100-25 mg tablet 1 tab PO QDAY tamsulosin 0.4 mg capsule 0.4 mg PO QPM amlodipine 10 mg tablet 10 mg PO QPM omeprazole 20 mg capsule,delayed release(DR/EC) 20 mg PO QDAY Health Concerns: Post Hospitalization: new medications and changes needed to prevent readmission or further decline. Pt educated and given instructions on all concerns. Plan of Treatment: Continue with present treatment and follow up plan. Pt is to keep follow up appointment as instructed and take medications as ordered. Orders to Discharge Patient Discharge Orders: Transfer (Routine); Ordered 03/17/24 Ordered By: Joseph De La Cruz Follow ups/Referrals Follow ups/Referrals: MYESHA ALBERT [Primary Care Provider] - 3 days Instructions Stand Alone Forms: Post Hospital Follow Up Care
[2024-03-17] MEDS: ASPIRIN PO ONE (14:30)
[2024-03-17 14:41] LABS: BASOPHILS # (AUTO) 0.1 X10^3/uL (0.0-0.1); BASOPHILS % (AUTO) 0.4 % (0.2-1.0); EOSINOPHILS % (AUTO) 0.1 % (0.9-2.9); HEMATOCRIT 39.6 % (42.0-54.0); HEMOGLOBIN 13.7 g/dL (13.5-18.0); LYMPHOCYTES # (AUTO) 0.5 X10^3/uL (1.3-2.9); MEAN CORPUSCULAR HEMOGLOBIN 28.6 pg (27.0-34.0); MEAN CORPUSCULAR HGB CONC 34.7 g/dL (33.0-35.0); MEAN CORPUSCULAR VOLUME 82.4 fL (80.0-100.0); MEAN PLATELET VOLUME 8.5 fL (7.4-11.0); MONOCYTES # (AUTO) 0.7 x10^3/uL (0.3-0.8); MONOCYTES % (AUTO) 4.1 % (0.0-13.0); NEUTROPHILS # (AUTO) 15.8 x10^3/uL (2.2-4.8); NEUTROPHILS % (AUTO) 92.4 % (42.0-75.0); PLATELET COUNT 278 X10^3/uL (150.0-450.0); RED BLOOD COUNT 4.81 X10^6/uL (4.7-6.0); RED CELL DISTRIBUTION WIDTH 14.6 % (11.6-16.5); WHITE BLOOD COUNT 17.2 X10^3/uL (3.6-10.0)
[2024-03-17 14:54] LABS: ALANINE AMINOTRANSFERASE 7 Units/L (12-78); ALBUMIN 3.9 g/dL (3.4-5.0); ALKALINE PHOSPHATASE 119 Units/L (46-116); ASPARTATE AMINO TRANSFERASE 13 Units/L (15-37); BLOOD UREA NITROGEN 19 mg/dL (7-18); CALCIUM 9.6 mg/dL (8.5-10.1); CARBON DIOXIDE 30.2 mmol/L (21-32); CHLORIDE 95 mmol/L (98-107); COR NA(FOR HYPERGLY) 139 mmol/L (136-145); CREATININE 1.16 mg/dL (0.70-1.30); GLUCOSE 232 mg/dL (65-99); POTASSIUM 3.7 mmol/L (3.5-5.1); SODIUM 136 mmol/L (136-145); TOTAL PROTEIN 8.1 g/dL (6.4-8.2); eGFR NON BLACK RACES > 60 (>60)
[2024-03-17 15:00] LABS: BILIRUBIN,URINE NEGATIVE (NEGATIVE); BLOOD/HEMOGLOBIN,URINE 2+ (NEGATIVE); GLUCOSE, URINE 2+ (NEGATIVE); KETONES,URINE 2+ (NEGATIVE); LEUKOCYTE ESTERASE ,URINE NEGATIVE (NEGATIVE); NITRITES,URINE NEGATIVE (NEGATIVE); PH,URINE 6.5 (5.0 - 8.0); PROTEIN,URINE 2+ (NEGATIVE); UROBILINOGEN,URINE NORMAL (NORMAL)
[2024-03-17 15:03] LABS: APPEARANCE,URINE CLEAR (CLEAR); COLOR,URINE PALE YELLOW (YELLOW)
[2024-03-17] MEDS: ZOFRAN INJ 4 MG VIAL IVP ONE (15:06)
[2024-03-17] MEDS: MORPHINE SULFATE INJ 2 MG INJ IVP ONE (15:07)
[2024-03-17 15:08] LABS: BACTERIA,URINE 1+ /HPF (NEGATIVE); RBC,URINE 0-2 /HPF (0-3); SQUAMOUS EPITHELIAL CELL,UR RARE /HPF (NEGATIVE)
[2024-03-17 15:15] LABS: BASOPHILS % (MANUAL) 0 % (0-1); PLATELET MORPHOLOGY COMMENT NORMAL (NORMAL); TOXIC GRANULATION SLIGHT
--- NOTE | 2024-03-17 16:23 | RAD ---
EXAM:CHEST, 1 VIEWHISTORY:chest pain;COMPARISON:03/16/2024FINDINGS:The lungs are not well inflated. As a result, there are hypoventilatory changes in the bases. Vague areas of abnormal opacity are present in the left mid lung and right upper lung, new since previous study. This could be pneumonia.Elevation of right hemidiaphragm. No significant pleural effusion.Heart size is normal. Atherosclerotic calcifications are present in the aorta.The bones are unremarkable.EKG leads are noted.IMPRESSION:1. Findings suggesting new bilateral pneumoniaTHIS IS AN ELECTRONICALLY VERIFIED FINAL [id number]/17/2024 4:19 PM - Electronically signed by Joe Bagley MD
--- NOTE | 2024-03-17 16:28 | CT ---
EXAM: ABDOMEN/PELVIS W/O CON 2:42 p.m. HISTORY: Abdominal distention, chest pain; COMPARISON: CT chest abdomen pelvis w/contrast 03/17/2024 [facility] 1:34 a.m. TECHNIQUE: Multiple CT axial images of the abdomen and pelvis were obtained without IV contrast. Coronal and sag ittal images were reconstructed. Dose reduction techniques included Automated Exposure Control (AEC) and adjustment of mA and kV. FINDINGS: Few linear areas in the lung bases are probably atelectasis, not changed from 13 hours ago The liver is normal in size and configuration. Partially calcified gallstones are present with no fritz rrounding inflammation. The spleen is normal in size and shape. The adrenal glands are normal. The pancreas is normal. Contrast is present in nondilated urinary collecting system. Water density renal masses are likely c ysts. No filling defect in the bladder. No bladder wall thickening or perivesical edema. The bowel is not dilated. There is no wall thickening in the bowel or edema around the bowel. The ap pendix is normal in size with no inflammation around it. No evidence of appendicitis. There are dive rticula in the colon. But there is no wall thickening or pericolonic edema to suggest acute diverticu litis. There is a right inguinal hernia containing small bowel. No inflammation or fluid at the site. This was not present on the study from 13 hours ago. There is also a left inguinal hernia containing fat , unchanged. IMPRESSION: 1. Interval development of right inguinal hernia containing small bowel 2. No bowel obstruction or free air 3. Cholelithiasis 4. Stable basilar atelectasis 5. Colonic diverticula THIS IS AN ELECTRONICALLY VERIFIED FINAL REPORT 03/17/2024 4:25 PM - Electronically signed by Joe Bagley MD
[2024-03-17] MEDS: ROCEPHIN VIAL 1 GRAM IVP ONE (17:31)
[2024-03-17] MEDS: DUONEB 0.5 MG/3 MG (3 mL) NEB SCH (20:46)
[2024-03-17] MEDS: PULMICORT NEB TX 0.5 MG NEB SCH (20:46)
[2024-03-17] MEDS ORDERED: GLUCOPHAGE ONE (21:58)
[2024-03-17] MEDS: SINEMET (PLAIN) 25/250 MG PO SCH (22:12)
[2024-03-17] MEDS: GLUCOPHAGE PO SCH (22:12)
[2024-03-17] MEDS: NORVASC TAB 10 MG PO SCH (22:12)
[2024-03-17] MEDS: ZOCOR TAB 40 MG PO SCH (22:12)
[2024-03-17] MEDS: FLOMAX PO SCH (22:13)
[2024-03-17 22:39] VITALS: BMI 26.0
[2024-03-17] MEDS: NS 1,000 ML IV 1,000 ML IV SCH (23:12)
[2024-03-17] MEDS: NovoLIN R (or HumuLIN R) SUBCUT PRN (23:17)
[2024-03-18] MEDS: ROCEPHIN VIAL 1 GRAM ONE (05:54)
[2024-03-18 06:38] LABS: BASOPHILS # (AUTO) 0.1 X10^3/uL (0.0-0.1); BASOPHILS % (AUTO) 0.5 % (0.2-1.0); HEMATOCRIT 39.5 % (42.0-54.0); HEMOGLOBIN 13.5 g/dL (13.5-18.0); LYMPHOCYTES # (AUTO) 0.7 X10^3/uL (1.3-2.9); LYMPHOCYTES % (AUTO) 3.2 % (21.0-51.0); MEAN CORPUSCULAR HEMOGLOBIN 28.3 pg (27.0-34.0); MEAN CORPUSCULAR HGB CONC 34.3 g/dL (33.0-35.0); MEAN CORPUSCULAR VOLUME 82.4 fL (80.0-100.0); MEAN PLATELET VOLUME 8.4 fL (7.4-11.0); MONOCYTES # (AUTO) 1.5 x10^3/uL (0.3-0.8); MONOCYTES % (AUTO) 6.7 % (0.0-13.0); NEUTROPHILS # (AUTO) 19.9 x10^3/uL (2.2-4.8); NEUTROPHILS % (AUTO) 89.6 % (42.0-75.0); PLATELET COUNT 242 X10^3/uL (150.0-450.0); RED BLOOD COUNT 4.79 X10^6/uL (4.7-6.0); RED CELL DISTRIBUTION WIDTH 14.5 % (11.6-16.5); WHITE BLOOD COUNT 22.3 X10^3/uL (3.6-10.0)
[2024-03-18 06:59] LABS: ALANINE AMINOTRANSFERASE < 6 Units/L (12-78); ALBUMIN 3.3 g/dL (3.4-5.0); ALKALINE PHOSPHATASE 108 Units/L (46-116); ASPARTATE AMINO TRANSFERASE 16 Units/L (15-37); BLOOD UREA NITROGEN 14 mg/dL (7-18); CALCIUM 9.6 mg/dL (8.5-10.1); CARBON DIOXIDE 29.4 mmol/L (21-32); CHLORIDE 96 mmol/L (98-107); COR CA(FOR HYPOALB) 10.2 mg/dL (8.5-10.1); COR NA(FOR HYPERGLY) 137 mmol/L (136-145); CREATININE 1.09 mg/dL (0.70-1.30); GLUCOSE 203 mg/dL (65-99); MAGNESIUM 1.8 mg/dL (2.0-2.9); POTASSIUM 4.2 mmol/L (3.5-5.1); SODIUM 135 mmol/L (136-145); TOTAL PROTEIN 7.4 g/dL (6.4-8.2); eGFR NON BLACK RACES > 60 (>60)
[2024-03-18 07:41] LABS: PLATELET MORPHOLOGY COMMENT NORMAL (NORMAL)
[2024-03-18] MEDS ORDERED: CONSULT PHARMACY - POTASSIUM & MAGNESIUM XX SCH ×2 (08:00→16:00)
[2024-03-18] MEDS: LEVAQUIN PREMIX IV 750 MG 750 MG/150 ML BAG IV SCH (09:01)
[2024-03-18] MEDS: MAG-OX TAB PO SCH (09:49)
[2024-03-18] MEDS: MAGNESIUM SULFATE 1 GRAM/100 mL PREMIX 1 G/100 ML BAG IV SCH (09:57)
[2024-03-18] MEDS: HYZAAR 50/12.5 MG PO SCH (10:19)
[2024-03-18] MEDS: PriLOSEC PO SCH (10:19)
[2024-03-18] MEDS: TYLENOL SUPP 650 MG PR PRN (13:14)
[2024-03-18] MEDS: ZOSYN VIAL 3.375 GRAMS 3.375 G in NS 100 ML IV 100 ML IV SCH (15:18)
[2024-03-18] MEDS ORDERED: MOTRIN TAB 800 MG PO ONE (17:12)
[2024-03-18] MEDS: MOTRIN TAB 800 MG PO PRN (17:54)
[2024-03-18] MEDS: SNACK - Diabetic Appropriate PO SCH (20:07)
[2024-03-18] MEDS: TYLENOL 325 MG TAB PO PRN (21:21)
[2024-03-18] MEDS ORDERED: NS 250 ML IV 250 ML IV ONE (21:49)
[2024-03-18] MEDS: NS 250 ML IV 25 ML IV PRN (21:56)
[2024-03-19] MEDS: COLACE CAP 100 MG PO PRN (05:33)
[2024-03-19] MEDS: MILK OF MAGNESIA PO PRN (05:33)
[2024-03-19] MEDS: GLUCOPHAGE ONE (05:56)
[2024-03-19 06:23] LABS: BASOPHILS % (AUTO) 0.2 % (0.2-1.0); EOSINOPHILS % (AUTO) 0.1 % (0.9-2.9); HEMATOCRIT 36.4 % (42.0-54.0); HEMOGLOBIN 12.5 g/dL (13.5-18.0); LYMPHOCYTES # (AUTO) 0.4 X10^3/uL (1.3-2.9); LYMPHOCYTES % (AUTO) 1.5 % (21.0-51.0); MEAN CORPUSCULAR HEMOGLOBIN 28.5 pg (27.0-34.0); MEAN CORPUSCULAR HGB CONC 34.4 g/dL (33.0-35.0); MEAN CORPUSCULAR VOLUME 82.7 fL (80.0-100.0); MEAN PLATELET VOLUME 8.1 fL (7.4-11.0); MONOCYTES # (AUTO) 0.8 x10^3/uL (0.3-0.8); MONOCYTES % (AUTO) 3.6 % (0.0-13.0); NEUTROPHILS # (AUTO) 21.9 x10^3/uL (2.2-4.8); NEUTROPHILS % (AUTO) 94.6 % (42.0-75.0); PLATELET COUNT 193 X10^3/uL (150.0-450.0); RED CELL DISTRIBUTION WIDTH 14.9 % (11.6-16.5); WHITE BLOOD COUNT 23.1 X10^3/uL (3.6-10.0)
[2024-03-19 06:42] LABS: ALANINE AMINOTRANSFERASE 6 Units/L (12-78); ALBUMIN 2.6 g/dL (3.4-5.0); ALKALINE PHOSPHATASE 99 Units/L (46-116); ASPARTATE AMINO TRANSFERASE 22 Units/L (15-37); BLOOD UREA NITROGEN 17 mg/dL (7-18); CALCIUM 9.1 mg/dL (8.5-10.1); CARBON DIOXIDE 30.5 mmol/L (21-32); CHLORIDE 98 mmol/L (98-107); COR CA(FOR HYPOALB) 10.2 mg/dL (8.5-10.1); COR NA(FOR HYPERGLY) 137 mmol/L (136-145); CREATININE 1.32 mg/dL (0.70-1.30); GLUCOSE 183 mg/dL (65-99); POTASSIUM 3.9 mmol/L (3.5-5.1); SODIUM 135 mmol/L (136-145); TOTAL PROTEIN 6.6 g/dL (6.4-8.2); eGFR NON BLACK RACES 55 (>60)
[2024-03-19 07:09] LABS: PLATELET MORPHOLOGY COMMENT NORMAL (NORMAL)
[2024-03-19] MEDS ORDERED: MAALOX or MYLANTA PO PRN (08:55)
[2024-03-19] MEDS: MOTRIN TAB 800 MG PO SCH (13:27)
[2024-03-19] MEDS ORDERED: GLUCOPHAGE ONE ×2 (13:33→21:09)
[2024-03-19] MEDS ORDERED: PHARMACY CONSULT - VANCOMYCIN XX SCH (16:00)
[2024-03-19] MEDS: VANCOMYCIN IV *PREMIX 1.25 G/250 ML BAG 1.25 G/250 ML PIGGYBACK IV SCH (17:53)
[2024-03-19] MEDS: TYLENOL 500 MG TAB EXTRA STRENGTH PO SCH (17:59)
[2024-03-19] MEDS ORDERED: TYLENOL 500 MG TAB EXTRA STRENGTH PO PRN (19:19)
[2024-03-19] MEDS ORDERED: ZOSYN VIAL 3.375 GRAMS 3.375 G in NS 100 ML IV 100 ML IV SCH (21:00)
[2024-03-19] MEDS: ZOSYN VIAL 3.375 GRAMS 3.375 G in NS 100 ML IV 100 ML IV SCH (21:32)
[2024-03-19] MEDS: MOTRIN TAB 800 MG PO PRN (22:08)
[2024-03-20 04:29] LABS: BASOPHILS % (AUTO) 0.2 % (0.2-1.0); EOSINOPHILS % (AUTO) 0.1 % (0.9-2.9); HEMATOCRIT 31.1 % (42.0-54.0); HEMOGLOBIN 10.9 g/dL (13.5-18.0); LYMPHOCYTES # (AUTO) 0.3 X10^3/uL (1.3-2.9); LYMPHOCYTES % (AUTO) 1.7 % (21.0-51.0); MEAN CORPUSCULAR HEMOGLOBIN 28.8 pg (27.0-34.0); MEAN CORPUSCULAR VOLUME 82.2 fL (80.0-100.0); MEAN PLATELET VOLUME 8.1 fL (7.4-11.0); MONOCYTES # (AUTO) 0.6 x10^3/uL (0.3-0.8); MONOCYTES % (AUTO) 3.3 % (0.0-13.0); NEUTROPHILS # (AUTO) 16.7 x10^3/uL (2.2-4.8); NEUTROPHILS % (AUTO) 94.7 % (42.0-75.0); PLATELET COUNT 179 X10^3/uL (150.0-450.0); RED BLOOD COUNT 3.79 X10^6/uL (4.7-6.0); RED CELL DISTRIBUTION WIDTH 14.9 % (11.6-16.5); WHITE BLOOD COUNT 17.7 X10^3/uL (3.6-10.0)
[2024-03-20 04:35] LABS: ALANINE AMINOTRANSFERASE 7 Units/L (12-78); ALBUMIN 2.1 g/dL (3.4-5.0); ALKALINE PHOSPHATASE 81 Units/L (46-116); ASPARTATE AMINO TRANSFERASE 18 Units/L (15-37); BLOOD UREA NITROGEN 21 mg/dL (7-18); CALCIUM 8.4 mg/dL (8.5-10.1); CARBON DIOXIDE 27.7 mmol/L (21-32); CHLORIDE 98 mmol/L (98-107); COR CA(FOR HYPOALB) 9.9 mg/dL (8.5-10.1); COR NA(FOR HYPERGLY) 136 mmol/L (136-145); CREATININE 1.34 mg/dL (0.70-1.30); GLUCOSE 189 mg/dL (65-99); POTASSIUM 3.3 mmol/L (3.5-5.1); SODIUM 134 mmol/L (136-145); TOTAL PROTEIN 5.9 g/dL (6.4-8.2); eGFR NON BLACK RACES 54 (>60)
[2024-03-20 05:15] LABS: PLATELET MORPHOLOGY COMMENT NORMAL (NORMAL)
[2024-03-20] MEDS ORDERED: GLUCOPHAGE ONE ×3 (05:28→20:21)
[2024-03-20] MEDS ORDERED: CONSULT PHARMACY - POTASSIUM & MAGNESIUM XX SCH (07:00)
--- NOTE | 2024-03-20 07:17 | RAD ---
EXAMINATION:CHEST, 1 VIEWHISTORY:Pneumonia; DM, HTN, PARKINSON'S, PROSTATE CA .COMPARISON STUDY:Chest x-ray 03/17/2024TECHNIQUE:Single portable AP view chestFINDINGS:Lungs are expanded. Patchy alveolar infiltrates scattered throughout the left lung, right perihilar region. Mild elevation right hemidiaphragm. Mild cardiac silhouette enlargement. Normal pulmonary vascular pattern. Bones are intact.IMPRESSION:Patchy alveolar infiltrates in both lungs. Cardiac silhouette enlargement. Mild elevation right hemidiaphragm.THIS IS AN ELECTRONICALLY VERIFIED FINAL [id number]/20/2024 7:14 AM - Electronically signed by Samantha Thompson MD
[2024-03-20] MEDS: K-DUR TAB 20 MEQ PO SCH (08:13)
[2024-03-20] MEDS: LOVENOX INJ 40 MG SYR SC SCH (09:19)
[2024-03-20] MEDS: MILK OF MAGNESIA PO SCH (13:29)
[2024-03-20] MEDS: DULCOLAX SUPPOSITORY 10 MG RECTAL ONE (13:50)
[2024-03-20] MEDS: COLACE CAP 100 MG PO SCH (13:50)
[2024-03-21] MEDS ORDERED: GLUCOPHAGE ONE ×2 (05:19→20:29)
[2024-03-21 05:54] LABS: BASOPHILS % (AUTO) 0.3 % (0.2-1.0); EOSINOPHILS # (AUTO) 0.3 x10^3/uL (0.0-0.2); EOSINOPHILS % (AUTO) 2.1 % (0.9-2.9); HEMATOCRIT 29.9 % (42.0-54.0); HEMOGLOBIN 10.2 g/dL (13.5-18.0); LYMPHOCYTES # (AUTO) 0.2 X10^3/uL (1.3-2.9); MEAN CORPUSCULAR HEMOGLOBIN 28.4 pg (27.0-34.0); MEAN CORPUSCULAR HGB CONC 34.1 g/dL (33.0-35.0); MEAN CORPUSCULAR VOLUME 83.4 fL (80.0-100.0); MEAN PLATELET VOLUME 8.3 fL (7.4-11.0); MONOCYTES # (AUTO) 0.8 x10^3/uL (0.3-0.8); MONOCYTES % (AUTO) 6.4 % (0.0-13.0); NEUTROPHILS # (AUTO) 10.9 x10^3/uL (2.2-4.8); NEUTROPHILS % (AUTO) 89.2 % (42.0-75.0); PLATELET COUNT 209 X10^3/uL (150.0-450.0); RED BLOOD COUNT 3.59 X10^6/uL (4.7-6.0); RED CELL DISTRIBUTION WIDTH 14.7 % (11.6-16.5); WHITE BLOOD COUNT 12.2 X10^3/uL (3.6-10.0)
[2024-03-21 06:17] LABS: ALANINE AMINOTRANSFERASE 9 Units/L (12-78); ALBUMIN 1.9 g/dL (3.4-5.0); ALKALINE PHOSPHATASE 102 Units/L (46-116); ASPARTATE AMINO TRANSFERASE 21 Units/L (15-37); BLOOD UREA NITROGEN 27 mg/dL (7-18); CALCIUM 8.1 mg/dL (8.5-10.1); CARBON DIOXIDE 25.6 mmol/L (21-32); CHLORIDE 101 mmol/L (98-107); COR CA(FOR HYPOALB) 9.8 mg/dL (8.5-10.1); COR NA(FOR HYPERGLY) 136 mmol/L (136-145); CREATININE 1.38 mg/dL (0.70-1.30); GLUCOSE 152 mg/dL (65-99); POTASSIUM 3.8 mmol/L (3.5-5.1); SODIUM 135 mmol/L (136-145); TOTAL PROTEIN 5.7 g/dL (6.4-8.2); eGFR NON BLACK RACES 52 (>60)
--- NOTE | 2024-03-21 10:44 | PCM.PROG ---
Progress Note Progress Note for Day of Date of Exam: 03/20/24 Subjective Subjective: Hermelindo Zimmerman is a patient who presents with complaints of having fallen recently and is experiencing shortness of breath. He reports that he has been feeling unwell and specifically mentions chest pain, stating that it hurts in the chest area if pressed. He describes the onset of his symptoms as relatively recent, indicating that he has been feeling bad and short of breath 'right now.' He has had a bowel movement, which he shared during the assessment. Denies any persistent issues prior to this, including lack of heart disease, diabetes, or high blood pressure, but does indicate he has type 2 diabetes and is unsure about his cholesterol levels. He indicates no recent changes in m edications or lifestyle. The doctor indicates that a chest x-ray shows bilateral pneumonia, and plans to initiate IV antibiotics and breathing treatments. Hermelindo lives independently but is considering halfway placement. There is no specific mention of support from family or friends documented in the visit. He denies use of tobacco, alcohol, or illicit drugs, and does not provide specific details about occupation at this time. Past Medical Family Social History Allergies: Allergies No Known Allergies Allergy (Verified 08/15/23 11:11) Review of Systems ROS: No change since H&P and Changes notes (describe) Vital Signs and I&O's Vital Signs: Vital Signs Temperature 97.4 F Temperature 98.1 F Pulse Rate [Brachial] 92 Pulse Rate [Brachial] 92 Pulse Rate 92 Respiratory Rate 20 Respiratory Rate 18 Blood Pressure [Left Arm] 126/60 Blood Pressure [Left Arm] 145/42 O2 Sat by Pulse Oximetry 94 O2 Sat by Pulse Oximetry 94 O2 Sat by Pulse Oximetry 93 Intake and Output: Intake & Output 03/18/24 03/19/24 03/20/24 03/21/24 11:59 11:59 11:59 11:59 Intake Total 250 / 250 1610 / 1610 5031 / 5031 2946 / 2946 Output Total 120 / 120 150 / 150 100 / 100 Balance 130 / 130 1460 / 1460 4931 / 4931 2946 / 2946 Physical Exam Oriented: Normal, Time, Person and Place Eyes: Normal Ear: Normal Nose: Normal Throat: Normal Respiratory: Right, Left, Diminished, Wheezes and Rhonchi Cardiovascular: Normal Auscultation: Bowel Sounds: Normal Palpation: Normal Tenderness: Normal Skin: Normal Musculoskeletal: Normal Psychiatric: Normal, Anxiety and Depression Mood Description: Calm Affect: Normal Speech Pattern: Clear and Appropriate Laboratory and Diagnostics 03/21/24 05:34 03/21/24 05:34 Labs: 03/18/24 13:05 Blood Blood Culture - Preliminary 03/18/24 12:49 Blood Blood Culture - Preliminary 03/17/24 16:58 Blood Blood Culture - Preliminary 03/17/24 16:50 Blood Blood Culture - Preliminary Laboratory WBC 12.2 X10^3/uL (3.6-10.0) H 03/21/24 05:34 RBC 3.59 X10^6/uL (4.7-6.0) L 03/21/24 05:34 Hgb 10.2 g/dL (13.5-18.0) L 03/21/24 05:34 Hct 29.9 % (42.0-54.0) L 03/21/24 05:34 MCV 83.4 fL (80.0-100.0) 03/21/24 05:34 MCH 28.4 pg (27.0-34.0) 03/21/24 05:34 MCHC 34.1 g/dL (33.0-35.0) 03/21/24 05:34 RDW 14.7 % (11.6-16.5) 03/21/24 05:34 Plt Count 209 X10^3/uL (150.0-450.0) 03/21/24 05:34 Plt Count Comment Adequate (ADEQUATE) 03/20/24 04:08 MPV 8.3 fL (7.4-11.0) 03/21/24 05:34 Neut % (Auto) 89.2 % (42.0-75.0) H 03/21/24 05:34 Lymph % (Auto) 2.0 % (21.0-51.0) L 03/21/24 05:34 [place] % (Auto) 6.4 % (0.0-13.0) 03/21/24 05:34 Eos % (Auto) 2.1 % (0.9-2.9) 03/21/24 05:34 Baso % (Auto) 0.3 % (0.2-1.0) 03/21/24 05:34 Neut # (Auto) 10.9 x10^3/uL (2.2-4.8) H 03/21/24 05:34 Lymph # (Auto) 0.2 X10^3/uL (1.3-2.9) L 03/21/24 05:34 [place] # (Auto) 0.8 x10^3/uL (0.3-0.8) 03/21/24 05:34 Eos # (Auto) 0.3 x10^3/uL (0.0-0.2) H 03/21/24 05:34 Baso # (Auto) 0.0 X10^3/uL (0.0-0.1) 03/21/24 05:34 Absolute Nucleated RBC 0.0 /100WBC 03/21/24 05:34 Total Counted 100 03/20/24 04:08 Neutrophils % (Manual) 97 % (39-76) H 03/20/24 04:08 Lymphocytes % (Manual) 2 % (13-43) L 03/20/24 04:08 Monocytes % (Manual) 1 % (4-9) L 03/20/24 04:08 Eosinophils % (Manual) 0 % (0-6) 03/17/24 14:00 Basophils % (Manual) 0 % (0-1) 03/17/24 14:00 Toxic Granulation Slight A 03/17/24 14:00 Plt Morphology Comment Normal (NORMAL) 03/20/24 04:08 RBC Morphology Normal (NORMAL) 03/20/24 04:08 Sodium 135 mmol/L (136-145) L 03/21/24 05:34 Corrected Sodium 136 mmol/L (136-145) 03/21/24 05:34 Potassium 3.8 mmol/L (3.5-5.1) 03/21/24 05:34 Chloride 101 mmol/L (98-107) 03/21/24 05:34 Carbon Dioxide 25.6 mmol/L (21-32) 03/21/24 05:34 BUN 27 mg/dL (7-18) H 03/21/24 05:34 Creatinine 1.38 mg/dL (0.70-1.30) H 03/21/24 05:34 Est GFR (MDRD) Af Amer > 60 (>60) 03/21/24 05:34 Est GFR (MDRD) Non-Af 52 (>60) L 03/21/24 05:34 Glucose 152 mg/dL (65-99) H 03/21/24 05:34 POC Glucose (mg/dL) 149 mg/dL (65-99) H 03/21/24 05:33 Lactic Acid 1.7 mmol/L (0.4-2.0) 03/20/24 04:08 Calcium 8.1 mg/dL (8.5-10.1) L 03/21/24 05:34 Corrected Calcium 9.8 mg/dL (8.5-10.1) 03/21/24 05:34 Magnesium 2.2 mg/dL (2.0-2.9) 03/20/24 04:08 Total Bilirubin 1.00 mg/dL (0.2-1.0) 03/21/24 05:34 AST 21 Units/L (15-37) 03/21/24 05:34 ALT 9 Units/L (12-78) L 03/21/24 05:34 Alkaline Phosphatase 102 Units/L (46-116) 03/21/24 05:34 Troponin I High Sens 5.1 ng/L (4.0-60.0) 03/17/24 14:00 Total Protein 5.7 g/dL (6.4-8.2) L 03/21/24 05:34 Albumin 1.9 g/dL (3.4-5.0) L 03/21/24 05:34 Globulin 3.8 g/dL (2.5-4.5) 03/21/24 05:34 Albumin/Globulin Ratio 0.5 Ratio (1.1-2.1) L 03/21/24 05:34 Specimen Type Clean catch urine 03/17/24 14:50 Urine Color Pale yellow (YELLOW) 03/17/24 14:50 Urine Appearance Clear (CLEAR) 03/17/24 14:50 Urine pH 6.5 (5.0 - 8.0) 03/17/24 14:50 Ur Specific [place] 1.015 (1.000-1.030) 03/17/24 14:50 Urine Protein 2+ (NEGATIVE) 03/17/24 14:50 Urine Glucose (UA) 2+ (NEGATIVE) 03/17/24 14:50 Urine Ketones 2+ (NEGATIVE) 03/17/24 14:50 Urine Blood 2+ (NEGATIVE) 03/17/24 14:50 Urine Nitrite Negative (NEGATIVE) 03/17/24 14:50 Urine Bilirubin Negative (NEGATIVE) 03/17/24 14:50 Urine Urobilinogen Normal (NORMAL) 03/17/24 14:50 Ur Leukocyte Esterase Negative (NEGATIVE) 03/17/24 14:50 Urine RBC 0-2 /HPF (0-3) 03/17/24 14:50 Urine WBC 0-2 /HPF (0-5) 03/17/24 14:50 Ur Squamous Epith Cells Rare /HPF (NEGATIVE) 03/17/24 14:50 Urine Bacteria 1+ /HPF (NEGATIVE) 03/17/24 14:50 Urine Mucus Rare /HPF (NEGATIVE) 03/17/24 14:50 Ur Culture Indicated? No/not indicated 03/17/24 14:50 SARS-CoV-2 (PCR) Negative (NEGATIVE) 03/17/24 14:32 Influenza Type A (PCR) Negative (NEGATIVE) 03/17/24 14:32 Influenza Type B (PCR) Negative (NEGATIVE) 03/17/24 14:32 RSV (PCR) Negative (NEGATIVE) 03/17/24 14:32 Resp Viral Panel (PCR) See scanned report 03/17/24 20:42 Radiology Reviewed: Yes Plan (1) Bilateral pneumonia: Status: Acute Plan: Hermelindo Zimmerman is experiencing bilateral pneumonia as confirmed by imaging and symptomatic evaluation. He will be treated with IV antibiotics and initiated on breathing treatments. Bowel regimen adjustments are necessary as he has expressed concerns about his bowel movements. Ensure monitoring for p otential dehydration as evidenced by the low potassium levels and reduced GFR. Plan for ongoing evaluation of respiratory status and regular reassessment of labs. (2) Acute respiratory failure: Status: Acute Qualifiers: Respiratory failure complication: hypoxia Qualified Code(s): J96.01 - Acute respiratory failure with hypoxia (3) DM II (diabetes mellitus, type II), controlled: Status: Chronic Qualifiers: Diabetes mellitus mcc insulin use: with mcc use Diabetes mellitus complication status: with hyperglycemia Qualified Code(s): E11.65 - Type 2 diabetes mellitus with hyperglycemia; Z79.4 - snf (current) use of insulin Plan: Sliding scale regular insulin per protocol. (4) BPH (benign prostatic hyperplasia): Status: Chronic Qualifiers: Lower urinary tract symptom presence: unspecified whether lower urinary tract symptoms present Qualified Code(s): N40.0 - Benign prostatic hyperplasia without lower urinary tract symptoms (5) GERD (gastroesophageal reflux disease): Status: Chronic Qualifiers: Esophagitis presence: esophagitis presence not specified Qualified Code(s): K21.9 - Gastro-esophageal reflux disease without esophagitis Plan: Start pantoprazole 40 mg daily for GI protection. (6) Parkinson disease: Status: Acute Qualifiers: Dyskinesia presence: unspecified whether dyskinesia Fluctuating manifestations: unspecified whether manifestations fluctuate Qualified Code(s): G20.A1 - Parkinson's disease without dyskinesia, without mention of fluctuations Plan: Resume home meds Sinemet.
--- NOTE | 2024-03-21 10:49 | PCM.PROG ---
Progress Note Progress Note for Day of Date of Exam: 03/21/24 Subjective Subjective: Mr. Schafer white blood cell count has decreased from 17,700 to 12,200, which is a positive sign. Hemoglobin has slightly decreased from 10.9 yesterday to 10.2 today. Neutrophils have decreased from 94.7% yesterday to 89.2% today, indicating improvement. Creatinine has slightly increased from 1.34 yesterday to 1.38 today. The patient is experiencing significant wheezing, audible even without a stethoscope. He reports difficulty getting enough air. No history of asthma or COPD was confirmed. The patient denies being diabetic. He has been using a breathing machine, but is unsure if it's helping. The patient rested well last night. Mr. Schafer white blood cell count has decreased from 17,700 to 12,200, which is a positive sign. Hemoglobin has slightly decreased from 10.9 yesterday to 10.2 today. Neutrophils have decreased from 94.7% yesterday to 89.2% today, indicating improvement. Creatinine has slightly increased from 1.34 yesterday to 1.38 today. The patient is experiencing significant wheezing, audible even without a stethoscope. He reports difficulty getting enough air. No history of asthma or COPD was confirmed. The patient denies being diabetic. He has been using a breathing machine, but is unsure if it's helping. The patient rested well last night. Past Medical Family Social History Allergies: Allergies No Known Allergies Allergy (Verified 08/15/23 11:11) Review of Systems ROS: No change since H&P and Changes notes (describe) Vital Signs and I&O's Vital Signs: Vital Signs Temperature 97.4 F Temperature 98.1 F Pulse Rate [Brachial] 92 Pulse Rate [Brachial] 92 Pulse Rate 92 Respiratory Rate 20 Respiratory Rate 18 Blood Pressure [Left Arm] 126/60 Blood Pressure [Left Arm] 145/42 O2 Sat by Pulse Oximetry 94 O2 Sat by Pulse Oximetry 94 O2 Sat by Pulse Oximetry 93 Intake and Output: Intake & Output 03/18/24 03/19/24 03/20/24 03/21/24 11:59 11:59 11:59 11:59 Intake Total 250 / 250 1610 / 1610 5031 / 5031 2946 / 2946 Output Total 120 / 120 150 / 150 100 / 100 Balance 130 / 130 1460 / 1460 4931 / 4931 2946 / 2946 Physical Exam Oriented: Normal, Time, Person and Place Eyes: Normal Ear: Normal Nose: Normal Throat: Normal Respiratory: Right, Left, Diminished, Wheezes and Rhonchi Cardiovascular: Normal Auscultation: Bowel Sounds: Normal Tenderness: Normal Skin: Normal Musculoskeletal: Normal Psychiatric: Normal, Anxiety and Depression Mood Description: Calm Affect: Normal Speech Pattern: Clear and Appropriate Laboratory and Diagnostics 03/21/24 05:34 03/21/24 05:34 Labs: 03/18/24 13:05 Blood Blood Culture - Preliminary 03/18/24 12:49 Blood Blood Culture - Preliminary 03/17/24 16:58 Blood Blood Culture - Preliminary 03/17/24 16:50 Blood Blood Culture - Preliminary Laboratory WBC 12.2 X10^3/uL (3.6-10.0) H 03/21/24 05:34 RBC 3.59 X10^6/uL (4.7-6.0) L 03/21/24 05:34 Hgb 10.2 g/dL (13.5-18.0) L 03/21/24 05:34 Hct 29.9 % (42.0-54.0) L 03/21/24 05:34 MCV 83.4 fL (80.0-100.0) 03/21/24 05:34 MCH 28.4 pg (27.0-34.0) 03/21/24 05:34 MCHC 34.1 g/dL (33.0-35.0) 03/21/24 05:34 RDW 14.7 % (11.6-16.5) 03/21/24 05:34 Plt Count 209 X10^3/uL (150.0-450.0) 03/21/24 05:34 Plt Count Comment Adequate (ADEQUATE) 03/20/24 04:08 MPV 8.3 fL (7.4-11.0) 03/21/24 05:34 Neut % (Auto) 89.2 % (42.0-75.0) H 03/21/24 05:34 Lymph % (Auto) 2.0 % (21.0-51.0) L 03/21/24 05:34 [place] % (Auto) 6.4 % (0.0-13.0) 03/21/24 05:34 Eos % (Auto) 2.1 % (0.9-2.9) 03/21/24 05:34 Baso % (Auto) 0.3 % (0.2-1.0) 03/21/24 05:34 Neut # (Auto) 10.9 x10^3/uL (2.2-4.8) H 03/21/24 05:34 Lymph # (Auto) 0.2 X10^3/uL (1.3-2.9) L 03/21/24 05:34 [place] # (Auto) 0.8 x10^3/uL (0.3-0.8) 03/21/24 05:34 Eos # (Auto) 0.3 x10^3/uL (0.0-0.2) H 03/21/24 05:34 Baso # (Auto) 0.0 X10^3/uL (0.0-0.1) 03/21/24 05:34 Absolute Nucleated RBC 0.0 /100WBC 03/21/24 05:34 Total Counted 100 03/20/24 04:08 Neutrophils % (Manual) 97 % (39-76) H 03/20/24 04:08 Lymphocytes % (Manual) 2 % (13-43) L 03/20/24 04:08 Monocytes % (Manual) 1 % (4-9) L 03/20/24 04:08 Eosinophils % (Manual) 0 % (0-6) 03/17/24 14:00 Basophils % (Manual) 0 % (0-1) 03/17/24 14:00 Toxic Granulation Slight A 03/17/24 14:00 Plt Morphology Comment Normal (NORMAL) 03/20/24 04:08 RBC Morphology Normal (NORMAL) 03/20/24 04:08 Sodium 135 mmol/L (136-145) L 03/21/24 05:34 Corrected Sodium 136 mmol/L (136-145) 03/21/24 05:34 Potassium 3.8 mmol/L (3.5-5.1) 03/21/24 05:34 Chloride 101 mmol/L (98-107) 03/21/24 05:34 Carbon Dioxide 25.6 mmol/L (21-32) 03/21/24 05:34 BUN 27 mg/dL (7-18) H 03/21/24 05:34 Creatinine 1.38 mg/dL (0.70-1.30) H 03/21/24 05:34 Est GFR (MDRD) Af Amer > 60 (>60) 03/21/24 05:34 Est GFR (MDRD) Non-Af 52 (>60) L 03/21/24 05:34 Glucose 152 mg/dL (65-99) H 03/21/24 05:34 POC Glucose (mg/dL) 149 mg/dL (65-99) H 03/21/24 05:33 Lactic Acid 1.7 mmol/L (0.4-2.0) 03/20/24 04:08 Calcium 8.1 mg/dL (8.5-10.1) L 03/21/24 05:34 Corrected Calcium 9.8 mg/dL (8.5-10.1) 03/21/24 05:34 Magnesium 2.2 mg/dL (2.0-2.9) 03/20/24 04:08 Total Bilirubin 1.00 mg/dL (0.2-1.0) 03/21/24 05:34 AST 21 Units/L (15-37) 03/21/24 05:34 ALT 9 Units/L (12-78) L 03/21/24 05:34 Alkaline Phosphatase 102 Units/L (46-116) 03/21/24 05:34 Troponin I High Sens 5.1 ng/L (4.0-60.0) 03/17/24 14:00 Total Protein 5.7 g/dL (6.4-8.2) L 03/21/24 05:34 Albumin 1.9 g/dL (3.4-5.0) L 03/21/24 05:34 Globulin 3.8 g/dL (2.5-4.5) 03/21/24 05:34 Albumin/Globulin Ratio 0.5 Ratio (1.1-2.1) L 03/21/24 05:34 Specimen Type Clean catch urine 03/17/24 14:50 Urine Color Pale yellow (YELLOW) 03/17/24 14:50 Urine Appearance Clear (CLEAR) 03/17/24 14:50 Urine pH 6.5 (5.0 - 8.0) 03/17/24 14:50 Ur Specific [place] 1.015 (1.000-1.030) 03/17/24 14:50 Urine Protein 2+ (NEGATIVE) 03/17/24 14:50 Urine Glucose (UA) 2+ (NEGATIVE) 03/17/24 14:50 Urine Ketones 2+ (NEGATIVE) 03/17/24 14:50 Urine Blood 2+ (NEGATIVE) 03/17/24 14:50 Urine Nitrite Negative (NEGATIVE) 03/17/24 14:50 Urine Bilirubin Negative (NEGATIVE) 03/17/24 14:50 Urine Urobilinogen Normal (NORMAL) 03/17/24 14:50 Ur Leukocyte Esterase Negative (NEGATIVE) 03/17/24 14:50 Urine RBC 0-2 /HPF (0-3) 03/17/24 14:50 Urine WBC 0-2 /HPF (0-5) 03/17/24 14:50 Ur Squamous Epith Cells Rare /HPF (NEGATIVE) 03/17/24 14:50 Urine Bacteria 1+ /HPF (NEGATIVE) 03/17/24 14:50 Urine Mucus Rare /HPF (NEGATIVE) 03/17/24 14:50 Ur Culture Indicated? No/not indicated 03/17/24 14:50 SARS-CoV-2 (PCR) Negative (NEGATIVE) 03/17/24 14:32 Influenza Type A (PCR) Negative (NEGATIVE) 03/17/24 14:32 Influenza Type B (PCR) Negative (NEGATIVE) 03/17/24 14:32 RSV (PCR) Negative (NEGATIVE) 03/17/24 14:32 Resp Viral Panel (PCR) See scanned report 03/17/24 20:42 Radiology Reviewed: Yes Plan (1) Bilateral pneumonia: Status: Acute Qualifiers: Pneumonia type: due to unspecified organism Plan: I will order a repeat chest x-ray today and tomorrow to follow up on the patchy alveolar infiltrates observed in both lungs yesterday. I'm prescribing a Medrol dose pack for 6 days to help with breathing. The dosage will be 6 tablets (4mg each) on the first day, 5 on the second day, 4 on the third day, and so on. All tablets can be given at once each day. We'll need to monitor blood sugar levels closely as the steroids may cause an increase. I'm al so ordering a sliding scale insulin protocol. I'll ensure the patient is on Protonix 40mg IV daily for GI protection. We'll continue with the current antibiotic regimen of Zosyn and Vancomycin, as the white blood cell count is decreasing, indicating effectiveness. An AIT (Antibiotic Identification Test) is pending, and we'll review the results when available. (2) Acute respiratory failure: Status: Acute Qualifiers: Respiratory failure complication: hypoxia Qualified Code(s): J96.01 - Acute respiratory failure with hypoxia (3) DM II (diabetes mellitus, type II), controlled: Status: Chronic Qualifiers: Diabetes mellitus long-term insulin use: with long-term use Diabetes mellitus complication status: with hyperglycemia Qualified Code(s): E11.65 - Type 2 diabetes mellitus with hyperglycemia; Z79.4 - shelter (current) use of insulin Plan: Sliding scale regular insulin per protocol. (4) BPH (benign prostatic hyperplasia): Status: Chronic Qualifiers: Lower urinary tract symptom presence: unspecified whether lower urinary tract symptoms present Qualified Code(s): N40.0 - Benign prostatic hyperplasia without lower urinary tract symptoms (5) GERD (gastroesophageal reflux disease): Status: Chronic Qualifiers: Esophagitis presence: esophagitis presence not specified Qualified Code(s): K21.9 - Gastro-esophageal reflux disease without esophagitis Plan: Start pantoprazole 40 mg daily for GI protection. (6) Parkinson disease: Status: Acute Qualifiers: Dyskinesia presence: unspecified whether dyskinesia Fluctuating manifestations: unspecified whether manifestations fluctuate Qualified Code(s): G20.A1 - Parkinson's disease without dyskinesia, without mention of fluctuations Plan: Resume home meds Sinemet.
--- NOTE | 2024-03-21 12:23 | RAD ---
EXAM:Portable chestHISTORY:WheezingCOMPARISON:03/20/20 24FINDINGS:Heart is mildly enlarged. No congestive heart failure is noted. Aorta is calcified and ectatic. Right hemidiaphragm is chronically elevated. Interstitial lung changes and patchy alveolar infiltrates remain bilaterally unchanged. No pleural effusions identified. Bony thorax is unremarkable.IMPRESSION:No significant change from the prior examinationTHIS IS AN ELECTRONICALLY VERIFIED FINAL [id number]/21/2024 12:19 PM - Electronically signed by Bruno Gardner MD
[2024-03-21] MEDS: PROTONIX INJ 40 MG VIAL IVP SCH (12:24)
[2024-03-21] MEDS: GLUCOPHAGE ONE (14:02)
[2024-03-21] MEDS: MEDROL DOSEPAK 4 MG PER TAB PO SCH (14:09)
[2024-03-21] MEDS ORDERED: PHARMACY COMMENT IV SCH (22:45)
[2024-03-21 23:13] LABS: CREATININE 1.32 mg/dL (0.70-1.30); VANCOMYCIN,TROUGH 13.1 ug/mL (15-20)
[2024-03-22] MEDS ORDERED: GLUCOPHAGE ONE ×2 (05:23→13:06)
[2024-03-22 06:00] LABS: BASOPHILS % (AUTO) 0.2 % (0.2-1.0); EOSINOPHILS % (AUTO) 0.1 % (0.9-2.9); HEMATOCRIT 32.8 % (42.0-54.0); HEMOGLOBIN 11.1 g/dL (13.5-18.0); LYMPHOCYTES # (AUTO) 0.2 X10^3/uL (1.3-2.9); LYMPHOCYTES % (AUTO) 1.7 % (21.0-51.0); MEAN CORPUSCULAR HEMOGLOBIN 28.2 pg (27.0-34.0); MEAN CORPUSCULAR HGB CONC 33.9 g/dL (33.0-35.0); MEAN CORPUSCULAR VOLUME 83.3 fL (80.0-100.0); MEAN PLATELET VOLUME 8.2 fL (7.4-11.0); MONOCYTES # (AUTO) 0.5 x10^3/uL (0.3-0.8); MONOCYTES % (AUTO) 4.4 % (0.0-13.0); NEUTROPHILS % (AUTO) 93.6 % (42.0-75.0); PLATELET COUNT 267 X10^3/uL (150.0-450.0); RED BLOOD COUNT 3.94 X10^6/uL (4.7-6.0); WHITE BLOOD COUNT 11.7 X10^3/uL (3.6-10.0)
[2024-03-22 06:17] LABS: ALANINE AMINOTRANSFERASE 7 Units/L (12-78); ALBUMIN 2.1 g/dL (3.4-5.0); ALKALINE PHOSPHATASE 158 Units/L (46-116); ASPARTATE AMINO TRANSFERASE 23 Units/L (15-37); BLOOD UREA NITROGEN 22 mg/dL (7-18); CALCIUM 8.4 mg/dL (8.5-10.1); CARBON DIOXIDE 26.2 mmol/L (21-32); CHLORIDE 100 mmol/L (98-107); COR CA(FOR HYPOALB) 9.9 mg/dL (8.5-10.1); COR NA(FOR HYPERGLY) 138 mmol/L (136-145); CREATININE 1.31 mg/dL (0.70-1.30); GLUCOSE 186 mg/dL (65-99); MAGNESIUM 3.1 mg/dL (2.0-2.9); POTASSIUM 4.2 mmol/L (3.5-5.1); SODIUM 136 mmol/L (136-145); TOTAL PROTEIN 6.5 g/dL (6.4-8.2); eGFR NON BLACK RACES 55 (>60)
[2024-03-22 06:37] LABS: BAND NEUTROPHILS % 1 % (0-10); PLATELET MORPHOLOGY COMMENT NORMAL (NORMAL)
[2024-03-22] MEDS: ROBITUSSIN DM PO PRN (19:51)
[2024-03-22] MEDS: GLUCOPHAGE ONE (21:55)
[2024-03-22] MEDS ORDERED: COLACE CAP 100 MG PO PRN (23:27)
[2024-03-22] MEDS ORDERED: MILK OF MAGNESIA PO PRN (23:28)
[2024-03-23] MEDS: GLUCOPHAGE ONE ×2 (05:16→21:10)
[2024-03-23 06:23] LABS: BASOPHILS % (AUTO) 0.2 % (0.2-1.0); EOSINOPHILS # (AUTO) 0.1 x10^3/uL (0.0-0.2); EOSINOPHILS % (AUTO) 0.6 % (0.9-2.9); HEMATOCRIT 33.2 % (42.0-54.0); HEMOGLOBIN 11.3 g/dL (13.5-18.0); LYMPHOCYTES # (AUTO) 0.3 X10^3/uL (1.3-2.9); LYMPHOCYTES % (AUTO) 2.4 % (21.0-51.0); MEAN CORPUSCULAR HEMOGLOBIN 28.4 pg (27.0-34.0); MEAN CORPUSCULAR HGB CONC 34.1 g/dL (33.0-35.0); MEAN CORPUSCULAR VOLUME 83.2 fL (80.0-100.0); MEAN PLATELET VOLUME 7.8 fL (7.4-11.0); MONOCYTES # (AUTO) 0.7 x10^3/uL (0.3-0.8); MONOCYTES % (AUTO) 6.8 % (0.0-13.0); NEUTROPHILS # (AUTO) 9.6 x10^3/uL (2.2-4.8); PLATELET COUNT 312 X10^3/uL (150.0-450.0); RED BLOOD COUNT 3.99 X10^6/uL (4.7-6.0); RED CELL DISTRIBUTION WIDTH 14.6 % (11.6-16.5); WHITE BLOOD COUNT 10.6 X10^3/uL (3.6-10.0)
[2024-03-23 06:50] LABS: ALANINE AMINOTRANSFERASE 11 Units/L (12-78); ALKALINE PHOSPHATASE 154 Units/L (46-116); ASPARTATE AMINO TRANSFERASE 28 Units/L (15-37); BLOOD UREA NITROGEN 16 mg/dL (7-18); CALCIUM 8.4 mg/dL (8.5-10.1); CARBON DIOXIDE 26.7 mmol/L (21-32); CHLORIDE 102 mmol/L (98-107); COR NA(FOR HYPERGLY) 139 mmol/L (136-145); CREATININE 1.19 mg/dL (0.70-1.30); GLUCOSE 175 mg/dL (65-99); MAGNESIUM 2.6 mg/dL (2.0-2.9); SODIUM 137 mmol/L (136-145); TOTAL PROTEIN 6.2 g/dL (6.4-8.2); eGFR NON BLACK RACES > 60 (>60)
[2024-03-23] MEDS ORDERED: GLUCOPHAGE ONE (14:33)
--- NOTE | 2024-03-24 01:57 | RAD ---
PROCEDURE: Chest X-ray 1 View.HISTORY: WHEEZING, JANETT PNEUMONIA ; .TECHNIQUE: AP portable view.COMPARISON: March 21 this year.TECHNICAL QUALITY: Satisfactory.FINDINGS:Normal size heart.Mediastinum and hilar regions show no masses or lymphadenopathy. Tortuous aorta.Normal central vascularity.No pulmonary consolidation, masses, pleural fluid, or pneumothorax. Unchanged elevated right hemidiaphragm.No acute bony abnormality.IMPRESSION:Resolution of the patient's pneumonia with no other interval change.THIS IS AN ELECTRONICALLY VERIFIED FINAL [id number]/24/2024 1:54 AM - Electronically signed by David Vernon MD
[2024-03-24] MEDS: GLUCOPHAGE ONE (05:47)
[2024-03-24 06:13] LABS: ALANINE AMINOTRANSFERASE 18 Units/L (12-78); ALBUMIN 2.1 g/dL (3.4-5.0); ALKALINE PHOSPHATASE 144 Units/L (46-116); ASPARTATE AMINO TRANSFERASE 26 Units/L (15-37); BLOOD UREA NITROGEN 16 mg/dL (7-18); CALCIUM 8.8 mg/dL (8.5-10.1); CARBON DIOXIDE 28.9 mmol/L (21-32); CHLORIDE 102 mmol/L (98-107); COR CA(FOR HYPOALB) 10.3 mg/dL (8.5-10.1); COR NA(FOR HYPERGLY) 140 mmol/L (136-145); CREATININE 1.01 mg/dL (0.70-1.30); GLUCOSE 179 mg/dL (65-99); POTASSIUM 4.2 mmol/L (3.5-5.1); SODIUM 138 mmol/L (136-145); TOTAL PROTEIN 6.1 g/dL (6.4-8.2); eGFR NON BLACK RACES > 60 (>60)
[2024-03-24 06:16] LABS: BASOPHILS # (AUTO) 0.1 X10^3/uL (0.0-0.1); BASOPHILS % (AUTO) 0.6 % (0.2-1.0); EOSINOPHILS # (AUTO) 0.3 x10^3/uL (0.0-0.2); EOSINOPHILS % (AUTO) 3.2 % (0.9-2.9); HEMOGLOBIN 12.1 g/dL (13.5-18.0); LYMPHOCYTES # (AUTO) 0.4 X10^3/uL (1.3-2.9); LYMPHOCYTES % (AUTO) 3.9 % (21.0-51.0); MEAN CORPUSCULAR HEMOGLOBIN 28.4 pg (27.0-34.0); MEAN CORPUSCULAR HGB CONC 34.7 g/dL (33.0-35.0); MEAN PLATELET VOLUME 7.6 fL (7.4-11.0); MONOCYTES # (AUTO) 0.8 x10^3/uL (0.3-0.8); MONOCYTES % (AUTO) 9.1 % (0.0-13.0); NEUTROPHILS # (AUTO) 7.4 x10^3/uL (2.2-4.8); NEUTROPHILS % (AUTO) 83.2 % (42.0-75.0); PLATELET COUNT 332 X10^3/uL (150.0-450.0); RED BLOOD COUNT 4.27 X10^6/uL (4.7-6.0); RED CELL DISTRIBUTION WIDTH 14.6 % (11.6-16.5); WHITE BLOOD COUNT 8.9 X10^3/uL (3.6-10.0)
[2024-03-24 07:06] LABS: PLATELET MORPHOLOGY COMMENT NORMAL (NORMAL)
[2024-03-24] MEDS ORDERED: VANCOMYCIN IV *PREMIX 1.25 G/250 ML BAG 1.25 G/250 ML PIGGYBACK IV SCH (11:00)
[2024-03-24 13:13] VITALS: PULSE 89; RESP 20; TEMP 98.3; O2SAT 97
[2024-03-24 13:14] VITALS: BP 164/84
== END 2024-03-24 13:45 | DRG 193 ==
LOC: ER 13:49 → MED/SURG 13:49 → OBSVTOIN 19:01 → MED/SURG 19:59 → INTOOBSV 03-19 08:00
PROVIDERS: ADMIT Internal Medicine; ATTEND Internal Medicine
DX: E11.65 Type 2 diabetes mellitus with hyperglycemia; Z79.4 Long term (current) use of insulin; Z20.822 Contact with and (suspected) exposure to COVID-19; E83.42 Hypomagnesemia; N40.0 Benign prostatic hyperplasia without lower urinary tract symptoms; J18.8 Other pneumonia, unspecified organism; K21.9 Gastro-esophageal reflux disease without esophagitis; G20.A1 Parkinson's disease without dyskinesia, without mention of fluctuations; Y92.9 Unspecified place or not applicable; X58.XXXA Exposure to other specified factors, initial encounter; S61.412A Laceration without foreign body of left hand, initial encounter; J96.01 Acute respiratory failure with hypoxia; Z16.29 Resistance to other single specified antibiotic; B96.1 Klebsiella pneumoniae [K. pneumoniae] as the cause of diseases classified elsewhere; R26.89 Other abnormalities of gait and mobility; B96.29 Other Escherichia coli [E. coli] as the cause of diseases classified elsewhere; S51.811A Laceration without foreign body of right forearm, initial encounter; S51.012A Laceration without foreign body of left elbow, initial encounter